=== PATIENT | male | born 1970 | race Caucasian/White ===

== ENCOUNTER → 2018-06-02 12:37 | Outpatient (CLI) | payer OTHER, MEDICAID, SELFPAY ==
[2018-06-02 13:55] LABS: Alanine Aminotransferase 33 IU/L (21-72); Albumin 4.5 g/dL (3.5-5.0); Albumin Globulin Ratio 1.3 (1.0-2.8); Alkaline Phosphatase 80 U/L (38-126); Aspartate Aminotransferase 21 IU/L (17-59); Bilirubin Total 0.5 mg/dL (0.2-1.3); Blood Urea Nitrogen 15 mg/dL (9-20); Carbon Dioxide 32 mmol/L (22-32); Chloride 96 mmol/L (98-107); Cholesterol 179 mg/dL (140-199); Estimated Glomerular Filt Rate > 60.0 mL/min (>60); Globulin 3.6 g/dL (1.7-4.1); Glucose 96 mg/dL (70-100); HDL Cholesterol 65 mg/dL (40-60); HEMOLYSIS < 15 (0-50); LDL Cholesterol Calculated 103 mg/dL (<100); Potassium 4.2 mmol/L (3.4-5.1); Sodium 142 mmol/L (137-145); Total Protein 8.1 g/dL (6.3-8.2); Triglycerides 55 mg/dL (35-150)
[2018-06-02 13:58] LABS: Hematocrit 40.3 % (41-53); Hemoglobin 13.9 g/dL (13.5-17.5); Mean Corpuscular HGB Conc 34.5 % (30-36); Mean Corpuscular Hemoglobin 31.2 PG (26-34); Mean Corpuscular Volume 90.2 fL (80-100); Platelet Count 141 X10^3/uL (150-400); Red Blood Cell Count 4.46 X10^6/uL (4.5-5.9); White Blood Cell Count 5.6 X10^3/uL (4.5-11.0)
[2018-06-02 13:59] LABS: Hemoglobin A1C% w Est Avg Glu > 14.0 % (4.0-6.0)
[2018-06-02 14:27] LABS: TSH w/ Reflex to FT4 1.96 uIU/mL (0.47-4.68)
[2018-06-02 14:58] LABS: Creatinine Urine Random 34.7 mg/dL
[2018-06-02 15:03] LABS: Microalbumi Creatinin Ratio Ur 161.3 ug/mg CR (<30); Microalbumin Urine Random 5.6 mg/dL (0-1.6)
[2018-06-02 15:18] LABS: Vitamin D 25 Hydroxy (D3) 21.3 ng/mL (30.0-100.0)
== END ==
PROVIDERS: Visit Provider Student in an Organized Health Care Education/Training Program
DX: R53.83 Other fatigue (principal); E11.9 Type 2 diabetes mellitus without complications; Z79.899 Other long term (current) drug therapy; E55.9 Vitamin D deficiency, unspecified; G62.9 Polyneuropathy, unspecified
CPT/HCPCS: 36415; 80053; 80061; 82043; 82306; 82570; 83036; 84443; 85027; 86341

== ENCOUNTER → 2019-04-15 07:57 | Outpatient (CLI) | payer OTHER, MEDICAID, SELFPAY ==
[2019-04-15 09:03] LABS: Hemoglobin 11.8 g/dL (13.5-17.5); Mean Corpuscular HGB Conc 34.7 % (30-36); Mean Corpuscular Hemoglobin 31.8 PG (26-34); Mean Corpuscular Volume 91.7 fL (80-100); Platelet Count 149 X10^3/uL (150-400); Red Blood Cell Count 3.71 X10^6/uL (4.5-5.9); Red Cell Distribution Width 13.3 % (11.6-14.8); White Blood Cell Count 6.1 X10^3/uL (4.5-11.0)
[2019-04-15 09:07] LABS: Creatinine Urine Random 27.7 mg/dL
[2019-04-15 09:12] LABS: Microalbumi Creatinin Ratio Ur 220.2 ug/mg CR (<30); Microalbumin Urine Random 6.1 mg/dL (0-1.6)
[2019-04-15 09:13] LABS: BUN Creatinine Ratio 23.3 (6-22); Blood Urea Nitrogen 14 mg/dL (9-20); Calcium 9.1 mg/dL (8.4-10.2); Carbon Dioxide 29 mmol/L (22-32); Chloride 96 mmol/L (98-107); Estimated Glomerular Filt Rate > 60.0 mL/min (>60); Glucose 475 mg/dL (70-100); HEMOLYSIS < 15 (0-50); Potassium 3.9 mmol/L (3.4-5.1); Sodium 135 mmol/L (137-145)
[2019-04-15 09:29] LABS: Creatine Kinase 99 U/L (55-170)
[2019-04-15 09:31] LABS: Hemoglobin A1C% w Est Avg Glu 13.7 % (4.0-6.0)
[2019-04-15 09:35] LABS: Vitamin D 25 Hydroxy (D3) 19.1 ng/mL (30.0-100.0)
== END ==
PROVIDERS: PCP Student in an Organized Health Care Education/Training Program; Visit Provider Student in an Organized Health Care Education/Training Program
DX: E11.21 Type 2 diabetes mellitus with diabetic nephropathy (principal); E55.9 Vitamin D deficiency, unspecified; M79.10 Myalgia, unspecified site
CPT/HCPCS: 36415; 80048; 82043; 82306; 82550; 82570; 83036; 85027

== ENCOUNTER 2019-05-18 18:39 | Emergency (ER) | payer OTHER, MEDICAID, SELFPAY ==
[2019-05-18] VITALS (9 sets, daily range): BP systolic 81–126; BP diastolic 64–95; PULSE 98–105; RESP 13–20; TEMP 36.3; O2SAT 94–100
--- NOTE | 2019-05-18 19:02 | DI.CT.S_ITS ---
PROCEDURE: CT HEAD/BRAIN WO CON INDICATIONS: syncope and near syncope TECHNIQUE: Noncontrast 4.5 mm thick angled axial sections acquired from the foramen magnum to the vertex, with coronal and sagittal reformats. For radiation dose reduction, the following was used: automated exposure control, adjustment of mA and/or kV according to patient size. COMPARISON: None. FINDINGS: Image quality: Excellent. CSF spaces: Basal cisterns are patent. No extra-axial fluid collections. Ventricles are normal in size and shape. Brain: No midline shift. No intracranial masses or hemorrhage. Johnson-white matter interface is normal. Skull and face: Calvarium and visualized facial bones are intact, without suspicious lesions. Posterior scalp swelling Sinuses: Visualized sinuses and mastoids are clear. IMPRESSION: No acute intracranial process. Posterior scalp swelling Dictated by: Sunday Clay M.D. on 05/18/2019 at 19:21 Approved by: Sunday Clay M.D. on 05/18/2019 at 19:24
--- NOTE | 2019-05-18 19:03 | DI.RAD.S_ITS ---
PROCEDURE: XR CHEST 2V INDICATIONS: syncope TECHNIQUE: 2 views of the chest were acquired. COMPARISON: None. FINDINGS: Surgical changes and devices: None. Lungs and pleura: Lungs are clear. No pleural effusions or pneumothorax. Mediastinum: Mediastinal contours are normal. Heart size is normal. Bones and chest wall: No suspicious bony abnormalities. Soft tissues appear unremarkable. IMPRESSION: No acute disease. Dictated by: Sunday Clay M.D. on 05/18/2019 at 19:49 Approved by: Sunday Clay M.D. on 05/18/2019 at 19:50
[2019-05-18 19:10] LABS: Add Manual Diff / Slide Review NO; Basophils Absolute Auto 0 /uL (0-100); Basophils Percent Auto 0.3 % (0-2); Eosinophils Absolute Auto 200 /uL (0-450); Eosinophils Percent Auto 2.3 % (2-4); Hematocrit 35.5 % (41-53); Hemoglobin 12.3 g/dL (13.5-17.5); Lymphocytes Absolute Auto 2400 /uL (1100-4500); Lymphocytes Percent Auto 35.7 % (25-40); Mean Corpuscular HGB Conc 34.7 % (30-36); Mean Corpuscular Hemoglobin 31.8 PG (26-34); Mean Corpuscular Volume 91.5 fL (80-100); Monocytes Absolute Auto 700 /uL (0-900); Monocytes Percent Auto 10.2 % (3-14); Neutrophils Absolute Auto 3400 /uL (1500-7000); Neutrophils Percent Auto 51.5 % (50-75); Platelet Count 149 X10^3/uL (150-400); Red Blood Cell Count 3.88 X10^6/uL (4.5-5.9); Red Cell Distribution Width 13.4 % (11.6-14.8); White Blood Cell Count 6.6 X10^3/uL (4.5-11.0)
[2019-05-18] MEDS: SODIUM CHLORIDE 0.9% 1,000 ML 1000 ML IV (19:11)
[2019-05-18 19:15] LABS: INR 0.9 (0.9-1.3); Prothrombin Time 10.7 SECONDS (10.1-12.7)
[2019-05-18 19:18] LABS: PTT Partial Thromboplastin Tim 30 SECONDS (26.4-36.2)
[2019-05-18 19:23] LABS: Alanine Aminotransferase 18 IU/L (21-72); Albumin 3.7 g/dL (3.5-5.0); Albumin Globulin Ratio 1.1 (1.0-2.8); Alkaline Phosphatase 80 U/L (38-126); Aspartate Aminotransferase 22 IU/L (17-59); Bilirubin Total 0.4 mg/dL (0.2-1.3); Blood Urea Nitrogen 32 mg/dL (9-20); Calcium 10.4 mg/dL (8.4-10.2); Carbon Dioxide 30 mmol/L (22-32); Chloride 99 mmol/L (98-107); Creatine Kinase 45 U/L (55-170); Estimated Glomerular Filt Rate > 60.0 mL/min (>60); Globulin 3.4 g/dL (1.7-4.1); Glucose 267 mg/dL (70-100); HEMOLYSIS < 15 (0-50); Lipase 100 U/L (23-300); Potassium 4.2 mmol/L (3.4-5.1); Sodium 136 mmol/L (137-145); Total Protein 7.1 g/dL (6.3-8.2)
[2019-05-18 19:35] LABS: Troponin I < 0.012 ng/mL (0.01-0.034)
--- NOTE | 2019-05-18 19:50 | PC.NURSE ---
c/o multiple syncopal events over past days. x 3 today. States they happen when he changes position, from sitting to standing, but has happened occasionally when walking, having been upright for a while. He denies chest pain, shortness of breath, feeling of heart racing, black or bloody stools, nausea / vomiting. He is pale, warm and dry w/ easy work of breathing. Normal Neuro status w/o focal weakness.
--- NOTE | 2019-05-18 20:12 | ED.DIZZY ---
HPI - Dizziness <Gualberto BRYNN Braxton - Last Filed: 05/18/19 23:55> General Chief Complaint: Syncope Stated Complaint: low blood pressure/faint x4 days Time Seen by Provider: 05/18/19 18:52 Source: patient and family Mode of arrival: Wheelchair Limitations: no limitations History of Present Illness HPI Narrative: This is a 49-year-old gentleman, smoker, who presents to ED with his mother with chief complain of frequent dizziness with low blood pressure and syncopal episode x3 for about a minute or less per his mother. However, this has been an ongoing problem for last 4-5 months per the patient's PMR. Patient reports dizziness with changing in positions. Patient has a history of insulin-dependent diabetes. Patient has been having low blood pressure in SBP in 80- 90's. The patient denies currently on hypertensive medication. Patient states his usual blood glucose ranged from 200-300 mg/dL and adjust his insulin dose after the [facility]SB[facility] check each AC along long acting Insulin use. Patient also states he has been having frequent loose dark stools about 6 to 8 times a day and has occasional stool incontinence and night. Patient reports he has been very well hydrating with water daily. Takes multiple doses of Pepto-Bismol to cope with this and dark stool could be from Pepto-Bismol use. Patient denies chest pain, palpitations, irregular heartbeats, breathing difficulty, abdominal pain, tarry stools or urinary symptoms, fever/chills, nausea or vomiting. Patient denies limb weakness, vision change, speech difficulty. Related Data Home Medications Medication Instructions Recorded Confirmed insulin aspart U-100 100 unit/mL 15 unit SUBCUT QAC ml 06/02/18 04/15/19 (3 mL) subcutaneous pen insulin glargine 100 unit/mL (3 50 unit SUBCUT DAILY 06/02/18 04/15/19 mL) subcutaneous pen Previous Rx's Medication Instructions Recorded aspirin 81 mg tablet,delayed 81 mg PO DAILY #90 tab 06/02/18 release blood sugar diagnostic #100 each 06/02/18 atorvastatin 40 mg tablet 40 mg PO BEDTIME #90 tab 09/17/18 gabapentin 300 mg capsule 300 mg PO TID #270 cap 09/17/18 metformin 1,000 mg tablet,extended 2,000 mg PO QPM #180 tab 09/17/18 release 24hr insulin aspart U-100 100 unit/mL See Rx Instructions SUBCUT [facility] #10 09/22/18 (3 mL) subcutaneous pen ml sertraline 50 mg tablet 50 mg PO DAILY #30 tab 04/15/19 ferrous sulfate [Feosol] 325 mg PO DAILY #30 tab 05/18/19 Allergies Allergy/AdvReac Type Severity Reaction Status Date / Time No Known Drug Allergies Allergy Verified 04/15/19 08:41 Review of Systems <BRYNN Hairston - Last Filed: 05/18/19 23:55> Review of Systems Narrative: General: Denies fever, chills, fatigue, malaise, sweats. HEENT: Denies sinus pain, ear pain, sore throat, difficulty swallowing, dizziness. Respiratory: Denies dyspnea, cough, wheezing, hemoptysis, sputum. Cardiovascular: Denies chest pain, palpitations, orthopnea, edema. Gastrointestinal: Denies nausea, vomiting, abdominal pain, diarrhea, constipation, melena. : Denies dysuria, frequency, incontinence, hematuria, urinary retention. Musculoskeletal: Denies weakness, joint pain or bony pain. Skin: Denies rash, skin lesions, or other. Neurologic: Reports near-syncope or syncopal episode with dizziness. Denies weakness, headache, numbness, change in speech, confusion, seizures, incoordination. Psychiatric: No concerning psychosocial issues. 12-point review of systems is negative except for those stated above. Patient History <BRYNN Hairston - Last Filed: 05/18/19 23:55> Social History Smoking Status: Current some day smoker Substance Use Type: does not use Exam <BRYNN Hairston - Last Filed: 05/18/19 23:55> Narrative Exam Narrative: GEN: Alert, oriented x 3, medically fragile appearing and appears to be older than stated age and in no acute distress. Head: Normal cephalic, atraumatic. No scalp or temporal tenderness, palpable mass or rash. EYES: Pupils are equal, round, and reactive to light and accommodation. Extraocular muscles are intact bilaterally. There is no subconjunctival hemorrhage, exudate and sclera non-icteric. ENT: Bilateral auditory canals and tympanic membranes clear. Hearing grossly intact. Nose without bleeding, purulent discharge or deviation. Facial sinuses nontender to palpate. Mucous membrane moist, no mucosal lesion. Throat without erythema, tonsillar hypertrophy or exudate. Uvula in midline, airway patent. Neck: Trachea in midline. No JVD, non-tender without lymphadenopathy. No masses or thyroid megaly. Supple, non-tender and no meningeal signs. CARDIAC: Normal tachycardia without murmurs, gallops, or rubs. No chest wall tenderness. No peripheral edema, cyanosis or pallor. Capillary refill is less than 2 seconds. RESPIRATORY: Lungs are clear to auscultate bilaterally. No cough, wheezes, rales, or rhonchi. No stridor, respiratory distress, increase work of breathing, or accessary muscle used. ABD: Abdomen soft, nontender and non-distended. No guarding or rebound tenderness to palpate. Bowel sounds are normal in all 4 quadrants. There is no palpable masses or organomegaly. EXT: Full painless ROM of all extremities with no loss of sensation, strength, effusion or edema. SKIN: Warm, dry, pale. No erythema, lesions or rash over visible areas. BACK: Nontender without deformity or crepitance. No flank tenderness. NEUROLOGICAL: Alert and oriented to place, time and person. Sensation and motor function intact bilaterally. No facial droops, dysphasia. PSYCHIATRIC: Good judgement and reason, without hallucinations, abnormal affect or abnormal behaviors during the examination. Initial Vital Signs Initial Vital Signs: Vital Signs Pulse Rate 105 H 05/18/19 18:50 Respiratory Rate 13 05/18/19 18:50 Blood Pressure 89/64 L 05/18/19 18:50 Pulse Oximetry 99 05/18/19 18:50 <Zeeshan Rodriguez DO - Last Filed: 05/19/19 05:03> Initial Vital Signs Initial Vital Signs: Vital Signs Pulse Rate 105 H 05/18/19 18:50 Respiratory Rate 13 05/18/19 18:50 Blood Pressure 89/64 L 05/18/19 18:50 Pulse Oximetry 99 05/18/19 18:50 Procedures <BRYNN Hairston - Last Filed: 05/18/19 23:55> Stool Hemoccult Procedural Steps Taken: stool placed in appropriate test area, developer placed on stool and control areas and controls appropriately positive and negative Hemoccult result: negative Additional Comments: The patient tolerated well, EMILY Scales stand-by assisted Scores <BRYNN Hairston Last Filed: 05/18/19 23:55> GCS [place] coma scale eye opening: Spontaneous Abida coma scale verbal response: Orientated Abida coma scale motor response: Obey commands [place] coma scale total score: 15 NIH Stroke Scale Level of Conciousness: Alert, keenly responsive Ask month/age: Answers both questions correctly. Open/close eyes, close hand: Performs both tasks correctly Best gaze horizontal: Normal Visual lau: No visual loss Facial palsy: Normal symetrical movement Left arm drift: No drift for full 10 sec Right arm drift: No drift for full 10 sec Left leg drift: No drift for full 10 sec Right leg drift: No drift for full 10 sec Limb ataxia: Absent Sensory on face/arms/legs: Normal, no sensory loss Best language: No aphasia, normal Dysarthria: Normal Extinction or inattention: No abnormality Total NIH Stroke scale score: 0 Course <BRYNN Hairston - Last Filed: 05/18/19 23:55> Orders Ordered: ED Orders 05/18/19 20:20 Urine Microscopic Stat Discontinued Medications Sodium Chloride (Normal Saline 0.9%) 1,000 mls @ 1,000 mls/hr IV BOLUS ONE Stop: 05/18/19 20:00 Last Infusion: 05/18/19 20:14 Dose: 1,000 mls/hr Documented by: Admin: 05/18/19 19:11 Dose: 1,000 mls/hr Documented by: ALEXIS Sodium Chloride (Normal Saline 0.9%) 1,000 mls @ 150 mls/hr IV CONT IVONNE Last Infusion: 05/18/19 22:05 Dose: 150 mls/hr Documented by: Admin: 05/18/19 20:30 Dose: 150 mls/hr Documented by: SHIRLEY Vital Signs Vital signs: Vital Signs - 8 hr 05/18/19 21:11 05/18/19 21:30 Pulse Rate 100 H 98 H Respiratory Rate 20 16 Blood Pressure [Left Arm] 122/71 126/77 Pulse Oximetry 94 <Zeeshan Rodriguez DO - Last Filed: 05/19/19 05:03> Orders Ordered: ED Orders 05/18/19 20:20 Urine Microscopic Stat Discontinued Medications Sodium Chloride (Normal Saline 0.9%) 1,000 mls @ 1,000 mls/hr IV BOLUS ONE Stop: 05/18/19 20:00 Last Infusion: 05/18/19 20:14 Dose: 1,000 mls/hr Documented by: Admin: 05/18/19 19:11 Dose: 1,000 mls/hr Documented by: ALEXIS Sodium Chloride (Normal Saline 0.9%) 1,000 mls @ 150 mls/hr IV CONT IVONNE Last Infusion: 05/18/19 22:05 Dose: 150 mls/hr Documented by: Admin: 05/18/19 20:30 Dose: 150 mls/hr Documented by: SHIRLEY Vital Signs Vital signs: Vital Signs - 8 hr 05/18/19 21:11 05/18/19 21:30 Pulse Rate 100 H 98 H Respiratory Rate 20 16 Blood Pressure [Left Arm] 122/71 126/77 Pulse Oximetry 94 MDM - Dizziness <BRYNN Hairston - Last Filed: 05/18/19 23:55> Differential Diagnosis Differential diagnosis: Likely orthostatic hypotension, cerebrovascular accident and other (Dehydration, GI bleed, syncopal episode) Medical Records Attestation: I reviewed the patient's medical records. Lab Data Attestation: I reviewed the patient's lab results. Result diagrams: 05/18/19 19:00 05/18/19 19:00 Labs: Lab Results 05/18/19 05/18/19 05/18/19 Range/Units 19:00 19:00 19:00 WBC 6.6 (4.5-11.0) X10^3/uL RBC 3.88 L (4.5-5.9) X10^6/uL Hgb 12.3 L (13.5-17.5) g/dL Hct 35.5 L (41-53) % MCV 91.5 (80-100) fL MCH 31.8 (26-34) PG MCHC 34.7 (30-36) % RDW 13.4 (11.6-14.8) % Plt Count 149 L (150-400) X10^3/uL Neut % (Auto) 51.5 (50-75) % Lymph % (Auto) 35.7 (25-40) % Lawrence % (Auto) 10.2 (3-14) % Eos % (Auto) 2.3 (2-4) % Baso % (Auto) 0.3 (0-2) % Neut # (Auto) 3400 (8457-8529) /uL Lymph # (Auto) 2400 (6140-6093) /uL Lawrence # (Auto) 700 (0-900) /uL Eos # (Auto) 200 (0-450) /uL Baso # (Auto) 0 (0-100) /uL PT (10.1-12.7) SECONDS INR (0.9-1.3) APTT (26.4-36.2) SECONDS Sodium 136 L (137-145) mmol/L Potassium 4.2 (3.4-5.1) mmol/L Chloride 99 (98-107) mmol/L Carbon Dioxide 30 (22-32) mmol/L BUN 32 H (9-20) mg/dL Creatinine 0.80 (0.66-1.25) mg/dL Estimated GFR > 60.0 (>60) mL/min BUN/Creatinine Ratio 40.0 H (6-22) Glucose 267 H (70-100) mg/dL Calcium 10.4 H (8.4-10.2) mg/dL Total Bilirubin 0.4 (0.2-1.3) mg/dL AST 22 (17-59) IU/L ALT 18 L (21-72) IU/L Alkaline Phosphatase 80 (38-126) U/L Total Creatine Kinase 45 L (55-170) U/L CK-MB (CK-2) TNP CK-MB (CK-2) Rel Index TNP Troponin I < 0.012 (0.01-0.034) ng/mL Total Protein 7.1 (6.3-8.2) g/dL Albumin 3.7 (3.5-5.0) g/dL Globulin 3.4 (1.7-4.1) g/dL Albumin/Globulin Ratio 1.1 (1.0-2.8) Lipase 100 (23-300) U/L Urine RBC (0-5/HPF) Urine WBC (0-5/HPF) Urine Bacteria (None) Hyaline Casts (None) Ur Culture Indicated? 05/18/19 05/18/19 Range/Units 19:00 20:20 WBC (4.5-11.0) X10^3/uL RBC (4.5-5.9) X10^6/uL Hgb (13.5-17.5) g/dL Hct (41-53) % MCV (80-100) fL MCH (26-34) PG MCHC (30-36) % RDW (11.6-14.8) % Plt Count (150-400) X10^3/uL Neut % (Auto) (50-75) % Lymph % (Auto) (25-40) % Lawrence % (Auto) (3-14) % Eos % (Auto) (2-4) % Baso % (Auto) (0-2) % Neut # (Auto) (7451-4798) /uL Lymph # (Auto) (5668-9826) /uL Lawrence # (Auto) (0-900) /uL Eos # (Auto) (0-450) /uL Baso # (Auto) (0-100) /uL PT 10.7 (10.1-12.7) SECONDS INR 0.9 (0.9-1.3) APTT 30 (26.4-36.2) SECONDS Sodium (137-145) mmol/L Potassium (3.4-5.1) mmol/L Chloride (98-107) mmol/L Carbon Dioxide (22-32) mmol/L BUN (9-20) mg/dL Creatinine (0.66-1.25) mg/dL Estimated GFR (>60) mL/min BUN/Creatinine Ratio (6-22) Glucose (70-100) mg/dL Calcium (8.4-10.2) mg/dL Total Bilirubin (0.2-1.3) mg/dL AST (17-59) IU/L ALT (21-72) IU/L Alkaline Phosphatase (38-126) U/L Total Creatine Kinase (55-170) U/L CK-MB (CK-2) CK-MB (CK-2) Rel Index Troponin I (0.01-0.034) ng/mL Total Protein (6.3-8.2) g/dL Albumin (3.5-5.0) g/dL Globulin (1.7-4.1) g/dL Albumin/Globulin Ratio (1.0-2.8) Lipase (23-300) U/L Urine RBC None seen (0-5/HPF) Urine WBC None seen (0-5/HPF) Urine Bacteria None seen (None) Hyaline Casts 0-1/lpf (None) Ur Culture Indicated? Cult not indicated Point of Care Testing Glucose POC 250 Urine Dip Bedside Urine Glucose 500 mg/dl Bedside Urine Bilirubin - Negative Bedside Urine Ketone - Negative Urine Specific [place] 1.015 Bedside Urine Occult Blood - Negative Bedside Urine pH 6.0 Bedside Urine Protein +/- 15 Bedside Urine Urobilinogen - Negative Bedside Urine Nitrite - Negative Bedside Urine Leukocytes - Negative Esterase Imaging Data Chest x-ray: Radiologist's impression: [address] [address] XRay Report Signed Patient: Thaddeus Ferris Jr LMR#: [id number] : 1970Acct:[id number] Age/Sex: 49 / MDate of Service: 05/18/19 Loc: ED Accession Number: [id number] Procedure: XR chest 2V Ordering Provider: Gualberto Braxton PROCEDURE: XR CHEST 2V INDICATIONS: syncope TECHNIQUE: 2 views of the chest were acquired. COMPARISON: None. FINDINGS: Surgical changes and devices: None. Lungs and pleura: Lungs are clear. No pleural effusions or pneumothorax. Mediastinum: Mediastinal contours are normal. Heart size is normal. Bones and chest wall: No suspicious bony abnormalities. Soft tissues appear unremarkable. IMPRESSION: No acute disease. Dictated by: Sunday Clay M.D. on 05/18/2019 at 19:49 Approved by: Sunday Clay M.D. on 05/18/2019 at 19:50 CT scan - head: Radiologist's impression: [address] [address] [address] Scan Report Signed Patient: Thaddeus Ferris Jr LMR#: [id number] : 1970Acct:[id number] Age/Sex: 49 / MDate of Service: 05/18/19 Loc: ED Accession Number: [id number] Procedure: CT head/brain wo con Ordering Provider: Gualberto Braxton PROCEDURE: CT HEAD/BRAIN WO CON INDICATIONS: syncope and near syncope TECHNIQUE: Noncontrast 4.5 mm thick angled axial sections acquired from the foramen magnum to the vertex, with coronal and sagittal reformats. For radiation dose reduction, the following was used: automated exposure control, adjustment of mA and/or kV according to patient size. COMPARISON: None. FINDINGS: Image quality: Excellent. CSF spaces: Basal cisterns are patent. No extra-axial fluid collections. Ventricles are normal in size and shape. Brain: No midline shift. No intracranial masses or hemorrhage. Johnson-white matter interface is normal. Skull and face: Calvarium and visualized facial bones are intact, without suspicious lesions. Posterior scalp swelling Sinuses: Visualized sinuses and mastoids are clear. IMPRESSION: No acute intracranial process. Posterior scalp swelling Dictated by: Sunday Clay M.D. on 05/18/2019 at 19:21 Approved by: Sunday Clay M.D. on 05/18/2019 at 19:24 ECG Data Attestation: I personally reviewed and interpreted this ECG as follows: Prior ECG tracings: not available for review Interpretation: Sinus tachycardia rate at 100. Normal Vina. No AT elevation or depression. MDM Narrative Medical decision making narrative: This is 49-year-old gentleman who accompanied his mother with dizziness and syncopal episode. Patient has a history of insulin-dependent diabetes and recently has been running low blood pressure. Patient has chronic and multiple episodes of diarrhea daily without fever or abdominal cramping. No recent antibiotic medication has been used. Patient denies constitutional symptoms. Patient came in with low blood pressure in the upper 80s in systolic BP with sinus tachycardia rate at 100-110's. Alert and oriented x3. Patient's fingerstick blood glucose was 250 mg/dL upon arrival. Patient did not have focal any neurological deficit with 0 NIH score. EKG was sinus tachycardia rate at 100. Head CT reading without acute findings. Normal chest x-ray. Mild anemia with H&H of 12.3/35.5. BUN of 32 with normal creatinine level. Fecal occult test was negative for GI bleed. Patient's blood pressure and heart rate had improved after 1250 ml of normal saline infusion and patient reports improvement. Patient has been afebrile in ED. According to mother patient usually in prolonged sitting and lying position at home without much activities. Patient advised adequate oral hydration with water and sports drink and take time before changing positions as patient was treated for as orthostatic hypotension and and dehydration for the syncopal episode. Patient was discharged to home with iron for mild anemia. Patient advised to follow up with primary care physician for further evaluation for syncopal episode such as cardiac catheterization technologist and chronic frequent diarrheas. Patient verbalized understanding and agrees with the treatment plan. Strict return precautions were discussed with the patient. Patient departing ER in stable gait with his mother. <Zeeshan Rodriguez DO - Last Filed: 05/19/19 05:03> Lab Data Labs: Lab Results 05/18/19 05/18/19 05/18/19 Range/Units 19:00 19:00 19:00 WBC 6.6 (4.5-11.0) X10^3/uL RBC 3.88 L (4.5-5.9) X10^6/uL Hgb 12.3 L (13.5-17.5) g/dL Hct 35.5 L (41-53) % MCV 91.5 (80-100) fL MCH 31.8 (26-34) PG MCHC 34.7 (30-36) % RDW 13.4 (11.6-14.8) % Plt Count 149 L (150-400) X10^3/uL Neut % (Auto) 51.5 (50-75) % Lymph % (Auto) 35.7 (25-40) % Lawrence % (Auto) 10.2 (3-14) % Eos % (Auto) 2.3 (2-4) % Baso % (Auto) 0.3 (0-2) % Neut # (Auto) 3400 (4419-1524) /uL Lymph # (Auto) 2400 (5827-5614) /uL Lawrence # (Auto) 700 (0-900) /uL Eos # (Auto) 200 (0-450) /uL Baso # (Auto) 0 (0-100) /uL PT (10.1-12.7) SECONDS INR (0.9-1.3) APTT (26.4-36.2) SECONDS Sodium 136 L (137-145) mmol/L Potassium 4.2 (3.4-5.1) mmol/L Chloride 99 (98-107) mmol/L Carbon Dioxide 30 (22-32) mmol/L BUN 32 H (9-20) mg/dL Creatinine 0.80 (0.66-1.25) mg/dL Estimated GFR > 60.0 (>60) mL/min BUN/Creatinine Ratio 40.0 H (6-22) Glucose 267 H (70-100) mg/dL Calcium 10.4 H (8.4-10.2) mg/dL Total Bilirubin 0.4 (0.2-1.3) mg/dL AST 22 (17-59) IU/L ALT 18 L (21-72) IU/L Alkaline Phosphatase 80 (38-126) U/L Total Creatine Kinase 45 L (55-170) U/L CK-MB (CK-2) TNP CK-MB (CK-2) Rel Index TNP Troponin I < 0.012 (0.01-0.034) ng/mL Total Protein 7.1 (6.3-8.2) g/dL Albumin 3.7 (3.5-5.0) g/dL Globulin 3.4 (1.7-4.1) g/dL Albumin/Globulin Ratio 1.1 (1.0-2.8) Lipase 100 (23-300) U/L Urine RBC (0-5/HPF) Urine WBC (0-5/HPF) Urine Bacteria (None) Hyaline Casts (None) Ur Culture Indicated? 05/18/19 05/18/19 Range/Units 19:00 20:20 WBC (4.5-11.0) X10^3/uL RBC (4.5-5.9) X10^6/uL Hgb (13.5-17.5) g/dL Hct (41-53) % MCV (80-100) fL MCH (26-34) PG MCHC (30-36) % RDW (11.6-14.8) % Plt Count (150-400) X10^3/uL Neut % (Auto) (50-75) % Lymph % (Auto) (25-40) % Lawrence % (Auto) (3-14) % Eos % (Auto) (2-4) % Baso % (Auto) (0-2) % Neut # (Auto) (2647-2004) /uL Lymph # (Auto) (4082-7913) /uL Lawrence # (Auto) (0-900) /uL Eos # (Auto) (0-450) /uL Baso # (Auto) (0-100) /uL PT 10.7 (10.1-12.7) SECONDS INR 0.9 (0.9-1.3) APTT 30 (26.4-36.2) SECONDS Sodium (137-145) mmol/L Potassium (3.4-5.1) mmol/L Chloride (98-107) mmol/L Carbon Dioxide (22-32) mmol/L BUN (9-20) mg/dL Creatinine (0.66-1.25) mg/dL Estimated GFR (>60) mL/min BUN/Creatinine Ratio (6-22) Glucose (70-100) mg/dL Calcium (8.4-10.2) mg/dL Total Bilirubin (0.2-1.3) mg/dL AST (17-59) IU/L ALT (21-72) IU/L Alkaline Phosphatase (38-126) U/L Total Creatine Kinase (55-170) U/L CK-MB (CK-2) CK-MB (CK-2) Rel Index Troponin I (0.01-0.034) ng/mL Total Protein (6.3-8.2) g/dL Albumin (3.5-5.0) g/dL Globulin (1.7-4.1) g/dL Albumin/Globulin Ratio (1.0-2.8) Lipase (23-300) U/L Urine RBC None seen (0-5/HPF) Urine WBC None seen (0-5/HPF) Urine Bacteria None seen (None) Hyaline Casts 0-1/lpf (None) Ur Culture Indicated? Cult not indicated Point of Care Testing Glucose POC 250 Urine Dip Bedside Urine Glucose 500 mg/dl Bedside Urine Bilirubin - Negative Bedside Urine Ketone - Negative Urine Specific [place] 1.015 Bedside Urine Occult Blood - Negative Bedside Urine pH 6.0 Bedside Urine Protein +/- 15 Bedside Urine Urobilinogen - Negative Bedside Urine Nitrite - Negative Bedside Urine Leukocytes - Negative Esterase Discharge Plan Departure Patient Disposition: Home Clinical Impression: Near syncope, Dehydration Discharge Date/Time: 05/18/19 22:05 Instructions: DI for Syncope in Adults (Fainting), DI for Dehydration -- Adult Activity Restrictions/Additional Instructions: You have been diagnosed with [syncope or near syncope and dehydration likely from frequent loose stool. Head CT and chest x-ray tests shows no acute findings in her brain and lungs. You have mild anemia and sodium level was mildly decreased with signs of dehydration per blood test. You had elevated blood sugar today as of 267. Cardiac enzymes was negative. EKG did not show signs of heart attack.]. What to do: *Take your medications as directed. Please start taking iron pill this will help with anemia. Please hydrate herself adequately with water and sports drinks which has electrolytes intermittently. Please monitor your blood pressure and blood glucose regularly and log the in a book and bring it to your doctor's appointment. If you continue to have loose stools, this may need to be evaluated and possible a referral to GI specialist. Please take time before you getting out of chair or bed. *Follow up with your primary care provider in 2-3 days, call for an appointment. Let them know you were seen in the ED and that we asked you to be seen in follow up. *Return to ED if you have any new, worsening, or concerning symptoms, such as [chest pain, breathing difficulty, unable to tolerate fluids, feel like passing out, or any acute concerns]. Prescriptions: New ferrous sulfate [Feosol] 325 mg (65 mg iron) tablet 325 mg PO DAILY Qty: 30 RF: 0 No Action insulin aspart U-100 100 unit/mL insulin pen See Rx Instructions SUBCUT QAC Qty: 10 RF: 11 atorvastatin 40 mg tablet 40 mg PO BEDTIME Qty: 90 RF: 3 gabapentin 300 mg capsule 300 mg PO TID Qty: 270 RF: 1 metformin 1,000 mg tablet extended release 24hr 2,000 mg PO QPM Qty: 180 RF: 1 sertraline 50 mg tablet 50 mg PO DAILY Qty: 30 RF: 0 aspirin 81 mg tablet,delayed release (DR/EC) 81 mg PO DAILY Qty: 90 RF: 3 insulin aspart U-100 100 unit/mL insulin pen 15 unit SUBCUT QAC RF: 0 insulin glargine [Lantus Solostar U-100 Insulin] 100 unit/mL (3 mL) insulin pen 50 unit SUBCUT DAILY RF: 0 (DME) blood sugar diagnostic [Blood Glucose Test] strip See Dose Instructions .ROUTE .MEDSUPPLY Qty: 100 RF: 2 Referrals: Rashi Andrade MD [Primary Care Provider] -
[2019-05-18] MEDS: SODIUM CHLORIDE 0.9% 1,000 ML 150 ML IV (20:30)
[2019-05-18 21:50] LABS: Bacteria Urine None Seen; RBC Urine None Seen (0-5/HPF); WBC Urine None Seen (0-5/HPF)
[2019-05-18 22:00] LABS: Culture Indicated Urine Cult Not Indicated; Hyaline Casts Urine 0-1/LPF
== END 2019-05-18 22:05 | disposition home or self-care (01) ==
PROVIDERS: Emergency Provider Nurse Practitioner Family; PCP Student in an Organized Health Care Education/Training Program
DX: R55 Syncope and collapse (principal); E86.0 Dehydration; E11.9 Type 2 diabetes mellitus without complications; Z79.4 Long term (current) use of insulin; I95.9 Hypotension, unspecified; R00.0 Tachycardia, unspecified
CPT/HCPCS: 36415; 70450; 71046; 80053; 81003; 81015; 82550; 82962; 83690; 84484; 85025; 85610; 85730; 93005; 93010; 96360; 96361; 99285

== ENCOUNTER 2019-08-09 12:43 | Emergency (ER) | payer OTHER, MEDICAID, SELFPAY ==
[2019-08-09 12:48] VITALS: BP 134/84; PULSE 109; RESP 18; TEMP 36.7; O2SAT 99; BMI 23.1
[2019-08-09 12:50] VITALS: BP 134/84; PULSE 109; RESP 25; O2SAT 100
--- NOTE | 2019-08-09 12:53 | PC.NURSE ---
bilateral lower extremity swelling. Small cut from hitting right leg on back of lower leg. Patient has had some recent medication changes to see if it helps with his swelling. Denies chest pain or SOB.
--- NOTE | 2019-08-09 12:59 | ED_ITS ---
HPI - Extremity Problem <Megan BaezaBRYNN - Last Filed: 08/09/19 19:34> General Chief complaint: Extremity Problem,Nontraumatic Stated complaint: Swollen Feet and Legs Time Seen by Provider: 08/09/19 12:58 Source: patient Mode of arrival: Ambulatory Limitations: no limitations History of Present Illness HPI Narrative: 49yo male with a history of poorly-controlled diabetes, neuropathy, and hypertension, presents to the ED for bilateral leg swelling for the past week. He states he recently started on car band the pain and gabapentin on . Initially, he called his primary care provider's office and told him about the swelling and he was told to take the to gabapentin at bedtime versus 1 pill twice a day throughout the day. Patient switched the regimen pills but this did not improve his swelling. He states it is slightly gotten worse over the past few days. He denies any other symptoms such as chest pain, shortness of breath, history of heart failure, nausea, vomiting, diarrhea, fevers, chills, or other concerns. He reports small lacerations on his skin that have been oozing. Patient did report he had an episode of low blood sugars last evening. He states previously his blood sugars usually range in the 500s but has recently been started on a new regimen of insulin and now they're usually in the 300s. Related Data Home Medications Medication Instructions Recorded Confirmed Glucometer Relion #1 ea 05/21/19 07/27/19 aspirin 81 mg tablet,delayed 81 mg PO DAILY 07/27/19 08/09/19 release Insulin aspart SSI See Rx Instructions .ROUTE .COMPLEX 07/28/19 08/09/19 albuterol sulfate 1 - 2 puff INHALATION Q4H PRN 08/09/19 08/09/19 insulin aspart U-100 [Novolog 10 unit SUBCUT AC 08/09/19 08/09/19 U-100 Insulin aspart] insulin glargine [Lantus Solostar 50 unit SUBCUT DAILY 08/09/19 08/09/19 U-100 Insulin] Previous Rx's Medication Instructions Recorded blood sugar diagnostic #100 each 06/02/18 atorvastatin 40 mg tablet 40 mg PO BEDTIME #90 tab 09/17/18 gabapentin 300 mg capsule 300 mg PO TID #270 cap 09/17/18 ferrous sulfate [Feosol] 325 mg PO DAILY #30 tab 05/18/19 PEN NEEDLES #100 each 05/21/19 carbamazepine 200 mg tablet 200 mg PO BID #60 tab 07/27/19 metformin 750 mg tablet,extended 1,500 mg PO DAILY #180 tab 07/27/19 release 24 hr GLUCOSE TEST STRIPS #100 each 07/28/19 insulin syringe-needle U-100 1 mL #300 each 08/03/19 29 gauge x 1/2 Allergies Allergy/AdvReac Type Severity Reaction Status Date / Time No Known Drug Allergies Allergy Verified 07/27/19 08:42 Review of Systems <BRYNN Winter - Last Filed: 08/09/19 19:34> Review of Systems Narrative: REVIEW OF SYSTEMS: GENERAL: Denies fever or chills. HENT: No head trauma, hearing loss or sore throat. EYES: No loss of vision, double vision, eye pain, or irritation. CARDIOVASCULAR: No chest pain or syncope. RESPIRATORY: No shortness of breath or cough. GASTROINTESTINAL: No nausea, vomiting, diarrhea, or constipation. GENITOURINARY: No flank pain or dysuria. MUSCULOSKELETAL: Complains of bilateral lower leg swelling, see HPI. INTEGUMENTARY: No rash, lesions, or pruritus. NEURO: No numbness, tingling, memory loss, or confusion. PSYCH: No behavior or mood changes. Patient History <BRYNN Winter - Last Filed: 08/09/19 19:34> Medical History Diabetic nephropathy (Chronic) Social History Smoking Status: Current some day smoker Smoking Status: Current some day smoker Substance Use Type: does not use Exam <BRYNN Winter - Last Filed: 08/09/19 19:34> Initial Vital Signs Initial Vital Signs: Vital Signs Temperature 98.0 F 08/09/19 12:48 Pulse Rate 109 H 08/09/19 12:48 Respiratory Rate 18 08/09/19 12:48 Blood Pressure 134/84 08/09/19 12:48 Pulse Oximetry 99 08/09/19 12:48 PHYSICAL EXAMINATION: GENERAL: Well groomed, alert, and cooperative. Answers questions promptly and appropriately. HENT: Normocephalic, atraumatic. Oral mucosa is pink and moist. EYES: Conjunctiva pink, sclera white, no periorbital swelling. CHEST: Normal to inspection and without deformities. CARDIOVASCULAR: S1 and S2 sounds normal. Regular rate and rhythm, no murmurs. RESPIRATORY: Normal respiratory rate, trachea midline, airway patent. No stridor, nasal flaring or accessory muscle use. Lungs are clear in all lau without wheeze, rhonchi, or crackles. GASTROINTESTINAL: Bowel sounds normoactive. Abdomen is soft and non-tender. No organomegaly. MUSCULOSKELETAL: 2+ pitting edema to feet bilaterally. Moderate anemia noted to lower legs, edema is nonpitting and lower legs. Several 0.5-1 cm lacerations noted to back of right leg and front of left leg, small amount of serosanguineous fluid discharge from lesions. No calf pain or tenderness. EXTREMITIES: Warm to touch. Pedal pulses 2+ and intact, equal bilaterally. SKIN: Warm, dry, soft, appropriate color for ethnicity. No lesions, rashes, or wounds. NEURO: Alert and Oriented X 3. Good coordination. No ataxia, or sensory deficits, or cognitive issues. PSYCH: Appropriate affect and mood. <Catia Torres DO - Last Filed: 08/10/19 19:16> Initial Vital Signs Initial Vital Signs: Vital Signs Temperature 98.0 F 08/09/19 12:48 Pulse Rate 109 H 08/09/19 12:48 Respiratory Rate 18 08/09/19 12:48 Blood Pressure 134/84 08/09/19 12:48 Pulse Oximetry 99 08/09/19 12:48 Course <BRYNN Winter - Last Filed: 08/09/19 19:34> Course Course Narrative: Patient remained hemodynamically stable that the emergency department stay. He was able to ambulate without feelings of dizziness, chest pain, shortness of breath. Orders Ordered: ED Orders 08/09/19 13:48 B Type Natriuretic Peptide Stat Complete Blood Count AUTO DIFF Stat Comprehensive Metabolic Panel Stat Troponin & CK Cardiac Panel Stat Consultations Consultation #1: Patient staffed with Dr. Torres. Vital Signs Vital signs: Vital Signs - 8 hr 08/09/19 12:48 08/09/19 12:50 08/09/19 13:30 Temperature 98.0 F Pulse Rate 109 H 109 H 111 H Respiratory Rate 18 25 H 18 Blood Pressure 134/84 Blood Pressure [Left Arm] 134/84 154/98 H Pulse Oximetry 99 100 97 08/09/19 14:40 08/09/19 15:53 Temperature Pulse Rate 110 H 106 H Respiratory Rate 19 25 H Blood Pressure Blood Pressure [Left Arm] 155/95 H 141/93 H Pulse Oximetry 97 97 <Catia Torres DO - Last Filed: 08/10/19 19:16> Orders Ordered: ED Orders 08/09/19 13:48 B Type Natriuretic Peptide Stat Complete Blood Count AUTO DIFF Stat Comprehensive Metabolic Panel Stat Troponin & CK Cardiac Panel Stat Vital Signs Vital signs: Vital Signs - 8 hr 08/09/19 12:48 08/09/19 12:50 08/09/19 13:30 Temperature 98.0 F Pulse Rate 109 H 109 H 111 H Respiratory Rate 18 25 H 18 Blood Pressure 134/84 Blood Pressure [Left Arm] 134/84 154/98 H Pulse Oximetry 99 100 97 08/09/19 14:40 08/09/19 15:53 Temperature Pulse Rate 110 H 106 H Respiratory Rate 19 25 H Blood Pressure Blood Pressure [Left Arm] 155/95 H 141/93 H Pulse Oximetry 97 97 MDM - Extremity (Nontraumatic) <BRYNN Winter - Last Filed: 08/09/19 19:34> Medical Records Attestation: I reviewed the patient's medical records. Lab Data Attestation: I reviewed the patient's lab results. Result diagrams: 08/09/19 13:48 08/09/19 13:48 Labs: Lab Results 08/09/19 08/09/19 08/09/19 Range/Units 13:48 13:48 13:48 WBC 7.0 (4.5-11.0) X10^3/uL RBC 3.04 L (4.5-5.9) X10^6/uL Hgb 9.6 L (13.5-17.5) g/dL Hct 28.1 L (41-53) % MCV 92.4 (80-100) fL MCH 31.6 (26-34) PG MCHC 34.2 (30-36) % RDW 14.6 (11.6-14.8) % Plt Count 105 L (150-400) X10^3/uL Neut % (Auto) 79.3 H (50-75) % Lymph % (Auto) 11.1 L (25-40) % [place] % (Auto) 7.7 (3-14) % Eos % (Auto) 1.0 L (2-4) % Baso % (Auto) 0.9 (0-2) % Neut # (Auto) 5500 (9531-3058) /uL Lymph # (Auto) 800 L (8353-7877) /uL [place] # (Auto) 500 (0-900) /uL Eos # (Auto) 100 (0-450) /uL Baso # (Auto) 100 (0-100) /uL Sodium 135 L (137-145) mmol/L Potassium 4.6 (3.4-5.1) mmol/L Chloride 99 (98-107) mmol/L Carbon Dioxide 28 (22-32) mmol/L BUN 26 H (9-20) mg/dL Creatinine 0.70 (0.66-1.25) mg/dL Estimated GFR > 60.0 (>60) mL/min BUN/Creatinine Ratio 37.1 H (6-22) Glucose 289 H (70-100) mg/dL Calcium 8.9 (8.4-10.2) mg/dL Total Bilirubin 0.2 (0.2-1.3) mg/dL AST 26 (17-59) IU/L ALT 25 (<50) IU/L Alkaline Phosphatase 103 (38-126) U/L Total Creatine Kinase 128 (55-170) U/L CK-MB (CK-2) 3.64 H (<2.37) ng/mL CK-MB (CK-2) Rel Index 2.8 (1.5-5.0) % Troponin I < 0.012 (0.01-0.034) ng/mL B-Natriuretic Peptide < 100 (<100) Total Protein 7.0 (6.3-8.2) g/dL Albumin 3.4 L (3.5-5.0) g/dL Globulin 3.6 (1.7-4.1) g/dL Albumin/Globulin Ratio 0.9 L (1.0-2.8) MDM Narrative Medical decision making narrative: This is a 49-year-old male with history of poorly-controlled diabetes presenting for bilateral lower leg swelling for the past week. Differential includes peripheral venous insufficiency (history of diabetes, negative BNP, lack of other symptoms) versus congestive heart failure (less likely due to negative BNP, lack of other symptoms such as shortness of breath, no history of CHF, mostly nonpitting edema in legs, normal troponin) versus medication induced edema (recently started carbon is a brain and gabapentin). Less likely DVT due to lack of calf pain and bilateral presentation of edema. Patient was encouraged to use compression stockings and or Rohan bandages, elevate feet, and follow up with his primary care provider in 1-2 weeks for further evaluations caution of medication management if needed. Patient was given ED return precautions for new or worsening symptoms. He agreed with plan of care and verbalized understanding. Patient also has increasing Anemia as indicated with decreasing hemoglobin and hematocrit, patient remains asymptomatic throughout the emergency department stay. He denies any increase in symptoms over the past few weeks. He was encouraged to follow up with his primary care provider for further testing and monitoring of his anemia. ED precautions given for new or worsening symptoms. <Catia Torres, DO - Last Filed: 08/10/19 19:16> Lab Data Labs: Lab Results 08/09/19 08/09/19 08/09/19 Range/Units 13:48 13:48 13:48 WBC 7.0 (4.5-11.0) X10^3/uL RBC 3.04 L (4.5-5.9) X10^6/uL Hgb 9.6 L (13.5-17.5) g/dL Hct 28.1 L (41-53) % MCV 92.4 (80-100) fL MCH 31.6 (26-34) PG MCHC 34.2 (30-36) % RDW 14.6 (11.6-14.8) % Plt Count 105 L (150-400) X10^3/uL Neut % (Auto) 79.3 H (50-75) % Lymph % (Auto) 11.1 L (25-40) % [place] % (Auto) 7.7 (3-14) % Eos % (Auto) 1.0 L (2-4) % Baso % (Auto) 0.9 (0-2) % Neut # (Auto) 5500 (4293-4652) /uL Lymph # (Auto) 800 L (3218-4614) /uL [place] # (Auto) 500 (0-900) /uL Eos # (Auto) 100 (0-450) /uL Baso # (Auto) 100 (0-100) /uL Sodium 135 L (137-145) mmol/L Potassium 4.6 (3.4-5.1) mmol/L Chloride 99 (98-107) mmol/L Carbon Dioxide 28 (22-32) mmol/L BUN 26 H (9-20) mg/dL Creatinine 0.70 (0.66-1.25) mg/dL Estimated GFR > 60.0 (>60) mL/min BUN/Creatinine Ratio 37.1 H (6-22) Glucose 289 H (70-100) mg/dL Calcium 8.9 (8.4-10.2) mg/dL Total Bilirubin 0.2 (0.2-1.3) mg/dL AST 26 (17-59) IU/L ALT 25 (<50) IU/L Alkaline Phosphatase 103 (38-126) U/L Total Creatine Kinase 128 (55-170) U/L CK-MB (CK-2) 3.64 H (<2.37) ng/mL CK-MB (CK-2) Rel Index 2.8 (1.5-5.0) % Troponin I < 0.012 (0.01-0.034) ng/mL B-Natriuretic Peptide < 100 (<100) Total Protein 7.0 (6.3-8.2) g/dL Albumin 3.4 L (3.5-5.0) g/dL Globulin 3.6 (1.7-4.1) g/dL Albumin/Globulin Ratio 0.9 L (1.0-2.8) Discharge Plan Departure Patient Disposition: Home Clinical Impression: Peripheral venous insufficiency Anemia Qualifiers: Anemia type: other cause Other causes of anemia: other cause, not classified Qualified Code(s): D64.89 - Other specified anemias Discharge Date/Time: 08/09/19 16:18 Instructions: Chronic Venous Insufficiency Activity Restrictions/Additional Instructions: Thank you for entrusting me with your care today. As discussed, it appears that the swelling of your legs may be due to venous insufficiency. It is possible that medication may contribute to this, I recommend following up with your primary care provider in the next few weeks for further evaluation of this. Additionally, it appears your hemoglobin and hematocrit are lower than previous tests. Please follow up with your primary care provider about this as well as you may need further testing. Return emergency department if you develop chest pain, dizziness, severe pain, uncontrollable vomiting, vision changes, or other concerns. Prescriptions: No Action (DME) insulin syringe-needle U-100 [BD Insulin Syringe] 1 mL 29 gauge x 1/2 syringe See Rx Instructions .ROUTE .MEDSUPPLY Qty: 300 RF: 3 atorvastatin 40 mg tablet 40 mg PO BEDTIME Qty: 90 RF: 3 gabapentin 300 mg capsule 300 mg PO TID Qty: 270 RF: 1 (DME) Glucometer Relion Qty: 1 RF: 0 (DME) PEN NEEDLES 32G Qty: 100 RF: 1 (DME) blood sugar diagnostic [Blood Glucose Test] strip See Dose Instructions .ROUTE .MEDSUPPLY Qty: 100 RF: 2 carbamazepine 200 mg tablet 200 mg PO BID Qty: 60 RF: 2 metformin 750 mg tablet extended release 24 hr 1,500 mg PO DAILY Qty: 180 RF: 0 aspirin 81 mg tablet,delayed release (DR/EC) 81 mg PO DAILY RF: 0 Insulin aspart SSI See Rx Instructions .ROUTE .COMPLEX RF: 0 (DME) GLUCOSE TEST STRIPS Qty: 100 RF: 5 ferrous sulfate [Feosol] 325 mg (65 mg iron) tablet 325 mg PO DAILY Qty: 30 RF: 0 Novolog U-100 Insulin aspart 100 unit/mL solution 10 unit subcut AC RF: 0 albuterol sulfate 90 mcg/actuation HFA aerosol inhaler 1 - 2 puff INHALATION Q4H PRN (Reason: Shortness Of Breath Or Wheezing) RF: 0 Lantus Solostar U-100 Insulin 100 unit/mL (3 mL) insulin pen 50 unit SUBCUT DAILY RF: 0 Referrals: Rashi Andrade MD [Primary Care Provider] -
[2019-08-09 13:30] VITALS: BP 154/98; PULSE 111; RESP 18; O2SAT 97
[2019-08-09 13:54] LABS: Add Manual Diff / Slide Review NO; Basophils Absolute Auto 100 /uL (0-100); Basophils Percent Auto 0.9 % (0-2); Eosinophils Absolute Auto 100 /uL (0-450); Hematocrit 28.1 % (41-53); Hemoglobin 9.6 g/dL (13.5-17.5); Lymphocytes Absolute Auto 800 /uL (1100-4500); Lymphocytes Percent Auto 11.1 % (25-40); Mean Corpuscular HGB Conc 34.2 % (30-36); Mean Corpuscular Hemoglobin 31.6 PG (26-34); Mean Corpuscular Volume 92.4 fL (80-100); Monocytes Absolute Auto 500 /uL (0-900); Monocytes Percent Auto 7.7 % (3-14); Neutrophils Absolute Auto 5500 /uL (1500-7000); Neutrophils Percent Auto 79.3 % (50-75); Platelet Count 105 X10^3/uL (150-400); Red Blood Cell Count 3.04 X10^6/uL (4.5-5.9); Red Cell Distribution Width 14.6 % (11.6-14.8)
[2019-08-09 14:07] LABS: Alanine Aminotransferase 25 IU/L (<50); Albumin 3.4 g/dL (3.5-5.0); Albumin Globulin Ratio 0.9 (1.0-2.8); Alkaline Phosphatase 103 U/L (38-126); Aspartate Aminotransferase 26 IU/L (17-59); BUN Creatinine Ratio 37.1 (6-22); Bilirubin Total 0.2 mg/dL (0.2-1.3); Blood Urea Nitrogen 26 mg/dL (9-20); Calcium 8.9 mg/dL (8.4-10.2); Carbon Dioxide 28 mmol/L (22-32); Chloride 99 mmol/L (98-107); Creatine Kinase 128 U/L (55-170); Estimated Glomerular Filt Rate > 60.0 mL/min (>60); Globulin 3.6 g/dL (1.7-4.1); Glucose 289 mg/dL (70-100); HEMOLYSIS < 15 (0-50); Potassium 4.6 mmol/L (3.4-5.1); Sodium 135 mmol/L (137-145)
[2019-08-09 14:19] LABS: Troponin I < 0.012 ng/mL (0.01-0.034)
[2019-08-09 14:23] LABS: CKMB % Relative Index 2.8 % (1.5-5.0); Creatine Kinase MB 3.64 ng/mL (<2.37)
[2019-08-09 14:40] VITALS: BP 155/95; PULSE 110; RESP 19; O2SAT 97
[2019-08-09 15:41] LABS: B Type Natriuretic Peptide < 100 (<100)
[2019-08-09 15:53] VITALS: BP 141/93; PULSE 106; RESP 25; O2SAT 97
== END 2019-08-09 16:18 | disposition home or self-care (01) ==
PROVIDERS: Emergency Provider Nurse Practitioner; PCP Student in an Organized Health Care Education/Training Program
DX: I87.2 Venous insufficiency (chronic) (peripheral) (principal); D64.9 Anemia, unspecified; E11.8 Type 2 diabetes mellitus with unspecified complications; Z79.4 Long term (current) use of insulin
CPT/HCPCS: 36415; 80053; 82550; 82553; 83880; 84484; 85025; 99282; 99283

== ENCOUNTER → 2019-08-11 10:52 | Outpatient (CLI) | payer OTHER, MEDICAID, SELFPAY ==
[2019-08-12 16:00] LABS: Carbamazepine Tegretol Level < 2.0 mg/L (4.0-12.0)
== END ==
PROVIDERS: PCP Student in an Organized Health Care Education/Training Program; Visit Provider Student in an Organized Health Care Education/Training Program
DX: Z79.899 Other long term (current) drug therapy (principal)
CPT/HCPCS: 36415; 80156

== ENCOUNTER → 2019-09-01 10:53 | Outpatient (CLI) | payer OTHER, MEDICAID, SELFPAY ==
[2019-09-01 11:42] LABS: Hematocrit 29.4 % (41-53); Hemoglobin 10.3 g/dL (13.5-17.5); Mean Corpuscular Hemoglobin 32.5 PG (26-34); Mean Corpuscular Volume 92.7 fL (80-100); Platelet Count 118 X10^3/uL (150-400); Red Blood Cell Count 3.17 X10^6/uL (4.5-5.9); Red Cell Distribution Width 14.4 % (11.6-14.8)
[2019-09-01 12:18] LABS: Blood Urea Nitrogen 43 mg/dL (9-20); Calcium 9.6 mg/dL (8.4-10.2); Carbon Dioxide 31 mmol/L (22-32); Chloride 97 mmol/L (98-107); Estimated Glomerular Filt Rate > 60.0 mL/min (>60); Glucose 162 mg/dL (70-100); HEMOLYSIS < 15 (0-50); Potassium 4.5 mmol/L (3.4-5.1); Sodium 138 mmol/L (137-145)
[2019-09-01 15:56] LABS: Creatinine Urine Random 156.5 mg/dL
[2019-09-01 16:16] LABS: Microalbumi Creatinin Ratio Ur 205.1 ug/mg CR (<30); Microalbumin Urine Random 32.1 mg/dL (0-1.6)
== END ==
PROVIDERS: PCP Student in an Organized Health Care Education/Training Program; Referring Provider Student in an Organized Health Care Education/Training Program; Visit Provider Student in an Organized Health Care Education/Training Program
DX: E11.21 Type 2 diabetes mellitus with diabetic nephropathy (principal); E11.59 Type 2 diabetes mellitus with other circulatory complications; I10 Essential (primary) hypertension; D64.9 Anemia, unspecified
CPT/HCPCS: 36415; 80048; 82043; 82570; 83036; 85027

== ENCOUNTER 2019-09-17 22:06 | Emergency (ER) | payer OTHER, MEDICAID, SELFPAY ==
[2019-09-17 22:13] VITALS: BP 85/54; PULSE 109; RESP 16; O2SAT 98
[2019-09-17 22:18] VITALS: BP 71/45; PULSE 109; RESP 20; TEMP 36.6; O2SAT 95
--- NOTE | 2019-09-17 22:22 | DI.RAD.S_ITS ---
PROCEDURE: XR CHEST 1V INDICATIONS: fall, right rib pain, syncope TECHNIQUE: One view of the chest was acquired. COMPARISON: [facility], CR, XR CHEST 2V, 05/18/2019, 19:00. FINDINGS: Surgical changes and devices: None. Lungs and pleura: Lungs are clear. No pleural effusions or pneumothorax. Mediastinum: Mediastinal contours appear normal. Heart size is normal. Bones and chest wall: No suspicious bony lesions. No displaced rib fracture identified. Overlying soft tissues appear unremarkable. IMPRESSION: 1. No acute cardiopulmonary disease. Dictated by: Nate Goodwin M.D. on 09/18/2019 at 6:06 Approved by: Nate Goodwin M.D. on 09/18/2019 at 6:10
--- NOTE | 2019-09-17 22:22 | DI.CT.S_ITS ---
PROCEDURE: CT HEAD/BRAIN WO CON INDICATIONS: syncope TECHNIQUE: Noncontrast 4.5 mm thick angled axial sections acquired from the foramen magnum to the vertex, with coronal and sagittal reformats. For radiation dose reduction, the following was used: automated exposure control, adjustment of mA and/or kV according to patient size. COMPARISON: [facility], CT, CT HEAD/BRAIN WO CON, 05/18/2019, 19:04. FINDINGS: Image quality: Diagnostic CSF spaces: Basal cisterns are patent. No extra-axial fluid collections. Ventricles are normal in size and shape. Brain: No intracranial hemorrhage, mass, or mass effect. Johnson-white matter interface is preserved. Skull and face: Calvarium and visualized facial bones are intact, without suspicious lesions. Sinuses: Visualized sinuses and mastoids are clear. IMPRESSION: 1. No acute intracranial abnormality. Dictated by: Nate Goodwin M.D. on 09/18/2019 at 5:50 Approved by: Nate Goodwin M.D. on 09/18/2019 at 5:53
--- NOTE | 2019-09-17 22:23 | ED.SYNCOPE ---
HPI - Syncope General Chief Complaint: Syncope Stated Complaint: FALL RIB PAIN Time Seen by Provider: 09/17/19 22:16 Source: patient and family Mode of arrival: Wheelchair Limitations: no limitations History of Present Illness HPI narrative: This is a 49-year-old male comes in with complaint of right rib pain patient states that he has syncopal episodes intermittently he had 1-2 days ago in the shower and fell on his right side and has since had rib pain on the right side. Patient denies any fevers or chills. He denies shortness of breath except for pain with deep inspiration. He states he sometimes feels nauseated but no vomiting. He denies any issues with bowel movements or urination. He states he has syncopal episodes intermittently he is following with his primary care and they are also considering seizures and he is on anti seizure medication. Patient has follow-up scheduled with Neurology. He does take an aspirin daily, cholesterol medication, anti seizure medication common iron pill and metformin daily. He denies any prior surgeries. Occasional tobacco denies any alcohol or illicit. He is accompanied by his daughter. He states he thinks he had another syncopal episode today was sitting on air mattress and fell into a laundry basket. He states today he also was diaphoretic continues to have his right-sided chest pain which has been continuous since his initial fall. Patient states his typical blood pressure is around 90. Related Data Home Medications Medication Instructions Recorded Confirmed Glucometer Relion #1 ea 05/21/19 08/13/19 aspirin 81 mg tablet,delayed 81 mg PO DAILY 07/27/19 08/13/19 release albuterol sulfate 1 - 2 puff INHALATION Q4H PRN 08/09/19 08/13/19 Insulin aspart SSI See Rx Instructions .ROUTE .COMPLEX 08/12/19 08/13/19 insulin aspart U-100 100 unit/mL 10 unit SUBCUT AC 08/12/19 08/13/19 subcutaneous solution insulin glargine 100 unit/mL (3 30 unit SUBCUT DAILY ml 08/12/19 08/13/19 mL) subcutaneous pen Previous Rx's Medication Instructions Recorded blood sugar diagnostic #100 each 06/02/18 atorvastatin 40 mg tablet 40 mg PO BEDTIME #90 tab 09/17/18 gabapentin 300 mg capsule 300 mg PO TID #270 cap 09/17/18 ferrous sulfate [Feosol] 325 mg PO DAILY #30 tab 05/18/19 PEN NEEDLES #100 each 05/21/19 metformin 750 mg tablet,extended 1,500 mg PO DAILY #180 tab 07/27/19 release 24 hr insulin syringe-needle U-100 1 mL #300 each 08/03/19 29 gauge x 1/2 GLUCOSE TEST STRIPS #100 each 08/13/19 carbamazepine 400 mg 400 mg PO BID #60 tab 08/13/19 tablet,extended release,12 hr Allergies Allergy/AdvReac Type Severity Reaction Status Date / Time No Known Drug Allergies Allergy Verified 08/13/19 13:13 Review of Systems Review of Systems ROS Unobtainable: All systems reviewed & are unremarkable except as noted in HPI and below Patient History Medical History Diabetic nephropathy (Chronic) Social History Smoking Status: Current some day smoker Smoking Status: Current some day smoker Substance Use Type: does not use Exam Narrative Exam Narrative: GEN: well nourished, well appearing male, alert and oriented x 3, patient appears to be in mild distress. Skin is mildly pale. HEENT: Atraumatic, pupils are equal round reactive to light, extraocular movements are intact, nares are clear, TMs are clear with no fluid, there is no conjunctival pallor. Throat is clear without any exudates, erythema, tonsillar enlargement or uvular deviation HEART: Regular rate and rhythm without murmur, clicks, rubs. No carotid bruits, pulses are equal in upper and lower extremities LUNGS:Lungs clear to auscultation, no wheezes, rales, crackles, chest moves symmetrically, no subcutaneous emphysema or crepitus, no tachypnea or accessory muscle use ABD:bowel sounds normal, soft, non-tender, no guarding, rebound, rigidity, no masses noted, no hepatosplenomegaly :No CVA tenderness BACK: No cervical, thoracic or lumbar vertebral point tenderness. Patient has normal range of motion. Patient's gait is not tested. Rectal exam is deferred. Muscle strength is 5/5 in lower extremities, DTRs are 2/4 and lower extremities. Dorsalis pedis and tibialis pulses are 2+ and lower extremities. Sensation is intact in the lower extremities. MSCL: Non-tender, no muscle atrophy, muscles strength 5/5 upper and lower extremities, full range of motion, normal gait NEURO:CN 2-12 intact, sensation normal. SKIN: No rash, erythema or ecchymosis. Initial Vital Signs Initial Vital Signs: Vital Signs Pulse Rate 109 H 09/17/19 22:13 Respiratory Rate 16 09/17/19 22:13 Blood Pressure 85/54 L 09/17/19 22:13 Pulse Oximetry 98 09/17/19 22:13 Course Orders Ordered: ED Orders 09/17/19 22:20 Complete Blood Count AUTO DIFF Stat Comprehensive Metabolic Panel Stat Ethanol (ETOH) Stat NT-proBNP (BNP-Adult 18+) Stat Prothrombin Time INR Stat Troponin & CK Cardiac Panel Stat 09/17/19 22:22 CT head/brain wo con Stat XR chest 1V Stat EKG-12 Lead Stat 09/17/19 22:23 Urinalysis and Microscopic Stat Urine Drug Screen, Rapid Stat 09/17/19 23:20 CT angio chest PE protocol Stat Discontinued Medications Sodium Chloride (Normal Saline 0.9%) 1,000 mls @ 1,000 mls/hr IV BOLUS ONE Stop: 09/17/19 23:21 Last Infusion: 09/18/19 00:01 Dose: 0 mls/hr Documented by: Admin: 09/17/19 22:29 Dose: 1,000 mls/hr Documented by: RODOLFO Sodium Chloride (Normal Saline 0.9%) 1,000 mls @ 1,000 mls/hr IV BOLUS ONE Stop: 09/18/19 00:25 Last Infusion: 09/18/19 00:41 Dose: 0 mls/hr Documented by: Admin: 09/18/19 00:21 Dose: 1,000 mls/hr Documented by: RODOLFO Vital Signs Vital signs: Vital Signs - 8 hr 09/17/19 22:13 09/17/19 22:18 09/17/19 22:38 Temperature 97.9 F Pulse Rate 109 H 109 H 103 H Respiratory Rate 16 20 16 Blood Pressure 71/45 L Blood Pressure [Right Arm] 85/54 L 109/73 Pulse Oximetry 98 95 97 09/17/19 23:00 09/17/19 23:30 09/18/19 00:52 Temperature Pulse Rate 101 H 103 H 100 H Respiratory Rate 19 14 18 Blood Pressure 144/78 H Blood Pressure [Right Arm] 117/75 116/74 Pulse Oximetry 97 97 99 MDM - Syncope Lab Data Attestation: I reviewed the patient's lab results. Result diagrams: 09/17/19 22:20 09/17/19 22:20 Labs: Lab Results 09/17/19 09/17/19 09/17/19 Range/Units 22:20 22:20 22:20 WBC 7.7 (4.5-11.0) X10^3/uL RBC 3.66 L (4.5-5.9) X10^6/uL Hgb 11.7 L (13.5-17.5) g/dL Hct 33.7 L (41-53) % MCV 92.2 (80-100) fL MCH 32.1 (26-34) PG MCHC 34.8 (30-36) % RDW 14.5 (11.6-14.8) % Plt Count 129 L (150-400) X10^3/uL Neut % (Auto) 58.2 (50-75) % Lymph % (Auto) 28.3 (25-40) % [place] % (Auto) 10.6 (3-14) % Eos % (Auto) 2.1 (2-4) % Baso % (Auto) 0.8 (0-2) % Neut # (Auto) 4500 (4859-7276) /uL Lymph # (Auto) 2200 (4863-3602) /uL [place] # (Auto) 800 (0-900) /uL Eos # (Auto) 200 (0-450) /uL Baso # (Auto) 100 (0-100) /uL PT 11.0 (10.1-12.7) SECONDS INR 1.0 (0.9-1.3) Sodium 139 (137-145) mmol/L Potassium 4.3 (3.4-5.1) mmol/L Chloride 101 (98-107) mmol/L Carbon Dioxide 26 (22-32) mmol/L BUN 30 H (9-20) mg/dL Creatinine 1.30 H (0.66-1.25) mg/dL Estimated GFR 59.2 L (>60) mL/min BUN/Creatinine Ratio 23.1 H (6-22) Glucose 241 H (70-100) mg/dL Calcium 9.3 (8.4-10.2) mg/dL Total Bilirubin 0.2 (0.2-1.3) mg/dL AST 23 (17-59) IU/L ALT 25 (<50) IU/L Alkaline Phosphatase 104 (38-126) U/L Total Creatine Kinase 94 (55-170) U/L CK-MB (CK-2) TNP CK-MB (CK-2) Rel Index TNP Troponin I < 0.012 (0.01-0.034) ng/mL NT-Pro-B Natriuret Pep 102 (<125) pg/mL Total Protein 7.7 (6.3-8.2) g/dL Albumin 3.9 (3.5-5.0) g/dL Globulin 3.8 (1.7-4.1) g/dL Albumin/Globulin Ratio 1.0 (1.0-2.8) Urine Color Urine Appearance Urine pH (4.5-8.0) Ur Specific [place] (1.000-1.035) Urine Protein (Negative) Urine Glucose (UA) (Negative) g/dL Urine Ketones (NEGATIVE) Urine Occult Blood (Negative) Urine Nitrate (Negative) Urine Bilirubin (NEGATIVE) Urine Urobilinogen (0.2) E.U./dL Ur Leukocyte Esterase (NEGATIVE) Urine RBC (0-5/HPF) Urine WBC (0-5/HPF) Urine Bacteria (None) Hyaline Casts (None) Urine Mucus (Negative) Ur Culture Indicated? U Opiates 300ng/mL cut (Negative) Ur Oxycodone Screen (Negative) Urine Methadone Screen (Negative) Ur Barbiturates Screen (Negative) U Tricyclic Antidepress (Negative) Ur Phencyclidine Scrn (Negative) Ur Amphetamines Screen (Negative) U Methamphetamines Scrn (Negative) Ur MDMA Scrn (Ecstasy) (Negative) U Benzodiazepines Scrn (Negative) Urine Cocaine Screen (Negative) U Marijuana (THC) Screen (Negative) Ethyl Alcohol ( - 10) mg/dL 09/17/19 09/18/19 09/18/19 Range/Units 22:20 00:15 00:15 WBC (4.5-11.0) X10^3/uL RBC (4.5-5.9) X10^6/uL Hgb (13.5-17.5) g/dL Hct (41-53) % MCV (80-100) fL MCH (26-34) PG MCHC (30-36) % RDW (11.6-14.8) % Plt Count (150-400) X10^3/uL Neut % (Auto) (50-75) % Lymph % (Auto) (25-40) % [place] % (Auto) (3-14) % Eos % (Auto) (2-4) % Baso % (Auto) (0-2) % Neut # (Auto) (2361-9880) /uL Lymph # (Auto) (7976-6717) /uL [place] # (Auto) (0-900) /uL Eos # (Auto) (0-450) /uL Baso # (Auto) (0-100) /uL PT (10.1-12.7) SECONDS INR (0.9-1.3) Sodium (137-145) mmol/L Potassium (3.4-5.1) mmol/L Chloride (98-107) mmol/L Carbon Dioxide (22-32) mmol/L BUN (9-20) mg/dL Creatinine (0.66-1.25) mg/dL Estimated GFR (>60) mL/min BUN/Creatinine Ratio (6-22) Glucose (70-100) mg/dL Calcium (8.4-10.2) mg/dL Total Bilirubin (0.2-1.3) mg/dL AST (17-59) IU/L ALT (<50) IU/L Alkaline Phosphatase (38-126) U/L Total Creatine Kinase (55-170) U/L CK-MB (CK-2) CK-MB (CK-2) Rel Index Troponin I (0.01-0.034) ng/mL NT-Pro-B Natriuret Pep (<125) pg/mL Total Protein (6.3-8.2) g/dL Albumin (3.5-5.0) g/dL Globulin (1.7-4.1) g/dL Albumin/Globulin Ratio (1.0-2.8) Urine Color Yellow Urine Appearance Clear Urine pH 5.0 (4.5-8.0) Ur Specific [place] 1.025 (1.000-1.035) Urine Protein 1+ H (Negative) Urine Glucose (UA) Trace H (Negative) g/dL Urine Ketones Negative (NEGATIVE) Urine Occult Blood Trace-lysed (Negative) Urine Nitrate Negative (Negative) Urine Bilirubin Negative (NEGATIVE) Urine Urobilinogen 0.2 (0.2) E.U./dL Ur Leukocyte Esterase Negative (NEGATIVE) Urine RBC 1-5/hpf (0-5/HPF) Urine WBC 0-1/hpf (0-5/HPF) Urine Bacteria None seen (None) Hyaline Casts 0-1/lpf (None) Urine Mucus 1+ H (Negative) Ur Culture Indicated? Cult not indicated U Opiates 300ng/mL cut Negative (Negative) Ur Oxycodone Screen Negative (Negative) Urine Methadone Screen Negative (Negative) Ur Barbiturates Screen Negative (Negative) U Tricyclic Antidepress Negative (Negative) Ur Phencyclidine Scrn Negative (Negative) Ur Amphetamines Screen Negative (Negative) U Methamphetamines Scrn Positive H (Negative) Ur MDMA Scrn (Ecstasy) Negative (Negative) U Benzodiazepines Scrn Negative (Negative) Urine Cocaine Screen Negative (Negative) U Marijuana (THC) Screen Negative (Negative) Ethyl Alcohol < 10 ( - 10) mg/dL Point of Care Testing Glucose POC 236 Imaging Data Chest x-ray: My Impression: Chest x-ray normal mediastinum, no free air, no pneumothorax noted but possible air in the soft tissue although not adjacent to the ribs. CT scan - head: Radiologist's Impression: Prelim read is no acute intracranial abnormality. Age-appropriate exam. angio pe: Radiologist's Impression: neagtive for PE. Thoracic aorta normal caliber without dissection. Patchy groundglass and reticulonodular infiltrates right upper lobe reflect atypical pneumonitis or bronchiolitis. Diffusely dilated esophagus may be secondary to reflex or distal obstructive lesion. ECG Data Attestation: I personally reviewed and interpreted this ECG as follows: Prior ECG tracings: available for review Interpretation: Sinus tachycardia rate of 101 FL 172 QRS of 90 and QTC of [address] elevation depression. EKG appears similar to 05/18/2019. [facility] Narrative Medical decision making narrative: Patient comes in for syncopal episode, head CT and chest x-ray showed no acute changes, patient has chronic anemia which has now worsened with low platelets which also have no worsened. No leukocytosis or or leukopenia. Coags are normal with normal electrolytes renal function creatinine is 1.3 with a BUN of 30 looks like his baseline is closer to 1.7, glucose is 241, troponin is negative with otherwise normal labs and patient has EKG that shows sinus tachycardia what appears similar to priors. With multiple syncopal episodes there was concern for possible PE and CT was negative there was some patchy ground-glass infiltrates it could be an pneumonitis or bronchiolitis although patient has not had any coughing or breathing symptoms and a dilated esophagus. Urinalysis did not show any infection but toxicology shows positive methamphetamines patient is not taking any medications that should cause him to be positive. He denies any ingestions. Patient had 2 L of fluid he is feeling much better his tachycardia to return home. He has follow-up already scheduled for these episodes. Discharge Plan Departure Patient Disposition: Home Clinical Impression: Syncope Qualifiers: Encounter type: initial encounter Discharge Date/Time: 09/18/19 00:53 Instructions: DI for Syncope in Adults (Fainting) Activity Restrictions/Additional Instructions: Follow-up with primary care in the next week for recheck. Call Friday for an appointment. You do need to have your renal function rechecked is it is slightly elevated today in comparison to your priors. Make sure you are drinking plenty of fluids. Continue home medications as prescribed. Return to the ER for new or recurrent symptoms, severe headaches, new neck pain, new chest pain or shortness of breath, persistent vomiting, swelling in her extremities or other new or concerning symptoms. Prescriptions: No Action (DME) insulin syringe-needle U-100 [BD Insulin Syringe] 1 mL 29 gauge x 1/2 syringe See Rx Instructions .ROUTE .MEDSUPPLY Qty: 300 RF: 3 Novolog U-100 Insulin aspart 100 unit/mL solution 10 unit subcut AC RF: 0 Insulin aspart SSI See Rx Instructions .ROUTE .COMPLEX RF: 0 Lantus Solostar U-100 Insulin 100 unit/mL (3 mL) insulin pen 30 unit SUBCUT DAILY RF: 0 atorvastatin 40 mg tablet 40 mg PO BEDTIME Qty: 90 RF: 3 gabapentin 300 mg capsule 300 mg PO TID Qty: 270 RF: 1 (DME) Glucometer Relion Qty: 1 RF: 0 (DME) PEN NEEDLES 32G Qty: 100 RF: 1 carbamazepine [Tegretol XR] 400 mg tablet extended release 12 hr 400 mg PO BID Qty: 60 RF: 1 (DME) GLUCOSE TEST STRIPS Qty: 100 RF: 5 (DME) blood sugar diagnostic [Blood Glucose Test] strip See Dose Instructions .ROUTE .MEDSUPPLY Qty: 100 RF: 2 metformin 750 mg tablet extended release 24 hr 1,500 mg PO DAILY Qty: 180 RF: 0 aspirin 81 mg tablet,delayed release (DR/EC) 81 mg PO DAILY RF: 0 ferrous sulfate [Feosol] 325 mg (65 mg iron) tablet 325 mg PO DAILY Qty: 30 RF: 0 albuterol sulfate 90 mcg/actuation HFA aerosol inhaler 1 - 2 puff INHALATION Q4H PRN (Reason: Shortness Of Breath Or Wheezing) RF: 0 Referrals: Rashi Andrade MD [Primary Care Provider] -
--- NOTE | 2019-09-17 22:26 | PC.NURSE ---
Patient arrives to department diaphoretic and low BP. Patient alert and oriented. Upright in wheelchair. Denies black or bloody stools. Normal urine output. Patient scheduled to have neurology consult for seizure disorder.
[2019-09-17] MEDS: SODIUM CHLORIDE 0.9% 1,000 ML 1000 ML IV (22:29)
[2019-09-17 22:38] VITALS: BP 109/73; PULSE 103; RESP 16; O2SAT 97
[2019-09-17 22:41] LABS: Ethanol (ETOH) < 10 mg/dL
[2019-09-17 22:42] LABS: Add Manual Diff / Slide Review NO; Alanine Aminotransferase 25 IU/L (<50); Albumin 3.9 g/dL (3.5-5.0); Alkaline Phosphatase 104 U/L (38-126); Aspartate Aminotransferase 23 IU/L (17-59); BUN Creatinine Ratio 23.1 (6-22); Basophils Absolute Auto 100 /uL (0-100); Basophils Percent Auto 0.8 % (0-2); Bilirubin Total 0.2 mg/dL (0.2-1.3); Blood Urea Nitrogen 30 mg/dL (9-20); Calcium 9.3 mg/dL (8.4-10.2); Carbon Dioxide 26 mmol/L (22-32); Chloride 101 mmol/L (98-107); Creatine Kinase 94 U/L (55-170); Eosinophils Absolute Auto 200 /uL (0-450); Eosinophils Percent Auto 2.1 % (2-4); Estimated Glomerular Filt Rate 59.2 mL/min (>60); Globulin 3.8 g/dL (1.7-4.1); Glucose 241 mg/dL (70-100); HEMOLYSIS < 15 (0-50); Hematocrit 33.7 % (41-53); Hemoglobin 11.7 g/dL (13.5-17.5); Lymphocytes Absolute Auto 2200 /uL (1100-4500); Lymphocytes Percent Auto 28.3 % (25-40); Mean Corpuscular HGB Conc 34.8 % (30-36); Mean Corpuscular Hemoglobin 32.1 PG (26-34); Mean Corpuscular Volume 92.2 fL (80-100); Monocytes Absolute Auto 800 /uL (0-900); Monocytes Percent Auto 10.6 % (3-14); Neutrophils Absolute Auto 4500 /uL (1500-7000); Neutrophils Percent Auto 58.2 % (50-75); Platelet Count 129 X10^3/uL (150-400); Potassium 4.3 mmol/L (3.4-5.1); Red Blood Cell Count 3.66 X10^6/uL (4.5-5.9); Red Cell Distribution Width 14.5 % (11.6-14.8); Sodium 139 mmol/L (137-145); Total Protein 7.7 g/dL (6.3-8.2); White Blood Cell Count 7.7 X10^3/uL (4.5-11.0)
[2019-09-17 22:54] LABS: NT-proBNP (BNP-Adult 18+) 102 pg/mL (<125); Troponin I < 0.012 ng/mL (0.01-0.034)
[2019-09-17 23:00] VITALS: BP 117/75; PULSE 101; RESP 19; O2SAT 97
--- NOTE | 2019-09-17 23:20 | DI.CT.S_ITS ---
PROCEDURE: CT ANGIO CHEST PE PROTOCOL INDICATIONS: recurrent syncope, rib pain TECHNIQUE: After the administration of intravenous contrast, 2 mm thick sections acquired from the pulmonary apices to the posterior costophrenic angles. 3-dimensional maximum intensity projection (MIP) coronal and sagittal reformats were then acquired through the thorax. For radiation dose reduction, the following was used: automated exposure control, adjustment of mA and/or kV according to patient size. COMPARISON: [facility], CR, XR CHEST 1V, 09/17/2019, 22:17. FINDINGS: Image quality: Excellent. Pulmonary arteries: Pulmonary arteries are normal in size, and demonstrate no intraluminal filling defects to suggest central pulmonary embolism. Lungs and pleura: There are patchy areas of small clustered nodules with areas of confluent groundglass opacity predominantly within the right upper lobe. Findings are compatible with a nonspecific infectious or inflammatory process with an endobronchial distribution. Within the right lower lobe, there is a small region of mucous plugging. Mild bronchial wall thickening is also demonstrated with a right-sided predominance and most prominent along the bronchus intermedius. There are dependent filling defects within the trachea and right mainstem bronchus compatible with mucus. The findings are suggestive of aspiration. No pleural effusions or pneumothorax. Mediastinum: Heart size is normal, without pericardial effusion. No mediastinal or hilar adenopathy. Thoracic aorta is normal in caliber and enhancement. The visualized aorta demonstrates no intimal flaps to suggest dissection. There is mild diffuse distention of the esophagus with intraluminal fluid debris levels. Mild concentric wall thickening is demonstrated in the distal esophagus. Bones and chest wall: No suspicious bony lesions. Ribs and thoracic spine appear intact throughout. Thyroid gland demonstrates no discrete nodules. No axillary or supraclavicular adenopathy. Abdomen: Visualized upper abdominal solid organs appear normal in the early arterial phase of enhancement. IMPRESSION: 1. No evidence of pulmonary embolism. 2. No evidence of aortic dissection in the thoracic aorta. 3. Patchy areas of clustered small nodules and groundglass opacities in the right upper lobe consistent with an infectious or inflammatory process with an endobronchial distribution. This includes possible sequelae of aspiration. 4. Dependent mucus within the trachea and right mainstem bronchus, mucus plugging in the right lower lobe bronchus, and bronchial wall thickening with a right-sided predominance are suggestive of aspiration. 5. Mild esophageal distention with mild wall thickening distally. The findings may reflect sequelae of gastroesophageal reflux or sequelae of a stricture, likely inflammatory and stricture but a malignant stricture cannot be fully excluded. Consider correlation with endoscopy. Dictated by: Nate Goodwin M.D. on 09/18/2019 at 5:53 Approved by: Nate Goodwin M.D. on 09/18/2019 at 6:05
[2019-09-17 23:30] VITALS: BP 116/74; PULSE 103; RESP 14; O2SAT 97
[2019-09-18] MEDS: SODIUM CHLORIDE 0.9% 1,000 ML 1000 ML IV (00:21)
[2019-09-18 00:23] LABS: Bacteria Urine None Seen
[2019-09-18 00:28] LABS: Appearance Urine UA CLEAR; Bilirubin Urine UA NEGATIVE (NEGATIVE); Color Urine UA YELLOW; Glucose Urine UA TRACE g/dL (Negative); Ketones Urine UA NEGATIVE (NEGATIVE); Leukocyte Esterase Urine UA NEGATIVE (NEGATIVE); Nitrite Urine UA NEGATIVE (Negative); Occult Blood Urine UA TRACE-LYSED (Negative); Protein Urine UA 1+ (Negative); Specific Gravity Urine UA 1.025 (1.000-1.035); Urobilinogen Urine UA 0.2 E.U./dL (0.2)
[2019-09-18 00:35] LABS: Ur Creatinine 50 (Normal); Ur Specific Gravity 1.025 (Normal)
[2019-09-18 00:36] LABS: UR Morphine/Opiate cutoff 300 Negative (Negative); Urine Amphetamines Negative (Negative); Urine Barbiturates Negative (Negative); Urine Benzodiazepines Negative (Negative); Urine Cocaine Negative (Negative); Urine MDMA Negative (Negative); Urine Methadone Negative (Negative); Urine Methamphetamines Positive (Negative); Urine Oxycodone Negative (Negative); Urine Phencyclidine Negative (Negative); Urine Tetrahydrocannabinol Negative (Negative); Urine Tricyclic Antidepressant Negative (Negative); Urine pH 5 (Normal)
[2019-09-18 00:52] VITALS: BP 144/78; PULSE 100; RESP 18; O2SAT 99
[2019-09-18 00:56] LABS: RBC Urine 1-5/HPF (0-5/HPF); WBC Urine 0-1/HPF (0-5/HPF)
[2019-09-18 00:57] LABS: Hyaline Casts Urine 0-1/LPF; Mucus Urine 1+ (Negative)
[2019-09-18 00:58] LABS: Culture Indicated Urine Cult Not Indicated
== END 2019-09-18 00:53 | disposition home or self-care (01) ==
PROVIDERS: Emergency Provider Emergency Medicine; PCP Student in an Organized Health Care Education/Training Program
DX: R55 Syncope and collapse (principal); R07.81 Pleurodynia; R00.0 Tachycardia, unspecified; D64.9 Anemia, unspecified; R07.9 Chest pain, unspecified; W19.XXXA Unspecified fall, initial encounter; E11.21 Type 2 diabetes mellitus with diabetic nephropathy
CPT/HCPCS: 36415; 70450; 71045; 71275; 80053; 80305; 80320; 81001; 82550; 82962; 83880; 84484; 85025; 85610; 93005; 96360; 96361; 99284; Q9967

== ENCOUNTER → 2019-09-29 08:31 | Outpatient (CLI) | payer OTHER, MEDICAID, SELFPAY ==
[2019-09-29 09:48] LABS: Hemoglobin A1C% w Est Avg Glu 8.7 % (4.0-6.0)
[2019-09-29 10:03] LABS: BUN Creatinine Ratio 35.2 (6-22); Blood Urea Nitrogen 38 mg/dL (9-20); Calcium 9.3 mg/dL (8.4-10.2); Carbon Dioxide 30 mmol/L (22-32); Chloride 98 mmol/L (98-107); Estimated Glomerular Filt Rate > 60.0 mL/min (>60); Glucose 274 mg/dL (70-100); HEMOLYSIS < 15 (0-50); Potassium 4.4 mmol/L (3.4-5.1); Sodium 136 mmol/L (137-145)
[2019-09-29 10:29] LABS: Cortisol AM (Before 10AM) 12.1 ug/dL (4.46-22.7)
[2019-10-06 09:00] LABS: Aldosterone/Renin Activity Rat 3.4 (0.0-30.0); Plama Renin, LC/MS/MS 0.466 ng/mL/hr (0.167-5.380)
== END ==
PROVIDERS: PCP Student in an Organized Health Care Education/Training Program; Referring Provider Student in an Organized Health Care Education/Training Program; Visit Provider Student in an Organized Health Care Education/Training Program
DX: G62.9 Polyneuropathy, unspecified (principal); R55 Syncope and collapse; E11.9 Type 2 diabetes mellitus without complications
CPT/HCPCS: 36415; 80048; 82088; 82533; 83036; 84244

== ENCOUNTER → 2019-09-30 07:20 | Outpatient (CLI) | payer OTHER, MEDICAID, SELFPAY ==
--- NOTE | 2019-09-30 | DI.MRI.S_ITS ---
PROCEDURE: MR HEAD/BRAIN WO/W CON INDICATIONS: Unspecified convulsions TECHNIQUE: Noncontrast axial T1 spin echo, axial T2 fast spin echo, sagittal and axial FLAIR, axial gradient echo, axial diffusion and ADC, coronal thin-slice T2 FSE through the brain. Optional contrast, followed by axial and coronal 3D VIBE or T1 spin echo with fat saturation sequences through the brain. COMPARISON: [facility], CT, CT HEAD/BRAIN WO CON, 09/17/2019, 22:24. FINDINGS: Image quality: Excellent. CSF spaces: Ventricles are normal in size and shape. Basal cisterns are patent. No extra-axial fluid collections. Brain: No intracranial bleeds or mass effects. No abnormal intracranial enhancement. Johnson-white matter interface appears intact. Diffusion weighted images demonstrate no acute ischemic insults. Brainstem appear normal. Normal intravascular flow voids are present. The hippocampal regions appear normal and symmetric in morphology. Skull and face: Calvarial marrow signal is normal. Orbits appear normal. Sinuses: Sinuses and mastoids are clear. IMPRESSION: Normal for age, source of reported seizure activity is not seen. Dictated by: Parth Ortiz M.D. on 09/30/2019 at 8:46 Approved by: Parth Ortiz M.D. on 09/30/2019 at 8:47
== END ==
PROVIDERS: PCP Student in an Organized Health Care Education/Training Program; Referring Provider Specialist; Visit Provider Specialist
DX: R56.9 Unspecified convulsions (principal)
CPT/HCPCS: 70553

== ENCOUNTER → 2019-11-02 10:14 | Outpatient (CLI) | payer OTHER, MEDICAID, SELFPAY ==
[2019-11-02 11:12] LABS: Erythrocyte Sedimentation Rate 64 MM/HR (0-15)
[2019-11-02 11:36] LABS: Free T4, Direct Thyroxine 0.87 ng/dL (0.78-2.19)
[2019-11-02 11:50] LABS: Thyroid Stimulating Hormone 5.01 uIU/mL (0.47-4.68)
[2019-11-03 16:36] LABS: Anti Thyroglobulin Antibody <1.0 IU/mL (0.0-0.9); Thyroid Peroxidase Antibodies <9 IU/mL (0-34)
== END ==
PROVIDERS: PCP Student in an Organized Health Care Education/Training Program; Referring Provider Student in an Organized Health Care Education/Training Program; Visit Provider Student in an Organized Health Care Education/Training Program
DX: E03.9 Hypothyroidism, unspecified (principal); G62.9 Polyneuropathy, unspecified
CPT/HCPCS: 36415; 84439; 84443; 84481; 85651; 86140; 86376; 86800

== ENCOUNTER → 2019-12-27 13:50 | Outpatient (CLI) | payer OTHER, MEDICAID, SELFPAY ==
[2019-12-27 15:33] LABS: Add Manual Diff / Slide Review NO; Basophils Absolute Auto 100 /uL (0-100); Eosinophils Absolute Auto 100 /uL (0-450); Eosinophils Percent Auto 2.5 % (2-4); Hematocrit 29.2 % (41-53); Hemoglobin 10.2 g/dL (13.5-17.5); Lymphocytes Absolute Auto 1400 /uL (1100-4500); Lymphocytes Percent Auto 24.6 % (25-40); Mean Corpuscular HGB Conc 34.8 % (30-36); Mean Corpuscular Hemoglobin 32.5 PG (26-34); Mean Corpuscular Volume 93.5 fL (80-100); Monocytes Absolute Auto 400 /uL (0-900); Monocytes Percent Auto 7.3 % (3-14); Neutrophils Absolute Auto 3600 /uL (1500-7000); Neutrophils Percent Auto 64.6 % (50-75); Platelet Count 147 X10^3/uL (150-400); Red Blood Cell Count 3.12 X10^6/uL (4.5-5.9); Red Cell Distribution Width 14.2 % (11.6-14.8); White Blood Cell Count 5.6 X10^3/uL (4.5-11.0)
[2019-12-27 15:33] LABS: BUN Creatinine Ratio 26.7 (6-22); Blood Urea Nitrogen 23 mg/dL (9-20); Estimated Glomerular Filt Rate > 60.0 mL/min (>60)
[2019-12-27 15:35] LABS: Alanine Aminotransferase 33 IU/L (<50); Albumin 4.1 g/dL (3.5-5.0); Alkaline Phosphatase 131 U/L (38-126); Aspartate Aminotransferase 35 IU/L (17-59); Bilirubin Total 0.3 mg/dL (0.2-1.3); Bilirubin Unconjugated 0.3 mg/dL (0.0-1.1); HEMOLYSIS < 15 (0-50); Sodium 137 mmol/L (137-145); Total Protein 8.1 g/dL (6.3-8.2)
[2019-12-28 01:38] LABS: Carbamazepine Tegretol Level 7.7 ug/mL (4.0-12.0)
== END ==
PROVIDERS: PCP Student in an Organized Health Care Education/Training Program; Referring Provider Specialist; Visit Provider Specialist
DX: R56.9 Unspecified convulsions (principal); E11.21 Type 2 diabetes mellitus with diabetic nephropathy
CPT/HCPCS: 36415; 80076; 80156; 82565; 83036; 84295; 84520; 85025

== ENCOUNTER → 2020-01-19 13:41 | Outpatient (CLI) | payer OTHER, MEDICAID, SELFPAY ==
[2020-01-19 14:16] LABS: Add Manual Diff / Slide Review NO; Basophils Absolute Auto 100 /uL (0-100); Basophils Percent Auto 1.5 % (0-2); Eosinophils Absolute Auto 200 /uL (0-450); Hematocrit 31.9 % (41-53); Lymphocytes Absolute Auto 1400 /uL (1100-4500); Mean Corpuscular HGB Conc 34.4 % (30-36); Mean Corpuscular Hemoglobin 32.6 PG (26-34); Mean Corpuscular Volume 94.6 fL (80-100); Monocytes Absolute Auto 600 /uL (0-900); Neutrophils Absolute Auto 1500 /uL (1500-7000); Neutrophils Percent Auto 38.5 % (50-75); Platelet Count 95 X10^3/uL (150-400); Red Blood Cell Count 3.37 X10^6/uL (4.5-5.9); Red Cell Distribution Width 13.8 % (11.6-14.8); White Blood Cell Count 3.8 X10^3/uL (4.5-11.0)
[2020-01-19 14:47] LABS: Alanine Aminotransferase 35 IU/L (<50); Albumin 3.9 g/dL (3.5-5.0); Albumin Globulin Ratio 1.2 (1.0-2.8); Alkaline Phosphatase 112 U/L (38-126); Aspartate Aminotransferase 32 IU/L (17-59); Bilirubin Total 0.3 mg/dL (0.2-1.3); Bilirubin Unconjugated 0.2 mg/dL (0.0-1.1); Globulin 3.2 g/dL (1.7-4.1); HEMOLYSIS < 15 (0-50); Sodium 135 mmol/L (137-145); Total Protein 7.1 g/dL (6.3-8.2)
[2020-01-20 05:12] LABS: Carbamazepine Tegretol Level 9.3 ug/mL (4.0-12.0)
== END ==
PROVIDERS: PCP Student in an Organized Health Care Education/Training Program; Referring Provider Specialist; Visit Provider Specialist
DX: R56.9 Unspecified convulsions (principal)
CPT/HCPCS: 36415; 80076; 80156; 84295; 85025

== ENCOUNTER → 2020-03-06 12:34 | Outpatient (CLI) | payer OTHER, MEDICAID, SELFPAY ==
[2020-03-06 13:42] LABS: BUN Creatinine Ratio 33.3 (6-22); Blood Urea Nitrogen 33 mg/dL (9-20); Cholesterol 176 mg/dL (140-199); Estimated Glomerular Filt Rate > 60.0 mL/min (>60); HDL Cholesterol 58 mg/dL (40-60); Hemoglobin A1C% w Est Avg Glu 6.9 % (4.0-6.0); LDL Cholesterol Calculated 93 mg/dL (<100); Triglycerides 124 mg/dL (35-150)
[2020-03-06 13:45] LABS: C-Reactive Protein Quant < 0.5 mg/dL (<1.0)
[2020-03-06 13:54] LABS: Erythrocyte Sedimentation Rate 36 MM/HR (0-15)
[2020-03-06 14:32] LABS: TSH w/ Reflex to FT4 3.67 uIU/mL (0.47-4.68)
== END ==
PROVIDERS: PCP Student in an Organized Health Care Education/Training Program; Referring Provider Student in an Organized Health Care Education/Training Program; Visit Provider Student in an Organized Health Care Education/Training Program
DX: E11.21 Type 2 diabetes mellitus with diabetic nephropathy (principal); E11.59 Type 2 diabetes mellitus with other circulatory complications; E11.69 Type 2 diabetes mellitus with other specified complication; E78.5 Hyperlipidemia, unspecified; I10 Essential (primary) hypertension; G62.9 Polyneuropathy, unspecified
CPT/HCPCS: 36415; 80061; 82565; 83036; 84443; 84520; 85651; 86140

== ENCOUNTER → 2020-06-29 12:10 | Outpatient (CLI) | payer OTHER, MEDICAID, SELFPAY ==
[2020-06-29 13:12] LABS: BUN Creatinine Ratio 23.4 (6-22); Blood Urea Nitrogen 26 mg/dL (9-20); Estimated Glomerular Filt Rate > 60.0 mL/min (>60)
[2020-06-29 13:41] LABS: Hemoglobin A1C% w Est Avg Glu 6.2 % (4.0-6.0)
== END ==
PROVIDERS: PCP Student in an Organized Health Care Education/Training Program; Referring Provider Student in an Organized Health Care Education/Training Program; Visit Provider Student in an Organized Health Care Education/Training Program
DX: E11.21 Type 2 diabetes mellitus with diabetic nephropathy (principal)
CPT/HCPCS: 36415; 82565; 83036; 84520

== ENCOUNTER → 2020-09-07 16:01 | Outpatient (CLI) | payer OTHER, MEDICAID, SELFPAY ==
[2020-09-07 17:07] LABS: Add Manual Diff / Slide Review NO; Basophils Absolute Auto 100 /uL (0-100); Basophils Percent Auto 1.3 % (0-2); Eosinophils Absolute Auto 300 /uL (0-450); Eosinophils Percent Auto 5.1 % (2-4); Hematocrit 30.9 % (41-53); Hemoglobin 10.9 g/dL (13.5-17.5); Lymphocytes Absolute Auto 1900 /uL (1100-4500); Lymphocytes Percent Auto 31.9 % (25-40); Mean Corpuscular HGB Conc 35.2 % (30-36); Mean Corpuscular Hemoglobin 32.4 PG (26-34); Mean Corpuscular Volume 91.9 fL (80-100); Monocytes Absolute Auto 500 /uL (0-900); Monocytes Percent Auto 7.7 % (3-14); Neutrophils Absolute Auto 3200 /uL (1500-7000); Platelet Count 96 X10^3/uL (150-400); Red Blood Cell Count 3.36 X10^6/uL (4.5-5.9); Red Cell Distribution Width 12.4 % (11.6-14.8); White Blood Cell Count 5.9 X10^3/uL (4.5-11.0)
[2020-09-07 17:33] LABS: Sodium 137 mmol/L (137-145)
[2020-09-08 07:36] LABS: Carbamazepine Tegretol Level 5.8 ug/mL (4.0-12.0)
== END ==
PROVIDERS: PCP Student in an Organized Health Care Education/Training Program; Referring Provider Specialist; Visit Provider Specialist
DX: G40.109 Localization-related (focal) (partial) symptomatic epilepsy and epileptic syndromes with simple partial seizures, not intractable, without status epilepticus (principal)
CPT/HCPCS: 36415; 80156; 84295; 85025

== ENCOUNTER → 2020-10-23 10:59 | Outpatient (CLI) | payer OTHER, MEDICAID, SELFPAY ==
[2020-10-25 14:12] LABS: Lamotrigine Lamictal <1.0 ug/mL (2.0-20.0)
== END ==
PROVIDERS: PCP Student in an Organized Health Care Education/Training Program; Referring Provider Specialist; Visit Provider Specialist
DX: G40.109 Localization-related (focal) (partial) symptomatic epilepsy and epileptic syndromes with simple partial seizures, not intractable, without status epilepticus (principal)
CPT/HCPCS: 36415; 80175

== ENCOUNTER → 2021-07-26 09:26 | Outpatient (CLI) | payer OTHER, MEDICAID, SELFPAY ==
[2021-07-26 10:44] LABS: BUN Creatinine Ratio 28.5 (6-22); Blood Urea Nitrogen 43 mg/dL (9-20); Calcium 9.5 mg/dL (8.4-10.2); Carbon Dioxide 29 mmol/L (22-32); Chloride 98 mmol/L (98-107); Estimated Glomerular Filt Rate 49.4 mL/min (>60); Glucose 234 mg/dL (70-100); HEMOLYSIS < 15 (0-50); Potassium 4.2 mmol/L (3.4-5.1); Sodium 131 mmol/L (137-145)
[2021-07-26 13:16] LABS: Creatinine Urine Random 91.2 mg/dL
[2021-07-26 13:56] LABS: Microalbumi Creatinin Ratio Ur 1922.1 ug/mg CR (<30); Microalbumin Urine Random 175.3 mg/dL (0-1.6)
[2021-07-27 07:38] LABS: Fructosamine 328 umol/L (0-285)
== END ==
PROVIDERS: PCP Student in an Organized Health Care Education/Training Program; Referring Provider Student in an Organized Health Care Education/Training Program; Visit Provider Student in an Organized Health Care Education/Training Program
DX: E11.59 Type 2 diabetes mellitus with other circulatory complications (principal); I10 Essential (primary) hypertension
CPT/HCPCS: 36415; 80048; 82043; 82570; 82985

== ENCOUNTER → 2022-01-29 15:35 | Outpatient (CLI) | payer OTHER, MEDICAID, SELFPAY ==
[2022-01-29 15:57] LABS: Add Manual Diff / Slide Review NO; Basophils Absolute Auto 100 /uL (0-100); Basophils Percent Auto 1.9 % (0-2); Eosinophils Absolute Auto 100 /uL (0-450); Eosinophils Percent Auto 2.1 % (2-4); Hematocrit 25.8 % (41-53); Hemoglobin 9.1 g/dL (13.5-17.5); Lymphocytes Absolute Auto 1200 /uL (1100-4500); Lymphocytes Percent Auto 22.8 % (25-40); Mean Corpuscular HGB Conc 35.1 % (30-36); Mean Corpuscular Hemoglobin 30.3 PG (26-34); Mean Corpuscular Volume 86.3 fL (80-100); Monocytes Absolute Auto 500 /uL (0-900); Monocytes Percent Auto 10.6 % (3-14); Neutrophils Absolute Auto 3200 /uL (1500-7000); Neutrophils Percent Auto 62.6 % (50-75); Platelet Count 141 X10^3/uL (150-400); Red Blood Cell Count 2.99 X10^6/uL (4.5-5.9); Red Cell Distribution Width 13.2 % (11.6-14.8); White Blood Cell Count 5.2 X10^3/uL (4.5-11.0)
[2022-01-29 16:11] LABS: Hemoglobin A1C% w Est Avg Glu > 14.0 % (4.0-6.0)
[2022-01-29 16:19] LABS: Alanine Aminotransferase 15 IU/L (<50); Albumin 2.6 g/dL (3.5-5.0); Albumin Globulin Ratio 0.8 (1.0-2.8); Alkaline Phosphatase 113 U/L (38-126); Aspartate Aminotransferase 24 IU/L (17-59); BUN Creatinine Ratio 26.7 (6-22); Bilirubin Total 0.4 mg/dL (0.2-1.3); Blood Urea Nitrogen 24 mg/dL (9-20); Calcium 7.8 mg/dL (8.4-10.2); Carbon Dioxide 30 mmol/L (22-32); Chloride 91 mmol/L (98-107); Cholesterol 248 mg/dL (140-199); Estimated Glomerular Filt Rate > 60 mL/min (>60); Globulin 3.2 g/dL (1.7-4.1); HDL Cholesterol 48 mg/dL (40-60); HEMOLYSIS < 15 (0-50); LDL Cholesterol Calculated 159 mg/dL (<100); Potassium 3.4 mmol/L (3.4-5.1); Sodium 125 mmol/L (137-145); Total Protein 5.8 g/dL (6.3-8.2); Triglycerides 204 mg/dL (35-150)
[2022-01-29 16:36] LABS: Glucose 669 mg/dL (70-100)
[2022-01-29 17:11] LABS: Iron 65 ug/dL (49-181)
[2022-01-29 17:12] LABS: Creatinine Urine Random 16.1 mg/dL
[2022-01-29 17:22] LABS: Percent Iron Saturation 28 % (20-50); Total Iron Binding Capacity 236 ug/dL (261-462); Transferrin 192 mg/dL (206-381)
[2022-01-29 17:28] LABS: Vitamin D 25 Hydroxy (D3) < 12.8 ng/mL (30.0-100.0)
[2022-01-29 17:54] LABS: Microalbumi Creatinin Ratio Ur 25838.5 ug/mg CR (<30)
[2022-01-29 19:38] LABS: HEMOLYSIS < 15 (0-50); TSH w/ Reflex to FT4 3.55 uIU/mL (0.47-4.68)
[2022-01-31 04:56] LABS: Vitamin B12 863 pg/mL (239-931)
== END ==
PROVIDERS: PCP Student in an Organized Health Care Education/Training Program; Referring Provider Student in an Organized Health Care Education/Training Program; Visit Provider Student in an Organized Health Care Education/Training Program
DX: E11.21 Type 2 diabetes mellitus with diabetic nephropathy (principal); F32.9 Major depressive disorder, single episode, unspecified; I10 Essential (primary) hypertension; E11.69 Type 2 diabetes mellitus with other specified complication; E55.9 Vitamin D deficiency, unspecified; E78.5 Hyperlipidemia, unspecified
CPT/HCPCS: 36415; 80053; 80061; 82043; 82306; 82570; 82607; 83036; 83540; 83550; 84443; 85025

== ENCOUNTER 2022-02-02 01:52 | Emergency (ER) | payer OTHER, MEDICAID, SELFPAY ==
[2022-02-02 02:00] VITALS: BP 177/95; PULSE 116; RESP 18; TEMP 36.6; O2SAT 97; BMI 23.1
--- NOTE | 2022-02-02 02:14 | ED_ITS ---
HPI - General Adult General Chief complaint: Weakness Stated complaint: whole body swollen Time Seen by Provider: 02/02/22 02:06 Source: patient Mode of arrival: Ambulatory Limitations: no limitations History of Present Illness HPI narrative: Patient is a 51-year-old male who is here for evaluation of swelling to his lower extremities and swelling to his abdomen and upper extremities. It has been going on for the past couple days and worsening for the past couple days. He is not having any chest pain. No fevers. No urinary symptoms. No change in bowel habits. 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 He is recently seen by his primary doctor. He does have insulin-dependent diabetes. He is not been compliant with any of his medications for some time now. He stated that he is ready to start back on his medicines and he has had discussions with the primary doctor with this. He has all the medications that he needs at home although he has not started them yet. He stated that he was going to start them on Friday because he states that it is easier for him to keep track of what he is taking when he starts things the beginning of the week. Related Data Home Medications Medication Instructions Recorded Confirmed Glucometer Relion #1 ea 05/21/19 05/31/21 aspirin 81 mg tablet,delayed 81 mg PO DAILY 07/27/19 05/31/21 release Insulin aspart SSI See Rx Instructions .Route .COMPLEX 08/12/19 05/31/21 Previous Rx's Medication Instructions Recorded blood sugar diagnostic (Blood #100 ea 06/02/18 Glucose Test strips) ferrous sulfate 325 mg (65 mg 325 mg PO DAILY anemia #30 tabs 05/18/19 iron) tablet (Feosol) PEN NEEDLES #100 ea 05/21/19 insulin syr/ndl U100 half damien 0.5 #300 ea 09/29/19 mL 31 gauge x 12/03 GLUCOSE TEST STRIPS #100 ea 03/21/20 albuterol sulfate 90 mcg/actuation 1 - 2 puff inhalation Q4H PRN 05/31/21 aerosol inhaler Shortness Of Breath Or Wheezing #8.5 grams atorvastatin 40 mg tablet 40 mg PO BEDTIME #90 tabs 05/31/21 insulin aspart U-100 100 unit/mL 10 unit (0.1 mL) SUBCUT AC #10 mL 05/31/21 subcutaneous solution (Novolog U-100 Insulin aspart) metformin 750 mg tablet,extended 1,500 mg PO DAILY #180 tabs 05/31/21 release 24 hr escitalopram oxalate 20 mg tablet 20 mg PO DAILY #90 tabs 07/27/21 bupropion HCl 150 mg 24 hr tablet, 150 mg PO QAM #30 tabs 01/31/22 extended release cholecalciferol (vitamin D3) 1,250 1,250 mcg PO QWEEK 3 months #12 01/31/22 mcg (50,000 unit) capsule caps Allergies Allergy/AdvReac Type Severity Reaction Status Date / Time No Known Drug Allergies Allergy Verified 05/31/21 16:07 Review of Systems Review of Systems ROS Unobtainable: All systems reviewed & are unremarkable except as noted in HPI and below Patient History Medical History Diabetic cataract of right eye Fracture of clavicle, left, closed Social History Smoking Status: Current some day smoker Smoking Status: Current some day smoker Substance Use Type: does not use Exam Initial Vital Signs Initial Vital Signs: Vital Signs Temperature 97.8 F 02/02/22 02:00 Pulse Rate 116 H 02/02/22 02:00 Respiratory Rate 18 02/02/22 02:00 Blood Pressure 177/95 H 02/02/22 02:00 Pulse Oximetry 97 02/02/22 02:00 Oxygen Delivery Method 02/02/22 02:00 HENWA Head: normal to inspection and normocephalic Resp Effort & Inspection: normal respiratory effort Auscultation: clear to auscultation bilaterally Cardio Rate: tachycardic Rhythm: regular rhythm GI Inspection: normal to inspection Palpation: soft Skin General: no rashes or lesions noted Neuro General: patient alert, patient awake and moves all extremities Extrem General: edema (Bilateral lower extremities and forearms of upper extremities) Psych Appearance: grossly normal and well kempt Course Orders Ordered: ED Orders 02/02/22 02:10 BNP [NT-proBNP (BNP-Adult 18+)] Stat Complete Blood Count AUTO DIFF Stat Comprehensive Metabolic Panel Stat Lipase Stat Magnesium Stat Phosphorous Stat Thyroid Stimulating Hormone Stat 07/16/22 03:21 Urine Microscopic Stat Discontinued Medications Sodium Chloride (Normal Saline 0.9%) 1,000 mls @ 1,000 mls/hr IV BOLUS ONE Stop: 02/02/22 03:47 Last Admin: 02/02/22 03:25 Dose: 1,000 mls/hr Documented By: MAREK Vital Signs Vital signs: Vital Signs - 8 hr 02/02/22 02:00 Temperature 97.8 F Pulse Rate 116 H Respiratory Rate 18 Blood Pressure 177/95 H Pulse Oximetry 97 Oxygen Delivery Method Room Air Medical Decision Making Lab Data Lab results reviewed: Yes I reviewed the patient's lab results. Result diagrams: 02/02/22 02:10 02/02/22 02:10 Labs: Lab Results 02/02/22 02/02/22 02/02/22 Range/Units 02:10 02:10 02:10 WBC 5.0 (4.5-11.0) X10^3/uL RBC 3.33 L (4.5-5.9) X10^6/uL Hgb 10.0 L (13.5-17.5) g/dL Hct 29.5 L (41-53) % MCV 88.5 (80-100) fL MCH 30.0 (26-34) PG MCHC 33.9 (30-36) % RDW 13.4 (11.6-14.8) % Plt Count 143 L (150-400) X10^3/uL Neut % (Auto) 61.3 (50-75) % Lymph % (Auto) 26.1 (25-40) % [place] % (Auto) 9.2 (3-14) % Eos % (Auto) 2.2 (2-4) % Baso % (Auto) 1.2 (0-2) % Neut # (Auto) 3100 (9377-3193) /uL Lymph # (Auto) 1300 (1085-6931) /uL [place] # (Auto) 500 (0-900) /uL Eos # (Auto) 100 (0-450) /uL Baso # (Auto) 100 (0-100) /uL Sodium 126 L (137-145) mmol/L Potassium 3.3 L (3.4-5.1) mmol/L Chloride 88 L (98-107) mmol/L Carbon Dioxide 32 (22-32) mmol/L BUN 20 (9-20) mg/dL Creatinine 1.22 (0.66-1.25) mg/dL Estimated GFR > 60 (>60) mL/min BUN/Creatinine Ratio 16.4 (6-22) Glucose 719 H* (70-100) mg/dL Calcium 8.6 (8.4-10.2) mg/dL Phosphorus 4.8 H (2.5-4.5) mg/dL Magnesium 1.8 (1.6-2.3) mg/dL Total Bilirubin 0.6 (0.2-1.3) mg/dL AST 32 (17-59) IU/L ALT 23 (<50) IU/L Alkaline Phosphatase 128 H (38-126) U/L NT-Pro-B Natriuret Pep (<125) pg/mL Total Protein 6.4 (6.3-8.2) g/dL Albumin 3.0 L (3.5-5.0) g/dL Globulin 3.4 (1.7-4.1) g/dL Albumin/Globulin Ratio 0.9 L (1.0-2.8) Lipase 111 (23-300) U/L TSH 4.25 (0.47-4.68) uIU/mL Urine RBC (0-5/HPF) Urine WBC (0-5/HPF) Urine Bacteria (None) Ur Culture Indicated? 02/02/22 02/02/22 Range/Units 02:10 03:21 WBC (4.5-11.0) X10^3/uL RBC (4.5-5.9) X10^6/uL Hgb (13.5-17.5) g/dL Hct (41-53) % MCV (80-100) fL MCH (26-34) PG MCHC (30-36) % RDW (11.6-14.8) % Plt Count (150-400) X10^3/uL Neut % (Auto) (50-75) % Lymph % (Auto) (25-40) % [place] % (Auto) (3-14) % Eos % (Auto) (2-4) % Baso % (Auto) (0-2) % Neut # (Auto) (1209-3107) /uL Lymph # (Auto) (9813-3628) /uL [place]enson # (Auto) (0-900) /uL Eos # (Auto) (0-450) /uL Baso # (Auto) (0-100) /uL Sodium (137-145) mmol/L Potassium (3.4-5.1) mmol/L Chloride (98-107) mmol/L Carbon Dioxide (22-32) mmol/L BUN (9-20) mg/dL Creatinine (0.66-1.25) mg/dL Estimated GFR (>60) mL/min BUN/Creatinine Ratio (6-22) Glucose (70-100) mg/dL Calcium (8.4-10.2) mg/dL Phosphorus (2.5-4.5) mg/dL Magnesium (1.6-2.3) mg/dL Total Bilirubin (0.2-1.3) mg/dL AST (17-59) IU/L ALT (<50) IU/L Alkaline Phosphatase (38-126) U/L NT-Pro-B Natriuret Pep 637 H (<125) pg/mL Total Protein (6.3-8.2) g/dL Albumin (3.5-5.0) g/dL Globulin (1.7-4.1) g/dL Albumin/Globulin Ratio (1.0-2.8) Lipase (23-300) U/L TSH (0.47-4.68) uIU/mL Urine RBC 1-5/hpf (0-5/HPF) Urine WBC 0-1/hpf (0-5/HPF) Urine Bacteria None seen (None) Ur Culture Indicated? Cult not indicated Urine Dip Bedside Urine Glucose 1000 mg/dl Bedside Urine Bilirubin - Negative Bedside Urine Ketone - Negative Urine Specific [place] 1.015 Bedside Urine Occult Blood ++ Bedside Urine pH 6 Bedside Urine Protein ++ 100 Bedside Urine Urobilinogen - Negative Bedside Urine Nitrite - Negative Bedside Urine Leukocytes - Negative Esterase Point of care testing: Urine Dip Bedside Urine Glucose 1000 mg/dl Bedside Urine Bilirubin - Negative Bedside Urine Ketone - Negative Urine Specific [place] 1.015 Bedside Urine Occult Blood ++ Bedside Urine pH 6 Bedside Urine Protein ++ 100 Bedside Urine Urobilinogen - Negative Bedside Urine Nitrite - Negative Bedside Urine Leukocytes - Negative Esterase [facility] Narrative Medical decision making narrative: Patient does have swelling of his extremities that has been progressively worsening over the past couple days. The right lower extremity is worse than the left but this is not unusual for him. He is not having chest pain. No shortness of breath. Is hyperglycemic but is not in DKA given his CO2 of 32. Kidney functions unremarkable. Corrected sodium of 136 given his hyperglycemia. Urinalysis shows no signs of infection. Very high suspicion that the edema is related to his underlying blood sugar issues. I discussed with him the importance of starting the insulin and not waiting until Friday. He expressed understanding of this and stated that he would start the medication today. Patient not in heart failure. Hold on further workup today. Considered re- evaluating for DVT given his history however I feel that is less likely based on his presentation. He states that his right lower extremity normally swells and would be unlikely that he had a DVT in all 4 extremities causing the swelling today. Will discharge home with follow-up with his primary provider. He was given return precautions. He expressed understanding and agreement. Discharge Plan Departure Patient Disposition: Home Clinical Impression: Hyperglycemia, Diabetes, Edema, peripheral Instructions: Edema (Alternative Therapy), Edema Activity Restrictions/Additional Instructions: It is important that you start taking the insulin as prescribed you by your primary doctor today. I suspect that the swelling that you are having is related to this. Continue all of your other medications as directed. Contact your primary doctor for a follow-up. Return to the emergency department for any new or worsening symptoms. Prescriptions: No Action Insulin aspart SSI See Rx Instructions .ROUTE .COMPLEX Rx Instructions: Sliding scale 2 units per 50 glucose >100 SUBCUT QAC; Max dose 20 units per day. (DME) insulin syr/ndl U100 half damien 0.5 mL 31 gauge x 5/16 syringe See Rx Instructions .ROUTE .MEDSUPPLY Qty: 300 3RF Rx Instructions: sliding scale 3 times a day before meals (DME) GLUCOSE TEST STRIPS Qty: 100 5RF Rx Instructions: CHECK BLOOD SUGARS THREE TIMES DAILY escitalopram oxalate 20 mg tablet 20 mg PO DAILY Qty: 90 3RF cholecalciferol (vitamin D3) 1,250 mcg (50,000 unit) capsule 1,250 mcg PO QWEEK 90 Days Qty: 12 0RF bupropion HCl 150 mg tablet extended release 24 hr 150 mg PO QAM Qty: 30 0RF (DME) Glucometer Relion Qty: 1 Rx Instructions: As directed (DME) PEN NEEDLES 32G Qty: 100 1RF Rx Instructions: USE TO CHECK BLOOD SUGARS THREE TIMES A DAY OR DIRECTED albuterol sulfate 90 mcg/actuation HFA aerosol inhaler 1 - 2 puff INHALATION Q4H PRN (Reason: Shortness Of Breath Or Wheezing) Qty: 8.5 11RF atorvastatin 40 mg tablet 40 mg PO BEDTIME Qty: 90 3RF Novolog U-100 Insulin aspart 100 unit/mL solution 10 unit subcut AC MDD 50 units Qty: 10 5RF Rx Instructions: For high carb meals, inject 10 units. For low carb meals, inject 5 units. metformin 750 mg tablet extended release 24 hr 1,500 mg PO DAILY Qty: 180 1RF (DME) blood sugar diagnostic [Blood Glucose Test] strip See Dose Instructions .ROUTE .MEDSUPPLY Qty: 100 2RF Dose Instruction: As directed Rx Instructions: TEST BLOOD SUGAR 3 TIMES A DAY aspirin 81 mg tablet,delayed release (DR/EC) 81 mg PO DAILY ferrous sulfate [Feosol] 325 mg (65 mg iron) tablet 325 mg PO DAILY Qty: 30 0RF Referrals: Rashi Andrade MD [Primary Care Provider] -
[2022-02-02 02:18] VITALS: PULSE 106; O2SAT 97
[2022-02-02 02:25] LABS: Add Manual Diff / Slide Review NO; Basophils Absolute Auto 100 /uL (0-100); Basophils Percent Auto 1.2 % (0-2); Eosinophils Absolute Auto 100 /uL (0-450); Eosinophils Percent Auto 2.2 % (2-4); Hematocrit 29.5 % (41-53); Lymphocytes Absolute Auto 1300 /uL (1100-4500); Lymphocytes Percent Auto 26.1 % (25-40); Mean Corpuscular HGB Conc 33.9 % (30-36); Mean Corpuscular Volume 88.5 fL (80-100); Monocytes Absolute Auto 500 /uL (0-900); Monocytes Percent Auto 9.2 % (3-14); Neutrophils Absolute Auto 3100 /uL (1500-7000); Neutrophils Percent Auto 61.3 % (50-75); Platelet Count 143 X10^3/uL (150-400); Red Blood Cell Count 3.33 X10^6/uL (4.5-5.9); Red Cell Distribution Width 13.4 % (11.6-14.8)
[2022-02-02 02:30] VITALS: PULSE 105; O2SAT 98
[2022-02-02 02:37] LABS: Alanine Aminotransferase 23 IU/L (<50); Albumin Globulin Ratio 0.9 (1.0-2.8); Alkaline Phosphatase 128 U/L (38-126); Aspartate Aminotransferase 32 IU/L (17-59); BUN Creatinine Ratio 16.4 (6-22); Bilirubin Total 0.6 mg/dL (0.2-1.3); Blood Urea Nitrogen 20 mg/dL (9-20); Calcium 8.6 mg/dL (8.4-10.2); Carbon Dioxide 32 mmol/L (22-32); Chloride 88 mmol/L (98-107); Estimated Glomerular Filt Rate > 60 mL/min (>60); Globulin 3.4 g/dL (1.7-4.1); HEMOLYSIS < 15 (0-50); Lipase 111 U/L (23-300); Magnesium 1.8 mg/dL (1.6-2.3); Phosphorous 4.8 mg/dL (2.5-4.5); Potassium 3.3 mmol/L (3.4-5.1); Sodium 126 mmol/L (137-145); Total Protein 6.4 g/dL (6.3-8.2)
[2022-02-02 02:45] LABS: Glucose 719 mg/dL (70-100); NT-proBNP (BNP-Adult 18+) 637 pg/mL (<125)
[2022-02-02 03:00] VITALS: PULSE 105; O2SAT 99
[2022-02-02 03:13] LABS: Thyroid Stimulating Hormone 4.25 uIU/mL (0.47-4.68)
[2022-02-02] MEDS: SODIUM CHLORIDE 0.9% 1,000 ML 1000 ML IV (03:25)
[2022-02-02 03:30] VITALS: PULSE 108; O2SAT 99
[2022-02-02 03:37] LABS: RBC Urine 1-5/HPF (0-5/HPF)
[2022-02-02 03:38] LABS: Bacteria Urine None Seen; Culture Indicated Urine Cult Not Indicated; WBC Urine 0-1/HPF (0-5/HPF)
[2022-02-02 04:27] VITALS: BP 176/102; PULSE 704; RESP 17; O2SAT 96
== END 2022-02-02 04:28 | disposition home or self-care (01) ==
PROVIDERS: Emergency Provider Emergency Medicine; PCP Student in an Organized Health Care Education/Training Program
DX: R60.9 Edema, unspecified (principal); E11.65 Type 2 diabetes mellitus with hyperglycemia; Z79.4 Long term (current) use of insulin
CPT/HCPCS: 36415; 80053; 81003; 81015; 83690; 83735; 83880; 84100; 84443; 85025; 96360; 99284

== ENCOUNTER → 2022-04-10 14:24 | Outpatient (CLI) | payer OTHER, MEDICAID, SELFPAY ==
[2022-04-10 15:20] LABS: Hematocrit 22.9 % (41-53)
[2022-04-10 15:22] LABS: Prothrombin Time 10.9 SECONDS (10.1-12.7)
[2022-04-10 15:25] LABS: PTT Partial Thromboplastin Tim 30 SECONDS (26-36)
[2022-04-10 15:38] LABS: BUN Creatinine Ratio 29.9 (6-22); Blood Urea Nitrogen 32 mg/dL (9-20); Calcium 8.6 mg/dL (8.4-10.2); Carbon Dioxide 25 mmol/L (22-32); Chloride 99 mmol/L (98-107); Estimated Glomerular Filt Rate > 60 mL/min (>60); Glucose 397 mg/dL (70-100); HEMOLYSIS < 15 (0-50); Potassium 4.6 mmol/L (3.4-5.1); Sodium 129 mmol/L (137-145)
[2022-04-10 17:55] LABS: Creatinine Urine Random 42.7 mg/dL
[2022-04-10 18:13] LABS: Protein (Total) Urine Random 1161 mg/dL (0-12); Protein Creatinine Ratio Urine 27.18 GRAM/24H
== END ==
PROVIDERS: PCP Student in an Organized Health Care Education/Training Program; Referring Provider Internal Medicine Nephrology; Visit Provider Internal Medicine Nephrology
DX: I10 Essential (primary) hypertension (principal); N06.9 Isolated proteinuria with unspecified morphologic lesion; E11.22 Type 2 diabetes mellitus with diabetic chronic kidney disease; N18.2 Chronic kidney disease, stage 2 (mild); Z79.4 Long term (current) use of insulin; Z51.81 Encounter for therapeutic drug level monitoring; Z79.01 Long term (current) use of anticoagulants
CPT/HCPCS: 36415; 80048; 82570; 84156; 85014; 85018; 85610; 85730

== ENCOUNTER → 2022-05-06 08:29 | Outpatient (CLI) | payer OTHER, MEDICAID, SELFPAY ==
[2022-05-06 09:28] LABS: Hematocrit 24.1 % (41-53); Mean Corpuscular HGB Conc 33.1 % (30-36); Mean Corpuscular Volume 87.7 fL (80-100); Platelet Count 249 X10^3/uL (150-400); Red Blood Cell Count 2.75 X10^6/uL (4.5-5.9); Red Cell Distribution Width 15.5 % (11.6-14.8); White Blood Cell Count 6.7 X10^3/uL (4.5-11.0)
[2022-05-06 09:39] LABS: Hemoglobin A1C% w Est Avg Glu 11.7 % (4.0-6.0)
[2022-05-06 09:56] LABS: Alanine Aminotransferase 23 IU/L (<50); Albumin 2.7 g/dL (3.5-5.0); Albumin Globulin Ratio 0.6 (1.0-2.8); Alkaline Phosphatase 284 U/L (38-126); Aspartate Aminotransferase 21 IU/L (17-59); BUN Creatinine Ratio 47.8 (6-22); Bilirubin Total 0.2 mg/dL (0.2-1.3); Blood Urea Nitrogen 65 mg/dL (9-20); Carbon Dioxide 22 mmol/L (22-32); Chloride 99 mmol/L (98-107); Cholesterol 166 mg/dL (140-199); Estimated Glomerular Filt Rate > 60 mL/min (>60); Globulin 4.2 g/dL (1.7-4.1); Glucose 484 mg/dL (70-100); HDL Cholesterol 56 mg/dL (40-60); HEMOLYSIS < 15 (0-50); LDL Cholesterol Calculated 89 mg/dL (<100); Potassium 5.3 mmol/L (3.4-5.1); Sodium 130 mmol/L (137-145); Total Protein 6.9 g/dL (6.3-8.2); Triglycerides 103 mg/dL (35-150)
[2022-05-06 11:18] LABS: Vitamin D 25 Hydroxy (D3) < 12.8 ng/mL (30.0-100.0)
[2022-05-06 16:00] LABS: NT-proBNP (BNP-Adult 18+) 18000 pg/mL (<125)
[2022-05-07 09:48] LABS: Tacrolimus 3.1 ng/mL (2.0-20.0)
== END ==
PROVIDERS: Family Medicine; PCP Student in an Organized Health Care Education/Training Program; Referring Provider Internal Medicine Nephrology; Visit Provider Internal Medicine Nephrology
DX: N05.0 Unspecified nephritic syndrome with minor glomerular abnormality (principal); E11.21 Type 2 diabetes mellitus with diabetic nephropathy; E11.59 Type 2 diabetes mellitus with other circulatory complications; E11.69 Type 2 diabetes mellitus with other specified complication; E55.9 Vitamin D deficiency, unspecified; E78.5 Hyperlipidemia, unspecified; I10 Essential (primary) hypertension; Z79.4 Long term (current) use of insulin; R60.0 Localized edema
CPT/HCPCS: 36415; 80053; 80061; 80197; 82306; 83036; 83880; 85027

== ENCOUNTER → 2022-05-06 15:02 | Outpatient (CLI) | payer OTHER, MEDICAID, SELFPAY ==
--- NOTE | 2022-05-06 15:04 | DI.RAD.S_ITS ---
PROCEDURE: XR CHEST 2V INDICATIONS: shortness of breath TECHNIQUE: 2 views of the chest were acquired. COMPARISON: [facility], [place], XR CHEST 1V, 09/17/2019, 22:17. FINDINGS: Surgical changes and devices: None. Lungs and pleura: Lower lung volumes. Bibasilar alveolar opacities and moderate size bilateral pleural effusions. Diffuse interstitial thickening. Patchy rounded parenchymal opacity in the left mid lung. No pneumothorax. Mediastinum: The heart is obscured. Central vasculature is diffusely prominent. Mediastinal contour is normal. Bones and chest wall: No suspicious bony abnormalities. Soft tissues appear unremarkable. IMPRESSION: 1. Interstitial thickening, bibasilar opacities, and bilateral pleural effusions. This is most suggestive of CHF although multifocal pneumonia can have this appearance. Correlate clinically. Dictated by: Brooke Taylor M.D. on 05/06/2022 at 16:12 Approved by: Brooke Taylor M.D. on 05/06/2022 at 16:14
== END ==
PROVIDERS: PCP Student in an Organized Health Care Education/Training Program; Referring Provider Student in an Organized Health Care Education/Training Program; Visit Provider Student in an Organized Health Care Education/Training Program
DX: J90 Pleural effusion, not elsewhere classified (principal); E11.21 Type 2 diabetes mellitus with diabetic nephropathy; E11.59 Type 2 diabetes mellitus with other circulatory complications; E11.69 Type 2 diabetes mellitus with other specified complication; E55.9 Vitamin D deficiency, unspecified; E78.5 Hyperlipidemia, unspecified; I10 Essential (primary) hypertension; R06.02 Shortness of breath; R60.0 Localized edema
CPT/HCPCS: 71046

== ENCOUNTER 2022-05-06 16:06 | Inpatient (IN) | payer OTHER, MEDICAID, SELFPAY ==
[2022-05-06] VITALS (12 sets, daily range): BP systolic 143–164; BP diastolic 91–103; PULSE 94–101; RESP 17–22; TEMP 36–36.4; O2SAT 89–96; BMI 25.0
[2022-05-06 17:55] LABS: COVID19 -Nasal RAPID Negative (Negative)
--- NOTE | 2022-05-06 18:16 | ED_ITS ---
HPI - Recheck/Abnormal Lab/Rx General Chief Complaint: Recheck/Abnormal Lab/Rx Stated Complaint: Sent from [facility] Time Seen by Provider: 05/06/22 17:21 Source: patient and family Mode of arrival: Wheelchair History of Present Illness HPI narrative: 52M smoker with history of hypertension, diabetes, hyperlipidemia presents at the request of his primary care provider for evaluation of shortness of breath increasing over the past 2 weeks or so. He states he is gained significant weight, has noted swelling in his abdomen and lower extremities. He becomes short of breath when he lays flat as well as with minimal exertion. He now become so fatigued that he is using a wheelchair. He was evaluated earlier today and had chest x-ray suggestive of pulmonary edema with bilateral pleural effusions and significantly elevated BNP. He was sent here for further evaluation. He denies any change in medications or diet. He is had no chest pain, fever or chills. He is had some dry and hacking cough but denies any sputum production. He denies dizziness or lightheadedness but is profoundly weak. He denies runny nose, sore throat. Related Data Home Medications Medication Instructions Recorded Confirmed Glucometer Relion #1 ea 05/21/19 05/06/22 aspirin 81 mg tablet,delayed 81 mg PO DAILY 07/27/19 05/06/22 release Insulin aspart SSI See Rx Instructions .Route .COMPLEX 08/12/19 05/06/22 Previous Rx's Medication Instructions Recorded blood sugar diagnostic (Blood #100 ea 06/02/18 Glucose Test strips) PEN NEEDLES #100 ea 05/21/19 insulin syr/ndl U100 half damien 0.5 #300 ea 09/29/19 mL 31 gauge x 5/16 GLUCOSE TEST STRIPS #100 ea 03/21/20 albuterol sulfate 90 mcg/actuation 1 - 2 puff inhalation Q4H PRN 05/31/21 aerosol inhaler Shortness Of Breath Or Wheezing #8.5 grams atorvastatin 40 mg tablet 40 mg PO BEDTIME #90 tabs 05/31/21 insulin aspart U-100 100 unit/mL 10 unit (0.1 mL) SUBCUT AC #10 mL 05/31/21 subcutaneous solution (Novolog U-100 Insulin aspart) metformin 750 mg tablet,extended 1,500 mg PO DAILY #180 tabs 05/31/21 release 24 hr escitalopram oxalate 20 mg tablet 20 mg PO DAILY #90 tabs 07/27/21 bupropion HCl 150 mg 24 hr tablet, 150 mg PO QAM #30 tabs 01/31/22 extended release Allergies Allergy/AdvReac Type Severity Reaction Status Date / Time No Known Drug Allergies Allergy Verified 04/10/22 13:42 Review of Systems Review of Systems Narrative: GENERAL: See HPI HEENT: Denies sinus pain, ear pain, sore throat, difficulty swallowing, dizziness. RESPIRATORY: See HPI CARDIOVASCULAR: See HPI GASTROINTESTINAL: Denies nausea, vomiting, abdominal pain, diarrhea, constipation, melena. : Denies dysuria, frequency, incontinence, hematuria, urinary retention. MUSCULOSKELETAL: denies weakness, joint pain, or bony pain SKIN: Denies rash, skin lesions, or other NEUROLOGIC: Denies weakness, headache, numbness, change in speech, confusion, seizures, incoordination. PSYCHIATRIC: No concerning psychosocial issues. 12 point review of systems is negative except for those stated above Patient History Medical History Diabetic cataract of right eye Fracture of clavicle, left, closed Social History Smoking Status: Current some day smoker Smoking Status: Current some day smoker Substance Use Type: does not use Exam Narrative Exam Narrative: GENERAL: [52] year old patient appears stated age. Well-developed patient, in mild distress. Short of breath. Resting SpO2 88-89% HEAD: Atraumatic. Normocephalic. EYES: Pupils equal round and reactive. Extraocular motions intact. No scleral icterus. No injection or drainage. ENT: Nose without bleeding, purulent drainage. Throat without erythema, tonsillar hypertrophy or exudate. Airway patent. NECK: Trachea midline. Non tender CARDIOVASCULAR: Regular rate and rhythm without murmurs, gallops, or rubs. RESPIRATORY: increased work of breathing, decreased breath sounds throughout, prolonged expiratory phase and faint crackles in bilateral bases GASTROINTESTINAL: Abdomen soft, non-tender, edematous EXTREMITIES: Significant bilateral lower extremity edema, tense BACK: Nontender without deformity or crepitance. No flank tenderness. NEURO: AOx3. SKIN: No rash or erythema of visible areas Initial Vital Signs Initial Vital Signs: Vital Signs Temperature 97.5 F L 05/06/22 16:12 Pulse Rate 95 H 05/06/22 16:12 Respiratory Rate 22 05/06/22 16:12 Blood Pressure 148/93 H 05/06/22 16:12 Pulse Oximetry 95 05/06/22 16:12 Oxygen Delivery Method 05/06/22 16:12 Course Orders Ordered: ED Orders 05/06/22 17:11 COVID19 -Nasal RAPID/Pre-Proc Stat Complete Blood Count AUTO DIFF Stat Comprehensive Metabolic Panel Stat D Dimer Stat Magnesium Stat NT-proBNP (BNP-Adult 18+) Stat Procalcitonin Stat Prothrombin Time INR Stat Troponin & CK Cardiac Panel Stat 05/06/22 17:19 EKG-12 Lead Stat 05/06/22 17:45 Urine Microscopic Stat 05/06/22 19:03 CT angio chest PE protocol Stat 05/06/22 19:41 ABG [Arterial Blood Gas] Stat Discontinued Medications Furosemide (Furosemide 40 Mg/4 Ml Vial) 40 mg IV NOW ONE Stop: 05/06/22 18:22 Last Admin: 05/06/22 19:24 Dose: 40 mg Documented By: Vital Signs Vital signs: Vital Signs - 8 hr 05/06/22 16:12 05/06/22 17:06 05/06/22 17:06 Temperature 97.5 F L Pulse Rate 95 H 99 H Respiratory Rate 22 Blood Pressure 148/93 H 158/95 H Pulse Oximetry 95 96 Oxygen Delivery Method Room Air Room Air 05/06/22 17:30 05/06/22 17:34 05/06/22 18:00 Temperature Pulse Rate 101 H Respiratory Rate Blood Pressure 150/93 H 156/94 H Pulse Oximetry 90 L Oxygen Delivery Method 05/06/22 18:00 05/06/22 18:30 05/06/22 18:30 Temperature Pulse Rate 95 H 94 H Respiratory Rate Blood Pressure 160/97 H Pulse Oximetry 91 93 Oxygen Delivery Method 05/06/22 19:00 05/06/22 19:00 05/06/22 19:30 Temperature Pulse Rate 94 H 95 H Respiratory Rate Blood Pressure 152/103 H Pulse Oximetry 91 Oxygen Delivery Method 05/06/22 19:31 05/06/22 19:31 05/06/22 20:00 Temperature Pulse Rate 96 H Respiratory Rate Blood Pressure 164/92 H 157/97 H Pulse Oximetry 92 Oxygen Delivery Method 05/06/22 20:00 Temperature Pulse Rate 97 H Respiratory Rate Blood Pressure Pulse Oximetry 89 L Oxygen Delivery Method MDM - Recheck/Abnormal Lab/Rx Lab Data Result diagrams: 05/06/22 17:11 05/06/22 17:11 Labs: Lab Results 05/06/22 05/06/22 05/06/22 Range/Units 17:11 17:11 17:11 WBC (4.5-11.0) X10^3/uL RBC (4.5-5.9) X10^6/uL Hgb (13.5-17.5) g/dL Hct (41-53) % MCV (80-100) fL MCH (26-34) PG MCHC (30-36) % RDW (11.6-14.8) % Plt Count (150-400) X10^3/uL Neut % (Auto) (50-75) % Lymph % (Auto) (25-40) % [place] % (Auto) (3-14) % Eos % (Auto) (2-4) % Baso % (Auto) (0-2) % Neut # (Auto) (7694-2717) /uL Lymph # (Auto) (3223-5809) /uL [place] # (Auto) (0-900) /uL Eos # (Auto) (0-450) /uL Baso # (Auto) (0-100) /uL PT (10.1-12.7) SECONDS INR (0.9-1.3) D-Dimer 1338 H (<500) ng/ml ABG pH (7.35-7.45) ABG pCO2 (35-45) mmHg ABG pO2 (80-100) mmHg ABG HCO3 (22-26) mmol/L ABG Total CO2 (21-31) mmol/L ABG O2 Saturation (95-100) % ABG Base Excess (-2-2) mmol/L Sodium (137-145) mmol/L Potassium (3.4-5.1) mmol/L Chloride (98-107) mmol/L Carbon Dioxide (22-32) mmol/L BUN (9-20) mg/dL Creatinine (0.66-1.25) mg/dL Estimated GFR (>60) mL/min BUN/Creatinine Ratio (6-22) Glucose (70-100) mg/dL Calcium (8.4-10.2) mg/dL Magnesium (1.6-2.3) mg/dL Total Bilirubin (0.2-1.3) mg/dL AST (17-59) IU/L ALT (<50) IU/L Alkaline Phosphatase (38-126) U/L Total Creatine Kinase (55-170) U/L CK-MB (CK-2) (<2.37) ng/mL CK-MB (CK-2) Rel Index (1.5-5.0) % Troponin I (0.01-0.034) ng/mL NT-Pro-B Natriuret Pep (<125) pg/mL Total Protein (6.3-8.2) g/dL Albumin (3.5-5.0) g/dL Globulin (1.7-4.1) g/dL Albumin/Globulin Ratio (1.0-2.8) Procalcitonin 0.15 (<0.5) ng/mL Urine RBC (0-5/HPF) Urine WBC (0-5/HPF) Ur Squamous Epith Cells (0-5/HPF) Ur Renal Epithelial Cell (0-1/HPF) Amorphous Sediment Urine Bacteria (None) Granular Casts (None) Ur Culture Indicated? SARS-CoV-2 (PCR) Negative (Negative) 05/06/22 05/06/22 05/06/22 Range/Units 17:11 17:11 17:11 WBC 6.9 (4.5-11.0) X10^3/uL RBC 2.98 L (4.5-5.9) X10^6/uL Hgb 8.4 L (13.5-17.5) g/dL Hct 26.1 L (41-53) % MCV 87.7 (80-100) fL MCH 28.3 (26-34) PG MCHC 32.3 (30-36) % RDW 15.5 H (11.6-14.8) % Plt Count 268 (150-400) X10^3/uL Neut % (Auto) 75.0 (50-75) % Lymph % (Auto) 14.8 L (25-40) % [place] % (Auto) 7.1 (3-14) % Eos % (Auto) 2.2 (2-4) % Baso % (Auto) 0.9 (0-2) % Neut # (Auto) 5200 (1800-3295) /uL Lymph # (Auto) 1000 L (1934-7109) /uL [place] # (Auto) 500 (0-900) /uL Eos # (Auto) 200 (0-450) /uL Baso # (Auto) 100 (0-100) /uL PT 11.6 (10.1-12.7) SECONDS INR 1.0 (0.9-1.3) D-Dimer (<500) ng/ml ABG pH (7.35-7.45) ABG pCO2 (35-45) mmHg ABG pO2 (80-100) mmHg ABG HCO3 (22-26) mmol/L ABG Total CO2 (21-31) mmol/L ABG O2 Saturation (95-100) % ABG Base Excess (-2-2) mmol/L Sodium 131 L (137-145) mmol/L Potassium 5.2 H (3.4-5.1) mmol/L Chloride 97 L (98-107) mmol/L Carbon Dioxide 24 (22-32) mmol/L BUN 61 H (9-20) mg/dL Creatinine 1.39 H (0.66-1.25) mg/dL Estimated GFR > 60 (>60) mL/min BUN/Creatinine Ratio 43.9 H (6-22) Glucose 456 H (70-100) mg/dL Calcium 8.2 L (8.4-10.2) mg/dL Magnesium 1.6 (1.6-2.3) mg/dL Total Bilirubin 0.2 (0.2-1.3) mg/dL AST 27 (17-59) IU/L ALT 27 (<50) IU/L Alkaline Phosphatase 331 H (38-126) U/L Total Creatine Kinase 339 H (55-170) U/L CK-MB (CK-2) 8.75 H (<2.37) ng/mL CK-MB (CK-2) Rel Index 2.6 (1.5-5.0) % Troponin I 0.021 (0.01-0.034) ng/mL NT-Pro-B Natriuret Pep 09761 H (<125) pg/mL Total Protein 7.1 (6.3-8.2) g/dL Albumin 2.8 L (3.5-5.0) g/dL Globulin 4.3 H (1.7-4.1) g/dL Albumin/Globulin Ratio 0.7 L (1.0-2.8) Procalcitonin (<0.5) ng/mL Urine RBC (0-5/HPF) Urine WBC (0-5/HPF) Ur Squamous Epith Cells (0-5/HPF) Ur Renal Epithelial Cell (0-1/HPF) Amorphous Sediment Urine Bacteria (None) Granular Casts (None) Ur Culture Indicated? SARS-CoV-2 (PCR) (Negative) 05/06/22 05/06/22 Range/Units 17:45 19:41 WBC (4.5-11.0) X10^3/uL RBC (4.5-5.9) X10^6/uL Hgb (13.5-17.5) g/dL Hct (41-53) % MCV (80-100) fL MCH (26-34) PG MCHC (30-36) % RDW (11.6-14.8) % Plt Count (150-400) X10^3/uL Neut % (Auto) (50-75) % Lymph % (Auto) (25-40) % [place] % (Auto) (3-14) % Eos % (Auto) (2-4) % Baso % (Auto) (0-2) % Neut # (Auto) (5786-2092) /uL Lymph # (Auto) (9080-9823) /uL [place] # (Auto) (0-900) /uL Eos # (Auto) (0-450) /uL Baso # (Auto) (0-100) /uL PT (10.1-12.7) SECONDS INR (0.9-1.3) D-Dimer (<500) ng/ml ABG pH 7.28 L* (7.35-7.45) ABG pCO2 50.8 H (35-45) mmHg ABG pO2 31 L* (80-100) mmHg ABG HCO3 24 (22-26) mmol/L ABG Total CO2 25 (21-31) mmol/L ABG O2 Saturation 51 L* (95-100) % ABG Base Excess -3.0 L (-2-2) mmol/L Sodium (137-145) mmol/L Potassium (3.4-5.1) mmol/L Chloride (98-107) mmol/L Carbon Dioxide (22-32) mmol/L BUN (9-20) mg/dL Creatinine (0.66-1.25) mg/dL Estimated GFR (>60) mL/min BUN/Creatinine Ratio (6-22) Glucose (70-100) mg/dL Calcium (8.4-10.2) mg/dL Magnesium (1.6-2.3) mg/dL Total Bilirubin (0.2-1.3) mg/dL AST (17-59) IU/L ALT (<50) IU/L Alkaline Phosphatase (38-126) U/L Total Creatine Kinase (55-170) U/L CK-MB (CK-2) (<2.37) ng/mL CK-MB (CK-2) Rel Index (1.5-5.0) % Troponin I (0.01-0.034) ng/mL NT-Pro-B Natriuret Pep (<125) pg/mL Total Protein (6.3-8.2) g/dL Albumin (3.5-5.0) g/dL Globulin (1.7-4.1) g/dL Albumin/Globulin Ratio (1.0-2.8) Procalcitonin (<0.5) ng/mL Urine RBC 5-10/hpf H (0-5/HPF) Urine WBC None seen (0-5/HPF) Ur Squamous Epith Cells 1-5 /hpf (0-5/HPF) Ur Renal Epithelial Cell 1-5/hpf H (0-1/HPF) Amorphous Sediment 2+ Urine Bacteria None seen (None) Granular Casts 1-5/lpf (None) Ur Culture Indicated? Cult not indicated SARS-CoV-2 (PCR) (Negative) Urine Dip Bedside Urine Glucose 1000 mg/dl Bedside Urine Bilirubin - Negative Bedside Urine Ketone - Negative Urine Specific [place] 1.030 Bedside Urine Occult Blood +/- Bedside Urine pH 6.0 Bedside Urine Protein + 30 Bedside Urine Urobilinogen - Negative Bedside Urine Nitrite - Negative Bedside Urine Leukocytes - Negative Esterase Imaging Data CT scan - chest: Radiologist's Impression: Close Chest CTA (Signed) Mykel Cortés - 05/06/22 Chest X-Ray (Signed) Brooke Taylor - 05/06/22 DI Result CC 12/16/19 Outside EKG 10/01/19 Brain MRI (Signed) AngelParth - 09/30/19 Chest CTA (Addendum) Nate Goodwin - 09/17/[address] (Signed) Nate Goodwin - 09/17/19 Chest X-Ray (Signed) Nate Goodwin - 09/17/19 DI Result CC 07/16/19 Chest X-Ray (Signed) Sunday Clay - 05/18/[address] (Signed) ObedSunday - 05/18/19 DI Result CC 03/13/19 Launch?[place] [address] CT Scan Report Signed Patient: Thaddeus Ferris Jr MR#: [id number] : 1970 Acct:[id number] Age/Sex: 52 / M Date of Service: 05/06/22 Loc: ED Accession Number: [id number] ?? Procedure: CT angio chest PE protocol Ordering Provider: Zeeshan Rodriguez D.O. PROCEDURE:? CT ANGIO CHEST PE PROTOCOL ? INDICATIONS:? new onset CHF, critical Dimer ? TECHNIQUE:? After the administration of intravenous contrast, 2 mm thick sections acquired from the pulmonary apices to the posterior costophrenic angles.? 3-dimensional maximum intensity projection (MIP) coronal and sagittal reformats were then acquired through the thorax.? For radiation dose reduction, the following was used:? automated exposure control, adjustment of mA and/or kV according to patient size.? ? COMPARISON:? None. ? FINDINGS:? Image quality:? Excellent.? ? Pulmonary arteries:? Pulmonary arteries are normal in size, and demonstrate no intraluminal filling defects to suggest central pulmonary embolism.? ? Lungs and pleura:? Moderate to large bilateral pleural effusions with overlying atelectasis.? Diffuse interlobular septal thickening with bilateral upper and lower lobe areas ground-glass opacity (crazy paving), indicative of severe pulmonary edema. ? Mediastinum:? Heart size is normal, without pericardial effusion.? No mediastinal or hilar adenopathy.? Thoracic aorta is normal in caliber and enhancement.? Esophagus is normal in caliber, without hiatal hernia.? ? Bones and chest wall:? No suspicious bony lesions.? Ribs and thoracic spine appear intact throughout.? No axillary or supraclavicular adenopathy.? Diffuse anasarca. ? Abdomen:? Visualized upper abdominal solid organs appear normal in the early arterial phase of enhancement.? ? IMPRESSION:? ? Cardiomegaly with severe pulmonary edema along with related moderate to severe pleural effusions and diffuse anasarca.? Findings are all presumably related to cardiac dysfunction, although there could be an additional contributory cause for fluid third-spacing.? ? No pulmonary embolism identified. ? Dictated by: Mykel Cortés M.D. on 05/06/2022 at 19:36 ? ? Approved by: Mykel Cortés M.D. on 05/06/2022 at 19:38 ? MDM Narrative Medical decision making narrative: Patient requires hospitalization for further characterization and stabilization of his newly discovered CHF. He required supplemental oxygen, diuresis and echocardiogram. Discharge Plan Departure Patient Disposition: Admitted As Inpatient Clinical Impression: Acute CHF, Anasarca, Insulin dependent diabetes mellitus Admit Date/Time: 05/06/22 20:20 Admit Provider: Nini West
[2022-05-06 18:31] LABS: Amorphous Sediment Urine 2+; Bacteria Urine None Seen; Culture Indicated Urine Cult Not Indicated; Granular Casts Urine 1-5/LPF; RBC Urine 5-10/HPF (0-5/HPF); Renal Epithelial Cells Urine 1-5/HPF (0-1/HPF); Squamous Epithelial Cell Urine 1-5 /HPF (0-5/HPF); WBC Urine None Seen (0-5/HPF)
[2022-05-06 18:38] LABS: Add Manual Diff / Slide Review NO; Basophils Absolute Auto 100 /uL (0-100); Basophils Percent Auto 0.9 % (0-2); Eosinophils Absolute Auto 200 /uL (0-450); Eosinophils Percent Auto 2.2 % (2-4); Hematocrit 26.1 % (41-53); Hemoglobin 8.4 g/dL (13.5-17.5); Lymphocytes Absolute Auto 1000 /uL (1100-4500); Lymphocytes Percent Auto 14.8 % (25-40); Mean Corpuscular HGB Conc 32.3 % (30-36); Mean Corpuscular Hemoglobin 28.3 PG (26-34); Mean Corpuscular Volume 87.7 fL (80-100); Monocytes Absolute Auto 500 /uL (0-900); Monocytes Percent Auto 7.1 % (3-14); Neutrophils Absolute Auto 5200 /uL (1500-7000); Platelet Count 268 X10^3/uL (150-400); Red Blood Cell Count 2.98 X10^6/uL (4.5-5.9); Red Cell Distribution Width 15.5 % (11.6-14.8); White Blood Cell Count 6.9 X10^3/uL (4.5-11.0)
[2022-05-06 18:41] LABS: D Dimer 1338 ng/ml (<500)
[2022-05-06 18:47] LABS: Prothrombin Time 11.6 SECONDS (10.1-12.7)
[2022-05-06 18:48] LABS: Alanine Aminotransferase 27 IU/L (<50); Albumin 2.8 g/dL (3.5-5.0); Albumin Globulin Ratio 0.7 (1.0-2.8); Alkaline Phosphatase 331 U/L (38-126); Aspartate Aminotransferase 27 IU/L (17-59); BUN Creatinine Ratio 43.9 (6-22); Bilirubin Total 0.2 mg/dL (0.2-1.3); Blood Urea Nitrogen 61 mg/dL (9-20); Calcium 8.2 mg/dL (8.4-10.2); Carbon Dioxide 24 mmol/L (22-32); Chloride 97 mmol/L (98-107); Creatine Kinase 339 U/L (55-170); Estimated Glomerular Filt Rate > 60 mL/min (>60); Globulin 4.3 g/dL (1.7-4.1); Glucose 456 mg/dL (70-100); HEMOLYSIS < 15 (0-50); Magnesium 1.6 mg/dL (1.6-2.3); Potassium 5.2 mmol/L (3.4-5.1); Sodium 131 mmol/L (137-145); Total Protein 7.1 g/dL (6.3-8.2)
[2022-05-06 18:59] LABS: NT-proBNP (BNP-Adult 18+) 17400 pg/mL (<125); Troponin I 0.021 ng/mL (0.01-0.034)
[2022-05-06 19:03] LABS: CKMB % Relative Index 2.6 % (1.5-5.0); Creatine Kinase MB 8.75 ng/mL (<2.37)
--- NOTE | 2022-05-06 19:03 | DI.CT.S_ITS ---
PROCEDURE: CT ANGIO CHEST PE PROTOCOL INDICATIONS: new onset CHF, critical Dimer TECHNIQUE: After the administration of intravenous contrast, 2 mm thick sections acquired from the pulmonary apices to the posterior costophrenic angles. 3-dimensional maximum intensity projection (MIP) coronal and sagittal reformats were then acquired through the thorax. For radiation dose reduction, the following was used: automated exposure control, adjustment of mA and/or kV according to patient size. COMPARISON: None. FINDINGS: Image quality: Excellent. Pulmonary arteries: Pulmonary arteries are normal in size, and demonstrate no intraluminal filling defects to suggest central pulmonary embolism. Lungs and pleura: Moderate to large bilateral pleural effusions with overlying atelectasis. Diffuse interlobular septal thickening with bilateral upper and lower lobe areas ground-glass opacity (crazy paving), indicative of severe pulmonary edema. Mediastinum: Heart size is normal, without pericardial effusion. No mediastinal or hilar adenopathy. Thoracic aorta is normal in caliber and enhancement. Esophagus is normal in caliber, without hiatal hernia. Bones and chest wall: No suspicious bony lesions. Ribs and thoracic spine appear intact throughout. No axillary or supraclavicular adenopathy. Diffuse anasarca. Abdomen: Visualized upper abdominal solid organs appear normal in the early arterial phase of enhancement. IMPRESSION: Cardiomegaly with severe pulmonary edema along with related moderate to severe pleural effusions and diffuse anasarca. Findings are all presumably related to cardiac dysfunction, although there could be an additional contributory cause for fluid third-spacing. No pulmonary embolism identified. Dictated by: Mykel Cortés M.D. on 05/06/2022 at 19:36 Approved by: Mykel Cortés M.D. on 05/06/2022 at 19:38
[2022-05-06 19:06] LABS: Procalcitonin 0.15 ng/mL (<0.5)
[2022-05-06] MEDS: FUROSEMIDE 40 MG/4 ML VIAL IV (19:24)
[2022-05-06 19:55] LABS: HCO3 ABG 24 mmol/L (22-26); Oxygen Saturation ABG 51 % (95-100); PCO2 ABG 50.8 mmHg (35-45); PO2 ABG 31 mmHg (80-100); TCO2 ABG 25 mmol/L (21-31)
[2022-05-06 19:56] LABS: pH ABG 7.28 (7.35-7.45)
--- NOTE | 2022-05-06 20:14 | PC.NURSE ---
Patient 02 saturation 86% on room air. Placed on 2L by NC and O2 saturation slowly increases to 93%. Patient denies any pain or discomfort at this point in time. Family at the bedside
--- NOTE | 2022-05-06 21:25 | DI.ECHO.S_ITS ---
[place] +---------+ [facility] +---------+ : : [address] : : : : [id number] : : : : Phone: [phone] Echocardiogram Report + + :Name: CUCO CHAU JR Study Date: 05/07/2022 Height: 73 in : :[facility] ReadingLocation: Weight: 190 lb : : Gender: Male BSA: 2.1 m2 : :: 1970 Age: 52 yrs BP: 143/91 mmHg: :Reason For Study: CONGESTIVE HEART FAILURE : :Ordering Physician: YANCI, : :JESSICA Performed By: Luiza Perez : :Referring: JESSICA PETE : + + Interpretation Summary Borderline concentric left ventricular hypertrophy with ejection fraction 25- 30%. There is moderate to severe global hypokinesis of the left ventricle. Mildly dilated right ventricle with normal right ventricular systolic function. Severely dilated left atrium. Mild to moderate mitral annular calcification. Moderate mitral regurgitation. Mild tricuspid regurgitation. Large Pleural effusion noted. Procedure: A two-dimensional transthoracic echocardiogram with color flow and Doppler was performed. The study quality was technically good. There is no prior echocardiogram noted for this patient. The patient was in sinus rhythm with heart rates between 95-98 bpm during the exam. Left Ventricle: The left ventricle is normal in size. There is borderline concentric left ventricular hypertrophy. The ejection fraction is estimated to be 25-30%. There is moderate to severe global hypokinesis of the left ventricle. Diastolic function could not be accurately assessed due to confounding valvular disease. Right Ventricle: The right ventricle is mildly dilated. The right ventricular systolic function is normal. Atria: The left atrium is severely dilated. Right atrial size is normal. There is no Doppler evidence for an interatrial shunt. Mitral Valve: There is mild to moderate mitral annular calcification. The mitral valve leaflets appear mildly thickened, but open well. There is moderate mitral regurgitation. Aortic Valve: The aortic valve is trileaflet. The aortic valve opens well. There is no aortic valve stenosis. No aortic regurgitation is present. Tricuspid Valve: The tricuspid valve is normal in structure and function. There is mild tricuspid regurgitation. Pulmonic Valve: The pulmonic valve is not well visualized. There is no pulmonic valvular regurgitation. Great Vessels: The aortic root is borderline dilated. The ascending aorta could not be visualized. The IVC is dilated (diameter is greater than 2.1 cm) and it collapses less than 50% with a sniff. This suggests a high right atrial pressure of 15 mm Hg. Pericardium/ Pleura There is no pericardial effusion. Large Pleural effusion noted. MMode/2D Measurements & Calculations LVIDd: 4.8 cm LVOT diam: 2.4 cm LVIDs: 4.2 cm Ao root diam: 4.0 cm FS: 11.4 % EPSS: 2.0 cm IVSd: 1.2 cm LVPWd: 0.99 cm LV ray. diameter/BSA (cm/m^2): 2.3 LV sys. diameter/BSA (cm/m^2): 2.0 LA A2 area: 32.7 cm2 RA long axis: 4.8 cm LA A4 area: 25.3 cm2 RA area: 19.0 cm2 LA length (vol): 5.6 cm RA vol: 64.2 ml LA vol: 124.7 ml RA : 30.5 ml/m2 LA vol index: 59.2 ml/m2 IVC diam: 2.9 cm RVD1 (basal): 4.3 cm RVD2 (mid): 3.0 cm TAPSE: 1.9 cm Doppler Measurements & Calculations Ao V2 max: 88.0 cm/sec LVOT Max [place]: 61.9 cm/sec Ao V2 mean: 65.0 cm/sec LV V1 max P.5 mmHg Ao max P.1 mmHg LV V1 VTI: 12.5 cm Ao mean P.8 mmHg ELISSA(I,D): 3.4 cm2 Ao V2 VTI: 16.8 cm ELISSA(V,D): 3.2 cm2 sev ratio: 0.74 ELISSA indexed to BSA (cm^2/m^2): 1.6 MV E max jaycob: 93.5 cm/sec PA V2 max: 58.9 cm/sec MV A max jaycob: 2.4 cm/sec PA V2 mean: 41.4 cm/sec MV E/A: 39.0 PA mean P.76 mmHg Med Peak E' Jaycob: 6.2 cm/sec E/E' med: 15.0 Lat Peak E' Jaycob: 10.0 cm/sec E/E' lat: 9.4 E/e' average: 12.2 MV dec time: 0.19 sec MR ERO: 0.22 cm2 MR PISA: 3.2 cm2 SV(LVOT): 57.1 ml MR flow rate: 118.9 cm3/sec MR PISA radius: 0.72 cm Electronically signed by: David Jones on Reading Physician:05/07/2022 06:00 PM
[2022-05-06 21:53] LABS: Lactate (Lactic Acid) 0.6 mmol/L (0.7-2.1)
[2022-05-06 21:54] LABS: Alanine Aminotransferase 27 IU/L (<50); Albumin 2.8 g/dL (3.5-5.0); Albumin Globulin Ratio 0.7 (1.0-2.8); Alkaline Phosphatase 328 U/L (38-126); Aspartate Aminotransferase 31 IU/L (17-59); Bilirubin Total 0.2 mg/dL (0.2-1.3); Bilirubin Unconjugated 0.1 mg/dL (0.0-1.1); Cholesterol 188 mg/dL (140-199); Globulin 4.3 g/dL (1.7-4.1); HDL Cholesterol 60 mg/dL (40-60); HEMOLYSIS < 15 (0-50); LDL Cholesterol Calculated 109 mg/dL (<100); Total Protein 7.1 g/dL (6.3-8.2); Triglycerides 97 mg/dL (35-150)
[2022-05-06 21:55] LABS: Amylase 36 U/L (30-110); Gamma Glutamyl Transpeptidase 100 U/L (15-73); Lipase 69 U/L (23-300)
[2022-05-06 22:25] LABS: Thyroid Stimulating Hormone 6.76 uIU/mL (0.47-4.68)
[2022-05-06] MEDS: ATORVASTATIN 20 MG TABLET 40 MG PO (22:42)
[2022-05-06] MEDS: predniSONE 20 MG TABLET 40 MG PO (22:42)
[2022-05-06] MEDS: LOSARTAN 25 MG TABLET 12.5 MG PO (22:43)
[2022-05-06] MEDS: PANTOPRAZOLE 40 MG VIAL IV (22:50)
[2022-05-06] MEDS: INSULIN LISPRO 100 UNIT/ML 3ML VIAL SUBCUT (23:21)
[2022-05-06] MEDS: SODIUM CHLORIDE 0.9% FLUSH 10 ML IV (23:22)
[2022-05-06] MEDS: buPROPion XL 150 MG TAB PO (23:22)
[2022-05-06 23:39] LABS: Troponin I 0.021 ng/mL (0.01-0.034)
[2022-05-07] VITALS (11 sets, daily range): BP systolic 129–153; BP diastolic 89–106; PULSE 91–102; RESP 16–21; TEMP 36–36.6; O2SAT 91–97
--- NOTE | 2022-05-07 | DI.MRI.S_ITS ---
PROCEDURE: MR FOOT RT WO/W CON INDICATIONS: WOUND TECHNIQUE: Noncontrast sagittal T1 spin echo and T2 fast spin echo with fat saturation, long-axis T1 spin echo and T2 fast spin echo with fat saturation; short-axis T1 spin echo, proton density fast spin echo, and T2 fast spin echo with fat saturation through the forefoot. Post-contrast short axis, long axis, and sagittal T1 spin echo with fat saturation through the forefoot. COMPARISON: None. FINDINGS: Image quality: Diagnostic. Patient refused to complete postcontrast sagittal sequence. Bones and joints: No abnormal osseous edema or enhancement. No focal cortical destruction is seen. Mild degenerative changes at the 1st metatarsophalangeal joint and in the interphalangeal joints of the toes. The sesamoid bones are normally aligned. Soft tissues: Mild skin irregularity is seen at the lateral aspect of the midfoot, which could represent a small ulcer. No adjacent fluid collection or significant focal edema is seen. There is nonspecific subcutaneous edema surrounding the foot that is most prominent at the dorsum of the forefoot. No solid enhancing mass. There is diffuse severe fatty infiltration of the intrinsic foot musculature, consistent with chronic denervation changes. Visualized flexor and extensor tendons appear intact, without tenosynovitis. The principal Lisfranc ligament appears intact. No soft tissue ganglion cysts or bursal fluid collections. Sagittal images demonstrate no evidence for plantar plate tears. IMPRESSION: 1. Suspected small soft tissue ulcer at the lateral aspect of the midfoot. No soft tissue ulcer. No MR evidence of osteomyelitis. 2. Diffuse fatty infiltration of the intrinsic foot musculature is consistent with chronic denervation changes. Dictated by: Cristofer Curtis M.D. on 05/07/2022 at 10:52 Approved by: Cristofer Curtis M.D. on 05/07/2022 at 10:57
--- NOTE | 2022-05-07 00:23 | PM.HP.1 ---
History of Present Illness History of Present Illness Date Patient Seen: 05/06/22 Time Patient Seen: 21:33 Chief complaint: Sent from [facility] Narrative: Thaddeus Ferris is 52 yr old male smoker with history of hypertension, diabetes with neuropathy, proteinuria with CKD stage 2, renal biopsy/angiogram 04/11, iron-deficiency anemia, hyperlipidemia, depression presented at the request of his primary care provider for evaluation of shortness of breath increasing over the past 2 weeks or so.? He states he is gained significant weight, has noted swelling in his abdomen and lower extremities.? He becomes short of breath when he lays flat as well as with minimal exertion.? He now become so fatigued that he is using a wheelchair.? He was evaluated earlier today and had chest x-ray suggestive of pulmonary edema with bilateral pleural effusions and significantly elevated BNP.? He was sent here for further evaluation.? The patient was unable to complete ambulation trial in ED, and was satting in the low 80s on room air and would decompensate with any movement. Presented to the ED blood pressure 148/93, HR 95, R 22, O2 saturation 88% on room air. He denies any change in medications or diet.? He is had no chest pain, abd pain, nausea, vomiting, diarrhea, urinary symptoms, changes in bowel, hematemesis, melena, hematuria, fever, body aches, chills, endorses a dry, non productive, hacking cough and congestion. Denies dizziness, lightheadedness but is profoundly weak.? He denies runny nose, sore throat, notes a wound to the right foot lateral that has been there for approximately 1 month. Patient denies any recent illness injury or trauma. Patient received 40 mg of IV Lasix in ED. Upon admit to the floor patient's shortness of breath and tachypnea has resolved. Initial admit vitals temp 97.5?, BP 157/97, HR 97, RR 22, 89% O2 saturation on room air. Currently patient's BP 143/92, HR 95, R 17, O2 saturation 93% on 2 L nasal cannula. In interviewing the patient and chart review Dr. Rocha, Dr. Saunders, and Hospital admission [facility] 03/27/2022. It appears the patient is frequently noncompliant in taking his medications. When asked I received deferring answers as to compliance. ABGs pH 7.28, pCO2 50.8, PO2 31, base excess -3. Hemoglobin 8.4, hematocrit 26.1, these are lower than the patient's baseline in chart, sodium 130, potassium 5.3, BUN 65, creatinine 1.36, glucose 484, GFR WNL, albumin 2.7, calcium 8.0, corrected calcium score 9.36, patient does not have a gap, no DKA. urine was positive for blood no culture pending, TCK 339, CK-to 8.75, initial troponin 0.021 BNP 18,000, D-dimer 1338 patient's chest CTA was negative for PE, but noted cardiomegaly with severe pulmonary edema along with related moderate to severe pleural effusions and diffuse anasarca. EKG normal sinus rhythm rate 94, with nonspecific T-wave abnormalities prolonged QT 372. Patient admitted for acute respiratory failure secondary to acute onset congestive heart failure exacerbation, with hyperkalemia, hyponatremia. Patient History Medical History (Updated 05/07/22 @ 01:01 by PAZ Espitia) CKD stage 3 due to type 2 diabetes mellitus Diabetic cataract of right eye Fracture of clavicle, left, closed History of bleeding following renal biopsy Iron deficiency anemia Surgical History (Updated 05/07/22 @ 01:01 by PAZ Espitia) History of renal angiogram Family & Social History Family History Father Diabetes mellitus Mother Diabetes mellitus Social History: household members family Prior Living Arrangements House Safety & Behavioral: Feels Safe in Current Yes Environment Been Physically Hurt or No Threatened By a Person Tobacco & Substance use: Smoking Status Current some day smoker alcohol intake never Substance Use Type does not use Meds Home Medications and Allergies Home Medications Medication Instructions Recorded Confirmed Type blood sugar diagnostic (Blood #100 ea 06/02/18 05/06/22 Rx Glucose Test strips) Glucometer Relion #1 ea 05/21/19 05/06/22 History PEN NEEDLES #100 ea 05/21/19 05/06/22 Rx aspirin 81 mg tablet,delayed 81 mg PO DAILY 07/27/19 05/06/22 History release insulin syr/ndl U100 half damien 0.5 #300 ea 09/29/19 05/06/22 Rx mL 31 gauge x 12/03 GLUCOSE TEST STRIPS #100 ea 03/21/20 05/06/22 Rx albuterol sulfate 90 mcg/actuation 1 - 2 puff inhalation Q4H PRN 05/31/21 05/06/22 Rx aerosol inhaler Shortness Of Breath Or Wheezing #8.5 grams atorvastatin 40 mg tablet 40 mg PO BEDTIME #90 tabs 05/31/21 05/06/22 Rx insulin aspart U-100 100 unit/mL 10 unit (0.1 mL) SUBCUT AC #10 mL 05/31/21 05/06/22 Rx subcutaneous solution (Novolog U-100 Insulin aspart) metformin 750 mg tablet,extended 1,500 mg PO DAILY #180 tabs 05/31/21 05/06/22 Rx release 24 hr escitalopram oxalate 20 mg tablet 20 mg PO DAILY #90 tabs 07/27/21 05/06/22 Rx bupropion HCl 150 mg 24 hr tablet, 150 mg PO QAM #30 tabs 01/31/22 05/06/22 Rx extended release cholecalciferol (vitamin D3) 1,250 1,250 mcg PO WEEKLY 05/06/22 05/06/22 History mcg (50,000 unit) capsule ferrous sulfate 325 mg (65 mg 325 mg PO DAILY 05/06/22 05/06/22 History iron) tablet (FeroSul) losartan 25 mg tablet 12.5 mg PO BID 05/06/22 05/06/22 History metolazone 2.5 mg tablet 5 mg PO DAILY 05/06/22 05/06/22 History spironolactone 25 mg tablet 25 mg PO DAILY 05/06/22 05/06/22 History tacrolimus 5 mg capsule, 5 mg PO BID 05/06/22 05/06/22 History immediate-release torsemide 100 mg tablet 100 mg PO BID 05/06/22 05/06/22 History Allergies Allergy/AdvReac Type Severity Reaction Status Date / Time No Known Drug Allergies Allergy Verified 04/10/22 13:42 Review of Systems Review of Systems Narrative: All 12 point systems reviewed with the patient and are negative except otherwise documented. Exam Vital Signs (past 8 hours): - 05/06/22 17:06 05/06/22 17:06 05/06/22 17:30 Temperature Pulse Rate 99 H Respiratory Rate Blood Pressure 158/95 H 150/93 H Pulse Oximetry 96 Oxygen Delivery Method Room Air Oxygen Flow Rate 05/06/22 17:34 05/06/22 18:00 05/06/22 18:00 Temperature Pulse Rate 101 H 95 H Respiratory Rate Blood Pressure 156/94 H Pulse Oximetry 90 L 91 Oxygen Delivery Method Oxygen Flow Rate 05/06/22 18:30 05/06/22 18:30 05/06/22 19:00 Temperature Pulse Rate 94 H Respiratory Rate Blood Pressure 160/97 H 152/103 H Pulse Oximetry 93 Oxygen Delivery Method Oxygen Flow Rate 05/06/22 19:00 05/06/22 19:30 05/06/22 19:31 Temperature Pulse Rate 94 H 95 H 96 H Respiratory Rate Blood Pressure Pulse Oximetry 91 92 Oxygen Delivery Method Oxygen Flow Rate 05/06/22 19:31 05/06/22 20:00 05/06/22 20:00 Temperature Pulse Rate 97 H Respiratory Rate Blood Pressure 164/92 H 157/97 H Pulse Oximetry 89 L Oxygen Delivery Method Oxygen Flow Rate 05/06/22 20:50 05/06/22 22:43 05/06/22 20:43 Temperature 96.8 F L Pulse Rate 95 H 95 H Respiratory Rate 17 Blood Pressure 143/91 H 143/92 H Pulse Oximetry 93 Oxygen Delivery Method Nasal Cannula Oxygen Flow Rate 2 Oxygen Delivery Method Nasal Cannula Oxygen Flow Rate 2 Narrative Exam Narrative: General: Patient is a thin, chronically-ill appearing male, who appears older than stated age, in no distress at this time. HEENT: Normocephalic, atraumatic, extraocular muscles intact, oral pharynx is clear and mucous membranes are dry. Neck is supple and symmetric, trachea is midline, no adenopathy, no thyroid enlargement, nontender, no masses palpated. very mild left JVD Chest: Breathing with no nasal flaring, retractions, tachypneic or labored. Lungs: Auscultation of all lung lau are decreased in bases, long expiratory phase, shallow breathing, diffuse crackles in bases. Cardio: regular rate and rhythm without murmur, rubs, or gallops, no carotid bruit, no cardiac pulsations present. Abdomen: Soft nontender, negative for organomegaly, or masses, edema Bowel sounds are present in all 4 quadrants hypoactive without guarding or rebound, no CVA tenderness. Musculoskeletal: Muscle tone is equal, noting diffuse wasting inappropriate for age, no deformity, crepitus, effusions, cyanosis, clubbing present. Patient has equal bilateral lower extremity tense nonpitting edema that extends from the abdomen down to the feet. Full range of motion intact radial and pedal pulses are normal. Skin: Patient has wound to the lateral side of the right foot approximately the size of a quarter, no surrounding erythema or drainage concerned there might be ulceration beneath the scab covering. Neuro: Patient is extremely sleepy during admit intake and doses off frequently during questioning though he is Alert and orientated x3, sensation to touch intact, no gross deficits noted of cranial nerves. Psych: Patient has a chronically-ill appearance, based on interview appears he is chronically noncompliant with his medications and does not verbalized concern regarding his state of health this time. mental status is normal, attitude thought context and judgment are inappropriate for situation. Objective Labs Result Diagrams: 05/06/22 17:11 05/06/22 17:11 Labs: Laboratory Results - last 24 hr 05/06/22 05/06/22 05/06/22 17:11 17:11 17:11 WBC RBC Hgb Hct MCV MCH MCHC RDW Plt Count Neut % (Auto) Lymph % (Auto) [place] % (Auto) Eos % (Auto) Baso % (Auto) Neut # (Auto) Lymph # (Auto) [place] # (Auto) Eos # (Auto) Baso # (Auto) PT INR D-Dimer 1338 H ABG pH ABG pCO2 ABG pO2 ABG HCO3 ABG Total CO2 ABG O2 Saturation ABG Base Excess Sodium Potassium Chloride Carbon Dioxide BUN Creatinine Estimated GFR BUN/Creatinine Ratio Glucose Hemoglobin A1c Lactate Calcium Magnesium Total Bilirubin Conjugated Bilirubin Unconjugated Bilirubin GGT AST ALT Alkaline Phosphatase Total Creatine Kinase CK-MB (CK-2) CK-MB (CK-2) Rel Index Troponin I NT-Pro-B Natriuret Pep Total Protein Albumin Globulin Albumin/Globulin Ratio Triglycerides Cholesterol LDL Cholesterol, Calc HDL Cholesterol Amylase Lipase Procalcitonin 0.15 TSH Urine RBC Urine WBC Ur Squamous Epith Cells Ur Renal Epithelial Cell Amorphous Sediment Urine Bacteria Granular Casts Ur Culture Indicated? SARS-CoV-2 (PCR) Negative 05/06/22 05/06/22 05/06/22 17:11 17:11 17:11 WBC 6.9 RBC 2.98 L Hgb 8.4 L Hct 26.1 L MCV 87.7 MCH 28.3 MCHC 32.3 RDW 15.5 H Plt Count 268 Neut % (Auto) 75.0 Lymph % (Auto) 14.8 L [place] % (Auto) 7.1 Eos % (Auto) 2.2 Baso % (Auto) 0.9 Neut # (Auto) 5200 Lymph # (Auto) 1000 L [place] # (Auto) 500 Eos # (Auto) 200 Baso # (Auto) 100 PT 11.6 INR 1.0 D-Dimer ABG pH ABG pCO2 ABG pO2 ABG HCO3 ABG Total CO2 ABG O2 Saturation ABG Base Excess Sodium 131 L Potassium 5.2 H Chloride 97 L Carbon Dioxide 24 BUN 61 H Creatinine 1.39 H Estimated GFR > 60 BUN/Creatinine Ratio 43.9 H Glucose 456 H Hemoglobin A1c Lactate Calcium 8.2 L Magnesium 1.6 Total Bilirubin 0.2 Conjugated Bilirubin Unconjugated Bilirubin GGT AST 27 ALT 27 Alkaline Phosphatase 331 H Total Creatine Kinase 339 H CK-MB (CK-2) 8.75 H CK-MB (CK-2) Rel Index 2.6 Troponin I 0.021 NT-Pro-B Natriuret Pep 33848 H Total Protein 7.1 Albumin 2.8 L Globulin 4.3 H Albumin/Globulin Ratio 0.7 L Triglycerides Cholesterol LDL Cholesterol, Calc HDL Cholesterol Amylase Lipase Procalcitonin TSH Urine RBC Urine WBC Ur Squamous Epith Cells Ur Renal Epithelial Cell Amorphous Sediment Urine Bacteria Granular Casts Ur Culture Indicated? SARS-CoV-2 (PCR) 05/06/22 05/06/22 05/06/22 17:11 17:11 17:11 WBC RBC Hgb Hct MCV MCH MCHC RDW Plt Count Neut % (Auto) Lymph % (Auto) [place] % (Auto) Eos % (Auto) Baso % (Auto) Neut # (Auto) Lymph # (Auto) [place] # (Auto) Eos # (Auto) Baso # (Auto) PT INR D-Dimer ABG pH ABG pCO2 ABG pO2 ABG HCO3 ABG Total CO2 ABG O2 Saturation ABG Base Excess Sodium Potassium Chloride Carbon Dioxide BUN Creatinine Estimated GFR BUN/Creatinine Ratio Glucose Hemoglobin A1c 12.0 H Lactate Calcium Magnesium Total Bilirubin 0.2 Conjugated Bilirubin 0.0 Unconjugated Bilirubin 0.1 GGT AST 31 ALT 27 Alkaline Phosphatase 328 H Total Creatine Kinase CK-MB (CK-2) CK-MB (CK-2) Rel Index Troponin I NT-Pro-B Natriuret Pep Total Protein 7.1 Albumin 2.8 L Globulin 4.3 H Albumin/Globulin Ratio 0.7 L Triglycerides 97 Cholesterol 188 LDL Cholesterol, Calc 109 H HDL Cholesterol 60 Amylase Lipase Procalcitonin TSH 6.76 H Urine RBC Urine WBC Ur Squamous Epith Cells Ur Renal Epithelial Cell Amorphous Sediment Urine Bacteria Granular Casts Ur Culture Indicated? SARS-CoV-2 (PCR) 05/06/22 05/06/22 05/06/22 17:11 17:11 17:45 WBC RBC Hgb Hct MCV MCH MCHC RDW Plt Count Neut % (Auto) Lymph % (Auto) [place] % (Auto) Eos % (Auto) Baso % (Auto) Neut # (Auto) Lymph # (Auto) [place] # (Auto) Eos # (Auto) Baso # (Auto) PT INR D-Dimer ABG pH ABG pCO2 ABG pO2 ABG HCO3 ABG Total CO2 ABG O2 Saturation ABG Base Excess Sodium Potassium Chloride Carbon Dioxide BUN Creatinine Estimated GFR BUN/Creatinine Ratio Glucose Hemoglobin A1c Lactate 0.6 L Calcium Magnesium Total Bilirubin Conjugated Bilirubin Unconjugated Bilirubin GGT 100 H AST ALT Alkaline Phosphatase Total Creatine Kinase CK-MB (CK-2) CK-MB (CK-2) Rel Index Troponin I NT-Pro-B Natriuret Pep Total Protein Albumin Globulin Albumin/Globulin Ratio Triglycerides Cholesterol LDL Cholesterol, Calc HDL Cholesterol Amylase 36 Lipase 69 Procalcitonin TSH Urine RBC 5-10/hpf H Urine WBC None seen Ur Squamous Epith Cells 1-5 /hpf Ur Renal Epithelial Cell 1-5/hpf H Amorphous Sediment 2+ Urine Bacteria None seen Granular Casts 1-5/lpf Ur Culture Indicated? Cult not indicated SARS-CoV-2 (PCR) 05/06/22 05/06/22 19:41 23:06 WBC RBC Hgb Hct MCV MCH MCHC RDW Plt Count Neut % (Auto) Lymph % (Auto) [place] % (Auto) Eos % (Auto) Baso % (Auto) Neut # (Auto) Lymph # (Auto) [place] # (Auto) Eos # (Auto) Baso # (Auto) PT INR D-Dimer ABG pH 7.28 L* ABG pCO2 50.8 H ABG pO2 31 L* ABG HCO3 24 ABG Total CO2 25 ABG O2 Saturation 51 L* ABG Base Excess -3.0 L Sodium Potassium Chloride Carbon Dioxide BUN Creatinine Estimated GFR BUN/Creatinine Ratio Glucose Hemoglobin A1c Lactate Calcium Magnesium Total Bilirubin Conjugated Bilirubin Unconjugated Bilirubin GGT AST ALT Alkaline Phosphatase Total Creatine Kinase CK-MB (CK-2) CK-MB (CK-2) Rel Index Troponin I 0.021 NT-Pro-B Natriuret Pep Total Protein Albumin Globulin Albumin/Globulin Ratio Triglycerides Cholesterol LDL Cholesterol, Calc HDL Cholesterol Amylase Lipase Procalcitonin TSH Urine RBC Urine WBC Ur Squamous Epith Cells Ur Renal Epithelial Cell Amorphous Sediment Urine Bacteria Granular Casts Ur Culture Indicated? SARS-CoV-2 (PCR) Assessment & Plan Assessment & Plan narrative: Thaddeus Ferris is 52 yr old male smoker with history of hypertension, diabetes with neuropathy, proteinuria with CKD stage 2, renal biopsy/angiogram 04/11, iron-deficiency anemia, hyperlipidemia, depression presented for worsening shortness of breath increasing over the past 2 weeks, when evaluation by his PCP found he had gained significant weight, increased edema to his abdomen and lower extremities. He had become so fatigued that he is using a wheelchair.? The patients chest x-ray suggestive of pulmonary edema with bilateral pleural effusions and significantly elevated BNP.? Patient admitted for acute respiratory failure secondary to acute onset congestive heart failure exacerbation, with hyperkalemia, hyponatremia after failing outpatient management. 1. Acute respiratory failure with hypercapnic/hypoxic (acidotic), due to congestive heart failure, acute, new onset, with pulmonary edema, acute, contributing factor patient's medication noncompliance, present on admission -Initial admit vitals temp 97.5?, BP 157/97, HR 97, RR 22, 88- 89% O2 saturation on room air. Patient is sleeping resting comfortably in bed in no acute distress, stable. - BP 143/92, HR 95, R 17, O2 saturation 93% on 2 L nasal cannula. -chart review Dr. Rocha, Dr. Saunders, and Hospital admission [facility] 03/27/2022. -ABGs pH 7.28, pCO2 50.8, PO2 31, base excess -3. - CK-to 8.75, initial troponin 0.021 BNP 18,000, D-dimer 1338 -Chest CTA was negative for PE, but noted cardiomegaly with severe pulmonary edema along with related moderate to severe pleural effusions and diffuse anasarca. -EKG normal sinus rhythm rate 94, with nonspecific T-wave abnormalities prolonged QT 372. -fluid restriction 2000 cc, low-sodium diet -ordered Mag, procalcitonin, lactate, TSH, lipid panel repeat ABGs & BNP tomorrow -sodium 130, potassium 5.3 - Monitor electrolytes -respiratory consult, DuoNebs q.4 hours, incentive spirometry -Lasix 20 mg b.i.d., prednisone 40 mg p.o. q.day -ordered stress test and echocardiogram -continue albuterol inhaler 2. Hyperglycemia, in the setting of insulin-dependent type 2 diabetes, with diabetic nephropathy with proteinuria, acute, present on admission-uncontrolled -initial glucose 484 -patient admitted under diabetic protocol, glucose checks a.c. HS -A1c ordered -patient placed on high dose sliding scale -will initiate Lantus 20 units b.i.d. -hold metformin -No gap, no DKA. -monitor for developing DKA 3. Elevated alkaline phosphate, acute, present on admission -suspect hepatobiliary, will also rule out hypertriglyceridemia- Noted abd edema -alk-phos 284 -ordered hepatic panel, amylase, lipase, GGT, Lipids -If GGT elevated will order Abd U/S 4. Diabetic foot wound, right, acute, present on admission -concerned that there may be ulceration down to the bone in the lateral right foot wound beneath the scar tissue. -wound care consult placed 5. Iron deficiency anemia, acute on chronic, present on admission -on admit hemoglobin 8.4, hematocrit 26.1, this is decreased from baseline as documented in the chart last H&H 02/02/2022 hemoglobin 10 hematocrit 29.5 -monitor patient for bleeding, U/A positive for blood -Hemoccult as needed -monitor hematology -continue ferrous sulfate -patient did have a renal biopsy and renal angiogram-on 03/28/2022 at [facility]-in which they kept him overnight due to the concern of bleeding. -due to risk of bleed holding VTE medication and ASA 6. Chronic kidney disease stage III, acute on chronic, present on admission -BUN 65, creatinine 1.36, glucose 484, GFR WNL, albumin 2.7, calcium 8.0, corrected calcium score 9.36 - in our records document a normal creatinine and GFR. -[facility] creatinine 1.6 03/27/2022 -holding spironolactone and torsemide, 7. Hyperlipidemia secondary to type 2 diabetes, chronic, present on admission -lipid panel ordered -continue Lipitor 8. Essential hypertension, acute on chronic, present on admission -initial admit BP 157/97 -continue losartan 9. Depression, chronic, present on admission -continue Lexapro and Wellbutrin Code status:Full Surrogate decision maker:Minda Ferris Mother COVCEE PCR:Negative DVT/VTE prophylaxis:Medication held due to anemia/r/o bleed- SCD's only Disposition: Patient admitted to acute care for diuresis, risk stratification, stress test and echocardiogram, evaluation of diabetic foot wound, worsening anemia rule out bleed, correction of hyperkalemia, hyponatremia, evaluation of elevated alkaline phosphate, diabetes control. I have utilized all available immediate resources to obtain, update, or review the patient's current medications. I confirmed that the patient's advanced care plan is present, Code status is documented and/or surrogate decision maker is listed in the patient's medical record. Time Spent With Patient Critical Care time: I spent a total of [] minutes of critical care time on this patient's care today; this time is exclusive of procedural time. Quality VTE Deep Vein Thrombosis/Pulmonary Embolism Present on Admission: No
--- NOTE | 2022-05-07 01:34 | DI.US.S_ITS ---
PROCEDURE: US ABDOMEN LIMITED INDICATIONS: Hepatobiliary evaluation, abdominal edema TECHNIQUE: Real-time scanning was performed of the right upper quadrant, with image documentation. COMPARISON: [facility], CT, CT ANGIO CHEST PE PROTOCOL, 05/06/2022, 19:17. [facility], CT, CT ABDOMEN PELVIS WITH CONTRAST, 03/27/2022, 17:23. FINDINGS: Liver: Upper limits of normal in size. Echogenicity is within normal limits. Gallbladder: Absent. Biliary ducts: Intrahepatic bile ducts are non-dilated. Extrahepatic bile duct caliber measures 6 mm. Normal is 6-7 mm or less in diameter, or 10 mm or less post-cholecystectomy. Pancreas: Not well seen. No ascites seen. IMPRESSION: No ascites seen. Post cholecystectomy. Dictated by: Cristhian Gonzalez M.D. on 05/07/2022 at 8:51 Approved by: Cristhian Gonzalez M.D. on 05/07/2022 at 8:54
--- NOTE | 2022-05-07 01:38 | PC.NURSE ---
Addendum entered by Jean Rooney R.N. 05/07/22 01:41: R lateral side of foot. Black and dried unstageable pressure sore. Pt states its from hitting it on something. Original Note: 3+ pitting edema RLE, 2+ pitting edema LLE. scabs and wounds throughout BLE.
--- NOTE | 2022-05-07 02:52 | PC.NURSE ---
Addendum entered by Jean Rooney R.N. 05/07/22 06:34: Pt had not urinated since ED, bladder scanner showed 950 ml. Pt stated ill go in 10 minutes. Rn educated pt that he needs to urinate or a dewey will need to be placed, pt urinated 800ml. Further education was done advising pt to urinate when needing to, as he has lots of fluid in his body that needs to come out. Pt also states that he wears briefs at home as he uncontrolled bowel movements because he takes amodium everyday. Pt denied urinary retention at home. Original Note: Pt A/Ox4, stating SOB, unable to lie down flat. RN asked what made pt come to hospital after having these sx for 2 weeks, pt stated my mom. Blood sugar was 417, Pt states that is normal for me, 10 units of humalog given. RLE +3 pitting edema, LLE +2 pitting edema along w/ pressure ulcer to lateral side of R foot. Pictures taken in previous note. Wound nurse consult ordered.
[2022-05-07 05:52] LABS: Add Manual Diff / Slide Review NO; Basophils Absolute Auto 0 /uL (0-100); Basophils Percent Auto 0.8 % (0-2); Eosinophils Absolute Auto 0 /uL (0-450); Eosinophils Percent Auto 0.3 % (2-4); Hematocrit 23.8 % (41-53); Hemoglobin 7.9 g/dL (13.5-17.5); Lymphocytes Absolute Auto 400 /uL (1100-4500); Lymphocytes Percent Auto 6.5 % (25-40); Mean Corpuscular HGB Conc 33.1 % (30-36); Mean Corpuscular Hemoglobin 28.8 PG (26-34); Mean Corpuscular Volume 86.9 fL (80-100); Monocytes Absolute Auto 100 /uL (0-900); Monocytes Percent Auto 1.8 % (3-14); Neutrophils Absolute Auto 5000 /uL (1500-7000); Neutrophils Percent Auto 90.6 % (50-75); Platelet Count 233 X10^3/uL (150-400); Red Blood Cell Count 2.74 X10^6/uL (4.5-5.9); Red Cell Distribution Width 15.4 % (11.6-14.8); White Blood Cell Count 5.6 X10^3/uL (4.5-11.0)
[2022-05-07 06:01] LABS: Adenovirus Detected (Not Detect); B. parapertussis Not Detected (Not Detecte); Bordetella pertussis Not Detected (Not Detecte); Chlamydophila pneumoniae Not Detected (Not Detect); Coronavirus 229E Not Detected (Not Detect); Coronavirus HKU1 Not Detected (Not Detect); Coronavirus NL 63 Not Detected (Not Detect); Coronavirus OC43 Not Detected (Not Detect); Human Metapneumovirus Not Detected (Not Detect); Human Rhinovirus/Enterovirus Not Detected (Not Detect); Influenza A Not Detected (Not Detect); Influenza B Not Detected (Not Detect); Mycoplasma pneumoniae Not Detected (Not Detect); Parainfluenza Virus 1 Not Detected (Not Detect); Parainfluenza Virus 2 Not Detected (Not Detect); Parainfluenza Virus 3 Not Detected (Not Detect); Parainfluenza Virus 4 Not Detected (Not Detect); Respiratory Syncytial Virus Not Detected (Not Detect); SARS- CoV-2 Not Detected (Not Detecte)
[2022-05-07 06:02] LABS: Alanine Aminotransferase 24 IU/L (<50); Albumin 2.7 g/dL (3.5-5.0); Albumin Globulin Ratio 0.7 (1.0-2.8); Alkaline Phosphatase 259 U/L (38-126); Aspartate Aminotransferase 21 IU/L (17-59); BUN Creatinine Ratio 45.3 (6-22); Bilirubin Total 0.2 mg/dL (0.2-1.3); Blood Urea Nitrogen 63 mg/dL (9-20); Calcium 8.3 mg/dL (8.4-10.2); Carbon Dioxide 23 mmol/L (22-32); Chloride 101 mmol/L (98-107); Estimated Glomerular Filt Rate > 60 mL/min (>60); Globulin 4.1 g/dL (1.7-4.1); Glucose 244 mg/dL (70-100); HEMOLYSIS < 15 (0-50); Magnesium 1.6 mg/dL (1.6-2.3); Sodium 131 mmol/L (137-145); Total Protein 6.8 g/dL (6.3-8.2)
[2022-05-07 06:09] LABS: Potassium 5.9 mmol/L (3.4-5.1)
[2022-05-07 06:12] LABS: NT-proBNP (BNP-Adult 18+) 16700 pg/mL (<125)
[2022-05-07 06:14] LABS: Troponin I 0.024 ng/mL (0.01-0.034)
[2022-05-07] MEDS: buPROPion XL 150 MG TAB PO (07:51)
[2022-05-07] MEDS: LEVOTHYROXINE 25 MCG TABLET 12.5 MCG PO (07:51)
[2022-05-07] MEDS: predniSONE 20 MG TABLET 40 MG PO (07:52)
[2022-05-07] MEDS: FUROSEMIDE 100 MG in SODIUM CHLORIDE 0.9% 50 ML IV (07:52)
[2022-05-07] MEDS: INSULIN LISPRO 100 UNIT/ML 3ML VIAL SUBCUT ×4 (07:54→20:39)
[2022-05-07] MEDS: FERROUS SULFATE 325 MG TABLET PO (08:42)
[2022-05-07] MEDS: SODIUM CHLORIDE 0.9% FLUSH 10 ML IV ×2 (08:42→20:42)
[2022-05-07] MEDS: ESCITALOPRAM 10 MG TABLET 20 MG PO (08:42)
[2022-05-07] MEDS: LOSARTAN 25 MG TABLET 12.5 MG PO ×2 (08:43→20:40)
[2022-05-07] MEDS: INSULIN GLARGINE 100 UNIT/ML 3ML PEN 20 UNIT SUBCUT ×2 (09:48→20:40)
[2022-05-07] MEDS: TAMSULOSIN 0.4 MG CAPSULE PO ×2 (10:11→11:01)
--- NOTE | 2022-05-07 11:44 | CM.DPNOTE ---
Addendum entered by Leanne Rivas R.N. 05/07/22 13:48: DCP attempted to contact pt for the third time by phone. Pt did not answer. DCP cannot enter room due to droplet precautions. RN has put phone next to pt. Will attempt at a later time. Leanne Rivas RN/CARMENCITA Original Note: DCP Note: Attempted to meet with pt via phone but pt was on the way to stress test. DCP to try again later this afternoon. Leanne Rivas RN/CORONAP
--- NOTE | 2022-05-07 11:45 | PM.PN.1 ---
Subjective Subjective Interval history: Thaddeus Ferris is 52 yr old male smoker with history of hypertension, diabetes with neuropathy, proteinuria with CKD stage 2, renal biopsy/angiogram 04/11, iron-deficiency anemia,? hyperlipidemia, depression presented at the request of his primary care provider for evaluation of shortness of breath increasing over the past 2 weeks or so.? He states he is gained significant weight, has noted swelling in his abdomen and lower extremities. Receives tacrolimus medication to help with prevention of nephrotic syndrome episodes, this is prescribed by his territory representative. Patient feeling better but still some shortness of breath requiring O2 supplementation. Legs are generally weak when trying to mobilize. Exam Vital Signs (past 8 hours): - 05/07/22 04:00 05/07/22 08:00 05/07/22 08:43 Temperature 97.8 F 97.5 F L Pulse Rate 91 H 93 H 93 H Respiratory Rate 18 20 Blood Pressure 138/95 H 134/89 134/89 Pulse Oximetry 97 95 Oxygen Flow Rate 2 2 Oxygen Delivery Method Nasal Cannula Oxygen Flow Rate 2 Narrative Exam Narrative: General:? Pale and thin in no acute medical distress. HEENT:? Normocephalic, atraumatic, extraocular muscles intact. Neck is supple and symmetric, trachea is midline, no adenopathy, no thyroid enlargement, nontender, no masses palpated.? very mild left JVD Chest: Breathing with no nasal flaring, retractions, tachypneic or labored. Lungs:? Auscultation of all lung lau are decreased in bases. Some crackles at the bases. Cardio:? regular rate and rhythm without murmur, rubs, or gallops, no carotid bruit, no cardiac pulsations present. Abdomen:? Soft nontender, negative for organomegaly, or masses, edema Bowel sounds are present in all 4 quadrants hypoactive without guarding or rebound, no CVA tenderness. Musculoskeletal:? Muscle tone is? equal, diffuse wasting present.? Patient has equal bilateral lower extremity tense nonpitting edema that extends from the abdomen down to the feet which has decreased from admission. Full range of motion intact radial and pedal pulses are normal. Skin:? Patient has wound to the lateral side of the right foot approximately the size of a quarter, scab covering. Neuro:? Alert and orientated x3, sensation to touch intact, no gross deficits noted of cranial nerves. Psych:? Patient has a chronically-ill appearance. Has a very flat affect. Objective Labs Result Diagrams: 05/07/22 05:42 05/07/22 05:42 Labs: Laboratory Results - last 24 hr 05/06/22 05/06/22 05/06/22 17:11 17:11 17:11 WBC RBC Hgb Hct MCV MCH MCHC RDW Plt Count Neut % (Auto) Lymph % (Auto) [place] % (Auto) Eos % (Auto) Baso % (Auto) Neut # (Auto) Lymph # (Auto) [place] # (Auto) Eos # (Auto) Baso # (Auto) PT INR D-Dimer 1338 H ABG pH ABG pCO2 ABG pO2 ABG HCO3 ABG Total CO2 ABG O2 Saturation ABG Base Excess Sodium Potassium Chloride Carbon Dioxide BUN Creatinine Estimated GFR BUN/Creatinine Ratio Glucose Hemoglobin A1c Lactate Calcium Magnesium Total Bilirubin Conjugated Bilirubin Unconjugated Bilirubin GGT AST ALT Alkaline Phosphatase Total Creatine Kinase CK-MB (CK-2) CK-MB (CK-2) Rel Index Troponin I NT-Pro-B Natriuret Pep Total Protein Albumin Globulin Albumin/Globulin Ratio Triglycerides Cholesterol LDL Cholesterol, Calc HDL Cholesterol Amylase Lipase Procalcitonin 0.15 TSH Free T4 Urine RBC Urine WBC Ur Squamous Epith Cells Ur Renal Epithelial Cell Amorphous Sediment Urine Bacteria Granular Casts Ur Culture Indicated? Chlamy pneumoniae PCR Adenovirus (PCR) B. pertussis DNA (PCR) B.parapertussis DNA PCR Coronavirus OC43 (PCR) Coronavirus HKU1 (PCR) Coronavirus 229E (PCR) SARS-CoV-2 (PCR) Negative Coronavirus NL63 (PCR) Human Metapneumovir PCR Influenza Type A (PCR) Influenza Type B (PCR) M. pneumoniae (PCR) Parainfluenza 1 (PCR) Parainfluenza 2 (PCR) Parainfluenza 3 (PCR) Parainfluenza 4 (PCR) RSV (PCR) Entero/Rhino (PCR) 05/06/22 05/06/22 05/06/22 17:11 17:11 17:11 WBC 6.9 RBC 2.98 L Hgb 8.4 L Hct 26.1 L MCV 87.7 MCH 28.3 MCHC 32.3 RDW 15.5 H Plt Count 268 Neut % (Auto) 75.0 Lymph % (Auto) 14.8 L [place] % (Auto) 7.1 Eos % (Auto) 2.2 Baso % (Auto) 0.9 Neut # (Auto) 5200 Lymph # (Auto) 1000 L [place] # (Auto) 500 Eos # (Auto) 200 Baso # (Auto) 100 PT 11.6 INR 1.0 D-Dimer ABG pH ABG pCO2 ABG pO2 ABG HCO3 ABG Total CO2 ABG O2 Saturation ABG Base Excess Sodium 131 L Potassium 5.2 H Chloride 97 L Carbon Dioxide 24 BUN 61 H Creatinine 1.39 H Estimated GFR > 60 BUN/Creatinine Ratio 43.9 H Glucose 456 H Hemoglobin A1c Lactate Calcium 8.2 L Magnesium 1.6 Total Bilirubin 0.2 Conjugated Bilirubin Unconjugated Bilirubin GGT AST 27 ALT 27 Alkaline Phosphatase 331 H Total Creatine Kinase 339 H CK-MB (CK-2) 8.75 H CK-MB (CK-2) Rel Index 2.6 Troponin I 0.021 NT-Pro-B Natriuret Pep 65686 H Total Protein 7.1 Albumin 2.8 L Globulin 4.3 H Albumin/Globulin Ratio 0.7 L Triglycerides Cholesterol LDL Cholesterol, Calc HDL Cholesterol Amylase Lipase Procalcitonin TSH Free T4 Urine RBC Urine WBC Ur Squamous Epith Cells Ur Renal Epithelial Cell Amorphous Sediment Urine Bacteria Granular Casts Ur Culture Indicated? Chlamy pneumoniae PCR Adenovirus (PCR) B. pertussis DNA (PCR) B.parapertussis DNA PCR Coronavirus OC43 (PCR) Coronavirus HKU1 (PCR) Coronavirus 229E (PCR) SARS-CoV-2 (PCR) Coronavirus NL63 (PCR) Human Metapneumovir PCR Influenza Type A (PCR) Influenza Type B (PCR) M. pneumoniae (PCR) Parainfluenza 1 (PCR) Parainfluenza 2 (PCR) Parainfluenza 3 (PCR) Parainfluenza 4 (PCR) RSV (PCR) Entero/Rhino (PCR) 05/06/22 05/06/22 05/06/22 17:11 17:11 17:11 WBC RBC Hgb Hct MCV MCH MCHC RDW Plt Count Neut % (Auto) Lymph % (Auto) [place] % (Auto) Eos % (Auto) Baso % (Auto) Neut # (Auto) Lymph # (Auto) [place] # (Auto) Eos # (Auto) Baso # (Auto) PT INR D-Dimer ABG pH ABG pCO2 ABG pO2 ABG HCO3 ABG Total CO2 ABG O2 Saturation ABG Base Excess Sodium Potassium Chloride Carbon Dioxide BUN Creatinine Estimated GFR BUN/Creatinine Ratio Glucose Hemoglobin A1c 12.0 H Lactate Calcium Magnesium Total Bilirubin 0.2 Conjugated Bilirubin 0.0 Unconjugated Bilirubin 0.1 GGT AST 31 ALT 27 Alkaline Phosphatase 328 H Total Creatine Kinase CK-MB (CK-2) CK-MB (CK-2) Rel Index Troponin I NT-Pro-B Natriuret Pep Total Protein 7.1 Albumin 2.8 L Globulin 4.3 H Albumin/Globulin Ratio 0.7 L Triglycerides 97 Cholesterol 188 LDL Cholesterol, Calc 109 H HDL Cholesterol 60 Amylase Lipase Procalcitonin TSH 6.76 H Free T4 Urine RBC Urine WBC Ur Squamous Epith Cells Ur Renal Epithelial Cell Amorphous Sediment Urine Bacteria Granular Casts Ur Culture Indicated? Chlamy pneumoniae PCR Adenovirus (PCR) B. pertussis DNA (PCR) B.parapertussis DNA PCR Coronavirus OC43 (PCR) Coronavirus HKU1 (PCR) Coronavirus 229E (PCR) SARS-CoV-2 (PCR) Coronavirus NL63 (PCR) Human Metapneumovir PCR Influenza Type A (PCR) Influenza Type B (PCR) M. pneumoniae (PCR) Parainfluenza 1 (PCR) Parainfluenza 2 (PCR) Parainfluenza 3 (PCR) Parainfluenza 4 (PCR) RSV (PCR) Entero/Rhino (PCR) 05/06/22 05/06/22 05/06/22 17:11 17:11 17:45 WBC RBC Hgb Hct MCV MCH MCHC RDW Plt Count Neut % (Auto) Lymph % (Auto) [place] % (Auto) Eos % (Auto) Baso % (Auto) Neut # (Auto) Lymph # (Auto) [place] # (Auto) Eos # (Auto) Baso # (Auto) PT INR D-Dimer ABG pH ABG pCO2 ABG pO2 ABG HCO3 ABG Total CO2 ABG O2 Saturation ABG Base Excess Sodium Potassium Chloride Carbon Dioxide BUN Creatinine Estimated GFR BUN/Creatinine Ratio Glucose Hemoglobin A1c Lactate 0.6 L Calcium Magnesium Total Bilirubin Conjugated Bilirubin Unconjugated Bilirubin GGT 100 H AST ALT Alkaline Phosphatase Total Creatine Kinase CK-MB (CK-2) CK-MB (CK-2) Rel Index Troponin I NT-Pro-B Natriuret Pep Total Protein Albumin Globulin Albumin/Globulin Ratio Triglycerides Cholesterol LDL Cholesterol, Calc HDL Cholesterol Amylase 36 Lipase 69 Procalcitonin TSH Free T4 Urine RBC 5-10/hpf H Urine WBC None seen Ur Squamous Epith Cells 1-5 /hpf Ur Renal Epithelial Cell 1-5/hpf H Amorphous Sediment 2+ Urine Bacteria None seen Granular Casts 1-5/lpf Ur Culture Indicated? Cult not indicated Chlamy pneumoniae PCR Adenovirus (PCR) B. pertussis DNA (PCR) B.parapertussis DNA PCR Coronavirus OC43 (PCR) Coronavirus HKU1 (PCR) Coronavirus 229E (PCR) SARS-CoV-2 (PCR) Coronavirus NL63 (PCR) Human Metapneumovir PCR Influenza Type A (PCR) Influenza Type B (PCR) M. pneumoniae (PCR) Parainfluenza 1 (PCR) Parainfluenza 2 (PCR) Parainfluenza 3 (PCR) Parainfluenza 4 (PCR) RSV (PCR) Entero/Rhino (PCR) 05/06/22 05/06/22 05/06/22 19:41 23:06 23:06 WBC RBC Hgb Hct MCV MCH MCHC RDW Plt Count Neut % (Auto) Lymph % (Auto) [place] % (Auto) Eos % (Auto) Baso % (Auto) Neut # (Auto) Lymph # (Auto) [place] # (Auto) Eos # (Auto) Baso # (Auto) PT INR D-Dimer ABG pH 7.28 L* ABG pCO2 50.8 H ABG pO2 31 L* ABG HCO3 24 ABG Total CO2 25 ABG O2 Saturation 51 L* ABG Base Excess -3.0 L Sodium Potassium Chloride Carbon Dioxide BUN Creatinine Estimated GFR BUN/Creatinine Ratio Glucose Hemoglobin A1c Lactate Calcium Magnesium Total Bilirubin Conjugated Bilirubin Unconjugated Bilirubin GGT AST ALT Alkaline Phosphatase Total Creatine Kinase CK-MB (CK-2) CK-MB (CK-2) Rel Index Troponin I 0.021 NT-Pro-B Natriuret Pep Total Protein Albumin Globulin Albumin/Globulin Ratio Triglycerides Cholesterol LDL Cholesterol, Calc HDL Cholesterol Amylase Lipase Procalcitonin TSH 6.80 H Free T4 1.50 Urine RBC Urine WBC Ur Squamous Epith Cells Ur Renal Epithelial Cell Amorphous Sediment Urine Bacteria Granular Casts Ur Culture Indicated? Chlamy pneumoniae PCR Adenovirus (PCR) B. pertussis DNA (PCR) B.parapertussis DNA PCR Coronavirus OC43 (PCR) Coronavirus HKU1 (PCR) Coronavirus 229E (PCR) SARS-CoV-2 (PCR) Coronavirus NL63 (PCR) Human Metapneumovir PCR Influenza Type A (PCR) Influenza Type B (PCR) M. pneumoniae (PCR) Parainfluenza 1 (PCR) Parainfluenza 2 (PCR) Parainfluenza 3 (PCR) Parainfluenza 4 (PCR) RSV (PCR) Entero/Rhino (PCR) 05/07/22 05/07/22 05/07/22 05:00 05:42 05:42 WBC 5.6 RBC 2.74 L Hgb 7.9 L Hct 23.8 L MCV 86.9 MCH 28.8 MCHC 33.1 RDW 15.4 H Plt Count 233 Neut % (Auto) 90.6 H Lymph % (Auto) 6.5 L [place] % (Auto) 1.8 L Eos % (Auto) 0.3 L Baso % (Auto) 0.8 Neut # (Auto) 5000 Lymph # (Auto) 400 L [place] # (Auto) 100 Eos # (Auto) 0 Baso # (Auto) 0 PT 12.0 INR 1.0 D-Dimer ABG pH ABG pCO2 ABG pO2 ABG HCO3 ABG Total CO2 ABG O2 Saturation ABG Base Excess Sodium Potassium Chloride Carbon Dioxide BUN Creatinine Estimated GFR BUN/Creatinine Ratio Glucose Hemoglobin A1c Lactate Calcium Magnesium Total Bilirubin Conjugated Bilirubin Unconjugated Bilirubin GGT AST ALT Alkaline Phosphatase Total Creatine Kinase CK-MB (CK-2) CK-MB (CK-2) Rel Index Troponin I NT-Pro-B Natriuret Pep Total Protein Albumin Globulin Albumin/Globulin Ratio Triglycerides Cholesterol LDL Cholesterol, Calc HDL Cholesterol Amylase Lipase Procalcitonin TSH Free T4 Urine RBC Urine WBC Ur Squamous Epith Cells Ur Renal Epithelial Cell Amorphous Sediment Urine Bacteria Granular Casts Ur Culture Indicated? Chlamy pneumoniae PCR Not detected Adenovirus (PCR) Detected H B. pertussis DNA (PCR) Not detected B.parapertussis DNA PCR Not detected Coronavirus OC43 (PCR) Not detected Coronavirus HKU1 (PCR) Not detected Coronavirus 229E (PCR) Not detected SARS-CoV-2 (PCR) Not detected Coronavirus NL63 (PCR) Not detected Human Metapneumovir PCR Not detected Influenza Type A (PCR) Not detected Influenza Type B (PCR) Not detected M. pneumoniae (PCR) Not detected Parainfluenza 1 (PCR) Not detected Parainfluenza 2 (PCR) Not detected Parainfluenza 3 (PCR) Not detected Parainfluenza 4 (PCR) Not detected RSV (PCR) Not detected Entero/Rhino (PCR) Not detected 05/07/22 05/07/22 05:42 05:42 WBC RBC Hgb Hct MCV MCH MCHC RDW Plt Count Neut % (Auto) Lymph % (Auto) [place] % (Auto) Eos % (Auto) Baso % (Auto) Neut # (Auto) Lymph # (Auto) [place] # (Auto) Eos # (Auto) Baso # (Auto) PT INR D-Dimer ABG pH ABG pCO2 ABG pO2 ABG HCO3 ABG Total CO2 ABG O2 Saturation ABG Base Excess Sodium 131 L Potassium 5.9 H Chloride 101 Carbon Dioxide 23 BUN 63 H Creatinine 1.39 H Estimated GFR > 60 BUN/Creatinine Ratio 45.3 H Glucose 244 H D Hemoglobin A1c Lactate Calcium 8.3 L Magnesium 1.6 Total Bilirubin 0.2 Conjugated Bilirubin Unconjugated Bilirubin GGT AST 21 ALT 24 Alkaline Phosphatase 259 H Total Creatine Kinase CK-MB (CK-2) CK-MB (CK-2) Rel Index Troponin I 0.024 NT-Pro-B Natriuret Pep 69813 H Total Protein 6.8 Albumin 2.7 L Globulin 4.1 Albumin/Globulin Ratio 0.7 L Triglycerides Cholesterol LDL Cholesterol, Calc HDL Cholesterol Amylase Lipase Procalcitonin TSH Free T4 Urine RBC Urine WBC Ur Squamous Epith Cells Ur Renal Epithelial Cell Amorphous Sediment Urine Bacteria Granular Casts Ur Culture Indicated? Chlamy pneumoniae PCR Adenovirus (PCR) B. pertussis DNA (PCR) B.parapertussis DNA PCR Coronavirus OC43 (PCR) Coronavirus HKU1 (PCR) Coronavirus 229E (PCR) SARS-CoV-2 (PCR) Coronavirus NL63 (PCR) Human Metapneumovir PCR Influenza Type A (PCR) Influenza Type B (PCR) M. pneumoniae (PCR) Parainfluenza 1 (PCR) Parainfluenza 2 (PCR) Parainfluenza 3 (PCR) Parainfluenza 4 (PCR) RSV (PCR) Entero/Rhino (PCR) [facility] Medical History (Updated 05/07/22 @ 01:01 by REG Espitia) CKD stage 3 due to type 2 diabetes mellitus Diabetic cataract of right eye Fracture of clavicle, left, closed History of bleeding following renal biopsy Iron deficiency anemia Surgical History (Updated 05/07/22 @ 01:01 by EDDIE Espitia-CHANDANA) History of renal angiogram Family History Father Diabetes mellitus Mother Diabetes mellitus Social History household members: family Smoking Status: Current some day smoker alcohol intake: never Assessment & Plan Assessment & Plan narrative: 1. Acute respiratory failure with hypercapnic/hypoxic (acidotic), due to congestive heart failure, acute, new onset, with pulmonary edema, acute, contributing factor patient's medication noncompliance, present on admission - BP 134/89, HR 93, R 20, O2 saturation 92% on 2 L nasal cannula. - CK-to 8.75, initial troponin 0.021 BNP 18,000, D-dimer 1338, BNP decreasing to 16,700 today, continue to follow -Chest CTA was negative for PE, but noted cardiomegaly with severe pulmonary edema along with related moderate to severe pleural effusions and diffuse anasarca.? -EKG normal sinus rhythm rate 94, with nonspecific T-wave abnormalities prolonged QT 372 on admission. -fluid restriction 2000 cc, low-sodium diet, continue -persistent elevated potassium. Continue to follow -respiratory consult, DuoNebs q.4 hours, incentive spirometry -Lasix 20 mg b.i.d. on admission and switched to intravenous Lasix, continue - prednisone 40 mg p.o. q.day -ordered stress test and echocardiogram-results pending -continue albuterol inhaler 2. Hyperglycemia, in the setting of insulin-dependent type 2 diabetes, with diabetic nephropathy with proteinuria, acute, present on admission-uncontrolled -initial glucose 484 -patient admitted under diabetic protocol, glucose checks a.c. HS -A1c ordered -12% -patient placed on high dose sliding scale -will initiate Lantus 20 units b.i.d. -hold metformin -monitor for developing DKA 3. Elevated alkaline phosphate, acute, present on admission -suspect hepatobiliary, also ruled out hypertriglyceridemia- Noted abd edema, abdominal ultrasound ruled out ascites 4. Diabetic foot wound, right, acute, present on admission -concerned that there may be ulceration down to the bone in the lateral right foot wound beneath the scar tissue, MRI foot shows no signs of osteomyelitis -wound care consult placed 5. Iron deficiency anemia, acute on chronic, present on admission -on admit hemoglobin 8.4, hematocrit 26.1, this is decreased from baseline as documented in the chart last H&H 02/02/2022 hemoglobin 10 hematocrit 29.5. This continues to decrease and needs to be followed. Will assess iron to see of iron infusion is appropriate. -monitor patient for bleeding, U/A positive for blood -Hemoccult as needed -continue ferrous sulfate -patient did have a renal biopsy and renal angiogram-on 03/28/2022 at [facility]-in which they kept him overnight due to the concern of bleeding. -due to risk of bleed holding VTE medication and ASA 6. Chronic kidney disease stage III, acute on chronic, present on admission -BUN 65, creatinine 1.36, glucose 484, GFR WNL, albumin 2.7, calcium 8.0, corrected calcium score 9.36 - in our records document a normal creatinine and GFR. -[facility] creatinine 1.6 03/27/2022 -holding spironolactone and torsemide, 7. Hyperlipidemia secondary to type 2 diabetes, chronic, present on admission -lipid panel ordered-reasonable control based on values today -continue Lipitor 8. Essential hypertension, acute on chronic, present on admission -initial admit BP 157/97, blood pressure is stabilized to 134/89 -continue losartan 9. Depression, chronic, present on admission -continue Lexapro and Wellbutrin 10. Positive adenovirus by PCR, consistent with patient appearing ill. 11. Elevated TSH but normal free T4, will repeat TSH and do free T3 or further evaluation tomorrow. Code status:Full Surrogate decision maker:Minda Ferris Mother COVID PCR:Negative DVT/VTE prophylaxis:Medication held due to anemia/r/o bleed- SCD's only Time Spent With Patient Critical Care time: I spent a total of [] minutes of critical care time on this patient's care today; this time is exclusive of procedural time. Quality VTE Deep Vein Thrombosis/Pulmonary Embolism Present on Admission: No
[2022-05-07] MEDS: TACROLIMUS 0.5 MG CAPSULE 5 MG PO ×2 (13:21→20:41)
--- NOTE | 2022-05-07 13:54 | CM.DANOTE ---
DCP Assessment: Payor: [facility] & Medicaid PCP: Rashi Andrade Pt is a 52 y.o. M who presented to the ER following a request from his PCP. Pt having increased shortness of breath over the past 2 weeks. It was found on work up that pt has newly discovered CHF. Stress test and echocardiogram ordered. Pt was admitted to the acute care unit for further work up and management of his symptoms. DCP attempted to meet with the pt but was unable to due to contact precautions and unable to reach him by phone. Attempted to contact pt mother (emergency contact) however, the phone number is not in service). DCP spoke with the RN and per RN, pt lives with his mom. RN states that pt is weak and would not be able to work with PT today due to his current weakness. RN states that the mom has expressed that this has been the worst it has been. RN stating pt might need home health but DCP will continue to follow and work with team on coordination of care. P: Unclear needs at this time. Will continue to work with healthcare team on discharge needs. Leanne Rivas RN/CARMENCITA Discharge Planning/Care Management CM Discharge Assessment Start: 05/07/22 13:50 Freq: Status: Active Protocol: Document 05/07/22 13:51 CARLOS A (Rec: 05/07/22 13:51 CARLOS A [id number]) Discharge Planning Assessment Assigned Plastics Design Engineer Leanne Rivas RN/CARMENCITA Advance Directives? No History Provided By Medical Record Prior Living Arrangements House Household Members family Discharge Plan Home Transportation Arrangement Family POV Referrals Initiated None needed Additional Comment At this time. Whiteboard Updated in Patient Room with No name and ext. # of Plastics Design Engineer Comment Unable to enter room due to droplet precautions. Review Status In Process Please Provide Date Initial DC 05/07/22 Assessment Was Performed Next Review Type Continued Stay Review
[2022-05-07 15:52] LABS: BUN Creatinine Ratio 45.7 (6-22); Blood Urea Nitrogen 63 mg/dL (9-20); Calcium 8.5 mg/dL (8.4-10.2); Carbon Dioxide 21 mmol/L (22-32); Chloride 102 mmol/L (98-107); Estimated Glomerular Filt Rate > 60 mL/min (>60); Glucose 252 mg/dL (70-100); HEMOLYSIS < 15 (0-50); Sodium 132 mmol/L (137-145)
[2022-05-07 15:59] LABS: Potassium 5.5 mmol/L (3.4-5.1)
--- NOTE | 2022-05-07 16:11 | DIET.CONS2 ---
Dietary Inpatient Consultation Note Admission Date: 05/06/2022 20:20 Pt too wiped out from the little movement he did today to participate in nutrition assessment. Per nursing pts BG >200 despite NPO status this morning, jumped to 244 after carb consistent lunch. Pt with edema from feet to torso. Will meet c pt Wed AM to review DM education. Diet: 05/06/22 Breakfast Fluid Restriction Diet Diet Modifications: low sodium, carb consistent 60g Total fluid amount: 2,000 Amount allotted to patient trays: 100 Free water included in total: Yes Fluid in addition to trays: 6304-1424 amount: 850 [id number] amount: 850 Electronically Signed by: Loni Ferris 05/07/22 16:11 Clinical Dietitian [address] [address]
--- NOTE | 2022-05-07 19:11 | DI.NM.S_ITS ---
DATE OF SERVICE: 05/07/2022 PROCEDURE: Pharmacological perfusion study. INDICATION: Congestive heart failure with underlying hypertension, diabetes with diabetic neuropathy, CKD, iron-deficiency anemia, hyperlipidemia. RADIOPHARMACEUTICAL: 26.2 millicurie technetium-99m Myoview IV was injected at stress and 9.2 millicurie technetium-99m Myoview IV was injected at rest. CARDIAC STRESS: The patient underwent IV Lexiscan perfusion study under the supervision of an attending staff as per standard protocol. Baseline rhythm was sinus with mild sinus tachycardia. During stress, there were some nonspecific ST -T changes. No significant arrhythmias seen. No chest pain. The patient has some shortness of breath. RAW DATA: There is increased subdiaphragmatic activity. The patient's weight is 190 pounds. GATED STUDY: Stress LV ejection fraction 31 percent with dilated LV. Stress end-diastolic volume 216 mL. Lung/heart ratio 0.37, which is within normal limits. TID ratio 1.01, which is within normal limits. MYOCARDIAL PERFUSION SCAN: Please note, that the patient does not have any stress prone images. Stress supine and resting supine images were compared to each other. There appears to be predominantly fixed moderate to large size, moderate to severely decreased perfusion of inferior wall extending into the base to mid inferolateral wall, as well as inferoapex. In addition to that, there is also moderate size, mild to moderately decreased perfusion of base to mid anterior wall and distal anteroseptum. No reversible ischemia. CONCLUSION: This is an abnormal myocardial perfusion study, consistent with moderate to large size infarction of inferior wall extending into the inferoapex and base to mid inferolateral wall, as well as infarction of base to mid anterior wall and distal anteroseptum. Dilated left ventricle. The stress left ventricular ejection fraction 31 percent with diffuse global hypokinesis. The patient does not have any prone images. Hence, cannot rule out the possibility of tissue attenuation artifact causing inferior wall defect. However, based on dilated left ventricle, poor left ventricular function and risk factors for coronary artery disease, multivessel coronary artery disease possibility appears to be real. Correlate clinically. Findings were discussed with the hospitalist team. Thaddeus Ferris Jr - Venkata/hira doc#: [id number]/job#: [id number] dd: 05/07/2022 16:48:00 dt: 05/07/2022 18:50:00 DICTATING MD/COPIES TO: Juan Jose Bradford MD COPIES MNE: AMELIA;
[2022-05-07] MEDS: ATORVASTATIN 20 MG TABLET 40 MG PO (20:40)
[2022-05-08] VITALS (7 sets, daily range): BP systolic 125–146; BP diastolic 87–96; PULSE 90–99; RESP 17–22; TEMP 36.1–37.1; O2SAT 94–97
--- NOTE | 2022-05-08 00:48 | PC.NURSE ---
Patient is alert and oriented with flat affect. Breath sounds diminished throughout. Denies SOB at rest but reports SOB with any exertion and is unable to lie flat. On oxygen at 2.5L/min per NC with sat of 91%. HRR but tachy at 102 bpm and elevated BP of 142/92; telemetry reading was ST. Denies nausea. BT hypoactive but reports having had 2 BM's earlier today. Has been continent of urine; denies dysuria. Non pitting edema present waist down to toes. Chronic neuropathy in bilateral LE from knee down. Is able to move himself in bed. Up to BSC with 2 assists due to weakness. Wearing bilateral calf SCD's. Denies pain. Fall risk score is high and bed alarm is activated.
[2022-05-08] MEDS: LEVOTHYROXINE 25 MCG TABLET 12.5 MCG PO (05:47)
[2022-05-08 06:18] LABS: Add Manual Diff / Slide Review NO; Basophils Absolute Auto 0 /uL (0-100); Basophils Percent Auto 0.6 % (0-2); Eosinophils Absolute Auto 0 /uL (0-450); Eosinophils Percent Auto 0.1 % (2-4); Hematocrit 24.4 % (41-53); Hemoglobin 8.1 g/dL (13.5-17.5); Lymphocytes Absolute Auto 1100 /uL (1100-4500); Mean Corpuscular HGB Conc 33.2 % (30-36); Mean Corpuscular Hemoglobin 28.8 PG (26-34); Mean Corpuscular Volume 86.8 fL (80-100); Monocytes Absolute Auto 600 /uL (0-900); Monocytes Percent Auto 7.3 % (3-14); Neutrophils Absolute Auto 5900 /uL (1500-7000); Platelet Count 269 X10^3/uL (150-400); Red Blood Cell Count 2.82 X10^6/uL (4.5-5.9); Red Cell Distribution Width 15.8 % (11.6-14.8); White Blood Cell Count 7.5 X10^3/uL (4.5-11.0)
[2022-05-08 06:31] LABS: Alanine Aminotransferase 21 IU/L (<50); Albumin 2.6 g/dL (3.5-5.0); Albumin Globulin Ratio 0.6 (1.0-2.8); Alkaline Phosphatase 226 U/L (38-126); Aspartate Aminotransferase 21 IU/L (17-59); BUN Creatinine Ratio 47.5 (6-22); Bilirubin Total 0.2 mg/dL (0.2-1.3); Blood Urea Nitrogen 66 mg/dL (9-20); Calcium 8.4 mg/dL (8.4-10.2); Carbon Dioxide 20 mmol/L (22-32); Chloride 101 mmol/L (98-107); Estimated Glomerular Filt Rate > 60 mL/min (>60); Globulin 4.1 g/dL (1.7-4.1); Glucose 211 mg/dL (70-100); HEMOLYSIS < 15 (0-50); Iron 35 ug/dL (49-181); Magnesium 1.7 mg/dL (1.6-2.3); Potassium 5.3 mmol/L (3.4-5.1); Sodium 133 mmol/L (137-145); Total Protein 6.7 g/dL (6.3-8.2)
[2022-05-08 06:40] LABS: NT-proBNP (BNP-Adult 18+) 19000 pg/mL (<125)
[2022-05-08 06:42] LABS: Percent Iron Saturation 12 % (20-50); Total Iron Binding Capacity 299 ug/dL (261-462); Transferrin 227 mg/dL (206-381)
[2022-05-08 06:48] LABS: Free T3, Triiodothyronine Free 2.45 pg/mL (2.77-5.27)
[2022-05-08 07:02] LABS: Thyroid Stimulating Hormone 5.87 uIU/mL (0.47-4.68)
[2022-05-08] MEDS: INSULIN LISPRO 100 UNIT/ML 3ML VIAL SUBCUT ×4 (09:26→21:03)
[2022-05-08] MEDS: FUROSEMIDE 100 MG in SODIUM CHLORIDE 0.9% 50 ML IV (09:28)
[2022-05-08] MEDS: SPIRONOLACTONE 25 MG TABLET PO (09:28)
[2022-05-08] MEDS: FERROUS SULFATE 325 MG TABLET PO ×3 (09:29→17:50)
[2022-05-08] MEDS: buPROPion XL 150 MG TAB PO (09:29)
[2022-05-08] MEDS: METOPROLOL IR 25 MG TABLET 6.25 MG PO ×2 (09:29→20:57)
[2022-05-08] MEDS: TACROLIMUS 0.5 MG CAPSULE 5 MG PO (09:29)
[2022-05-08] MEDS: ESCITALOPRAM 10 MG TABLET 20 MG PO (09:29)
[2022-05-08] MEDS: TAMSULOSIN 0.4 MG CAPSULE PO (09:32)
[2022-05-08] MEDS: predniSONE 20 MG TABLET 40 MG PO (09:32)
[2022-05-08] MEDS: INSULIN GLARGINE 100 UNIT/ML 3ML PEN 20 UNIT SUBCUT (09:33)
[2022-05-08] MEDS: lisinopriL 5 MG TABLET PO (09:33)
[2022-05-08] MEDS: LOSARTAN 25 MG TABLET 12.5 MG PO ×2 (09:33→20:56)
[2022-05-08] MEDS: SODIUM CHLORIDE 0.9% FLUSH 10 ML IV ×2 (09:34→20:58)
--- NOTE | 2022-05-08 10:54 | PM.PN.1 ---
Subjective Subjective Interval history: Thaddeus Ferris is 52 yr old male smoker with history of hypertension, diabetes with neuropathy, proteinuria with CKD stage 2, renal biopsy/angiogram 04/11, iron-deficiency anemia,? hyperlipidemia, depression presented at the request of his primary care provider for evaluation of shortness of breath increasing over the past 2 weeks or so.? He states he is gained significant weight, has noted swelling in his abdomen and lower extremities.? 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 Slowly feeling better. Not to previous baseline however. Exam Vital Signs (past 8 hours): - 05/08/22 05:51 05/08/22 09:00 Temperature 98.7 F 97.3 F L Pulse Rate 99 H 98 H Respiratory Rate 21 18 Blood Pressure 141/89 H 141/93 H Pulse Oximetry 96 95 Oxygen Flow Rate 2.5 2.5 Oxygen Delivery Method Nasal Cannula Oxygen Flow Rate 2.5 Narrative Exam Narrative: General:? Pale and thin in no acute medical distress. HEENT:? Normocephalic, atraumatic, extraocular muscles intact.? Neck is supple and symmetric, trachea is midline, no adenopathy. Chest: Breathing with no nasal flaring, retractions, tachypneic or labored. Lungs:? Auscultation of all lung lau are decreased in bases.? Cardio:? regular rate and rhythm without murmur, rubs, or gallops, no carotid bruit, no cardiac pulsations present. Abdomen:? Soft nontender, negative for organomegaly, or masses. Bowel sounds are present in all 4 quadrants hypoactive without guarding or rebound. Musculoskeletal:? Muscle tone is? equal,? diffuse wasting present.? Patient has equal bilateral lower extremity tense nonpitting of lower extremeties is decreasing from admission. Skin:? Patient has wound to the lateral side of the right foot approximately the size of a quarter, scab covering. Neuro:? Alert and orientated x3, sensation to touch intact, no gross deficits noted of cranial nerves. Psych:? Has a very flat affect. Objective Labs Result Diagrams: 05/08/22 05:28 05/08/22 05:28 Labs: Laboratory Results - last 24 hr 05/07/22 05/07/22 05/08/22 13:00 15:20 05:28 WBC RBC Hgb Hct MCV MCH MCHC RDW Plt Count Neut % (Auto) Lymph % (Auto) [place] % (Auto) Eos % (Auto) Baso % (Auto) Neut # (Auto) Lymph # (Auto) [place] # (Auto) Eos # (Auto) Baso # (Auto) Sodium 132 L Potassium 5.5 H Chloride 102 Carbon Dioxide 21 L BUN 63 H Creatinine 1.38 H Estimated GFR > 60 BUN/Creatinine Ratio 45.7 H Glucose 252 H Calcium 8.5 Magnesium Iron TIBC % Saturation Transferrin Total Bilirubin AST ALT Alkaline Phosphatase NT-Pro-B Natriuret Pep Total Protein Albumin Globulin Albumin/Globulin Ratio TSH 5.87 H Free T3 2.45 L C. difficile Tox (PCR) Cancelled 05/08/22 05/08/22 05/08/22 05:28 05:28 05:28 WBC 7.5 RBC 2.82 L Hgb 8.1 L Hct 24.4 L MCV 86.8 MCH 28.8 MCHC 33.2 RDW 15.8 H Plt Count 269 Neut % (Auto) 78.0 H Lymph % (Auto) 14.0 L [place] % (Auto) 7.3 Eos % (Auto) 0.1 L Baso % (Auto) 0.6 Neut # (Auto) 5900 Lymph # (Auto) 1100 [place] # (Auto) 600 Eos # (Auto) 0 Baso # (Auto) 0 Sodium 133 L Potassium 5.3 H Chloride 101 Carbon Dioxide 20 L BUN 66 H Creatinine 1.39 H Estimated GFR > 60 BUN/Creatinine Ratio 47.5 H Glucose 211 H Calcium 8.4 Magnesium 1.7 Iron 35 L TIBC 299 % Saturation 12 L Transferrin 227 Total Bilirubin 0.2 AST 21 ALT 21 Alkaline Phosphatase 226 H NT-Pro-B Natriuret Pep 47239 H Total Protein 6.7 Albumin 2.6 L Globulin 4.1 Albumin/Globulin Ratio 0.6 L TSH Free T3 C. difficile Tox (PCR) [facility] Medical History (Updated 05/07/22 @ 01:01 by PAZ Espitia) CKD stage 3 due to type 2 diabetes mellitus Diabetic cataract of right eye Fracture of clavicle, left, closed History of bleeding following renal biopsy Iron deficiency anemia Surgical History (Updated 05/07/22 @ 01:01 by PAZ Espitia) History of renal angiogram Family History Father Diabetes mellitus Mother Diabetes mellitus Social History household members: family Smoking Status: Current some day smoker alcohol intake: never Assessment & Plan Assessment & Plan narrative: Assessment & Plan narrative: 1. Acute respiratory failure with hypercapnic/hypoxic (acidotic), due to congestive heart failure, acute, new onset, with pulmonary edema, acute, contributing factor patient's medication noncompliance, present on admission - BP 141/93, HR 98, R 18, O2 saturation 95% on 2.5 L nasal cannula. -BNP elevated today to 19,000 - ad spironalactone and metorprolol and follow. -fluid restriction 2000 cc, low-sodium diet, continue -persistent elevated potassium.?Improving. Continue to follow -respiratory consult, DuoNebs q.4 hours, incentive spirometry, continue to follow. -Lasix 20 mg b.i.d. on admission and switched to intravenous Lasix, continue with total of IV lasix 200 mg/day - prednisone 40 mg p.o. q.day -stress test show irreversable wall dysfunction and decreased EF, Ech shows EF of 25-30% -continue albuterol inhaler 2. Hyperglycemia, in the setting of insulin-dependent type 2 diabetes, with diabetic nephropathy with proteinuria, acute, present on admission-uncontrolled -initial glucose 484 -patient admitted under diabetic protocol, glucose checks a.c. HS -A1c ordered -12% -patient placed on high dose sliding scale -Lantus 20 units b.i.d., glucose still consistent high, will increase Lantus to 25 Units b.i.d. 3. Elevated alkaline phosphate, acute, present on admission -suspect hepatobiliary, also ruled out hypertriglyceridemia- Noted abd edema, abdominal ultrasound ruled out ascites 4. Diabetic foot wound, right, acute, present on admission -concerned that there may be ulceration down to the bone in the lateral right foot wound beneath the scar tissue, MRI foot shows no signs of osteomyelitis -wound care consult placed 5. Iron deficiency anemia, acute on chronic, present on admission -on admit hemoglobin 8.4, hematocrit 26.1, this is decreased from baseline as documented in the chart last H&H 02/02/2022 hemoglobin 10 hematocrit 29.5.? This continues to decrease and needs to be followed.? Will assess iron to see of iron infusion is appropriate. -monitor patient for bleeding, U/A positive for blood -Hemoccult as needed -continue ferrous sulfate -patient did have a renal biopsy and renal angiogram-on 03/28/2022 at [facility]-in which they kept him overnight due to the concern of bleeding. -due to risk of bleed holding VTE medication and ASA 6. Chronic kidney disease stage III, acute on chronic, present on admission -BUN 65, creatinine 1.36, glucose 484, GFR WNL, albumin 2.7, calcium 8.0, corrected calcium score 9.36 - in our records document a normal creatinine and GFR. -[facility] creatinine 1.6 03/27/2022 -holding spironolactone and torsemide initially, On May 07, a GFR now normal. Spironolactone and torsemide orders in place. 7. Hyperlipidemia secondary to type 2 diabetes, chronic, present on admission -lipid panel ordered-reasonable control based on values today -continue Lipitor 8. Essential hypertension, acute on chronic, present on admission -initial admit BP 157/97, blood pressure is stabilized to 134/89 -continue losartan, metoprolol and spironalactone have been added, plus torsemide will help with blood pressure control. 9. Depression, chronic, present on admission -continue Lexapro and Wellbutrin 10. Positive adenovirus by PCR, consistent with patient appearing ill. On droplet precautions. 11. Elevated TSH but normal free T4, TSH consistently high and free T3 is low.? Levothyroxine dose increased to 75 mcg per day. Hopefully the increase of levothyroxine can help both congestive heart failure and the patient's mood. 12. Patient eager to mobilize. Will have Physical therapy assess. 13. 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 Dilated left ventricle.? The stress left ventricular ejection fraction 31 percent with diffuse global hypokinesis. Follow clinically and labs. Code status:Full Surrogate decision maker:Minda AVILEZ PCR:Negative DVT/VTE prophylaxis:Medication held due to anemia/r/o bleed- SCD's only Time Spent With Patient Critical Care time: I spent a total of [] minutes of critical care time on this patient's care today; this time is exclusive of procedural time. Quality VTE Deep Vein Thrombosis/Pulmonary Embolism Present on Admission: No
--- NOTE | 2022-05-08 11:47 | CM.DPNOTE ---
Addendum entered by Bijal Brandon R.N. 05/08/22 14:16: Met with patient's mom Minda in room today, patient was sleeping. She admits that she wants to become more proactive in encouraging her son to make healthier choices, such as stopping cigar smoking, monitoring diabetes better, taking more active role in his health. She presents as realistic and caring. She confirms that he does not want Home Health services as they have enough family support and can access the doctor should needs arise. SEJ Original Note: Discharge Planning Note: 52 year old chronically ill appearing diabetic patient was admitted 05/06/22 with increasing shortness of breath and weight gain, new onset CHF and adenovirus on contact precautions. Patient history includes DM with neuropathy, HTN, anemia, CKD III, depression, R diabetic foot ulcer, wound consult pending. He receives tacrolimus to help with prevention of nephrotic syndrome episodes per notes. Patient lives in [place] with his parents and 2 daughters. He states he walks with a cane and uses a w/c occasionally due to LE weakness. Patient states he is mostly independent in ADLs but his family helps him as needed. He does not drive. He states he is not compliant with his diabetic regime. Patient's mom and dad will be visiting this afternoon. Plan: When medically stable, patient desires to return home to previous living arrangement. Rekha Brandon RN/DCP
[2022-05-08] MEDS: MAGNESIUM CHLORIDE 64 MG TABLET 128 MG PO (11:54)
--- NOTE | 2022-05-08 14:05 | PT.IIE ---
Current Diagnoses Heart failure, unspecified (05/06/22) Surgical History ([facility] Updated 05/07[facility]22 @ 01:[facility] History of renal angiogram Medical History (Last Updated 05/07/22 @ 01:01 by EDDIE EspitiaCHANDANA) CKD stage 3 due to type 2 diabetes mellitus Diabetic cataract of right eye Fracture of clavicle, left, closed History of bleeding following renal biopsy Iron deficiency anemia Physical Therapy Inpatient Evaluation/Re-Eval M1 PT/OT-IP Prior Functional Status Start: 05/08/22 16:04 Freq: NEEDED Status: Active Protocol: Document 05/08/22 14:05 AB (Rec: 05/08/22 16:20 AB [email or web address]) Medical Review Prior Functional Status Medical History Reviewed Yes Communication able to make needs known Mobility and Gait information provided by pt's mother: stated that pt is able to move around by himself but depending on how he feels; sometimes modified independent with bed mobility, transfers and ambulating without AD but tends to furniture cruise or use a SPC but sometimes, he will need assistance and she is able to assist pt and pt's daughter also assists usually needs assistance with shower needs: sometimes pt can transfer to the tub shower but if not, daughter assists with sponge bathing pt usually stays in bed; occasionally sits up on the chair but gets up to use the toilet or during meal times. Social History Household Members family Living Arrangements House Number of Floors (Floors) One Floor Number of Stairs To Enter/Railing? 3 steps L rail coming through the laundry area 2 steps R rail coming in from the deck Home Environment High Toilet,Tub/Shower Home Equipment Straight Cane,Manual Wheelchair,Shower Seat without Backrest,Hand Held Shower Additional Social History Comment pt lives with his father, mother and daughter: mother or daughter usually assists pt at home; daughter is a [employer] M2 PT-IP Current Condition Start: 05/08/22 16:04 Freq: NEEDED Status: Active Protocol: Document 05/08/22 14:05 AB (Rec: 05/08/22 16:20 AB [email or web address]) Physical Therapy Current Condition Current Condition Evaluation Date 05/08/22 Treatment Diagnosis CHF; respiratory failure; difficulty in walking Onset Date 05/06/22 M3 PT-IP Subjective Start: 05/08/22 16:04 Freq: NEEDED Status: Active Protocol: Document 05/08/22 14:05 AB (Rec: 05/08/22 16:20 AB [email or web address]) Subjective Physical Therapy Visit Type Type Initial Evaluation Visit Start Time 14:05 Visit Stop Time 14:40 Total Visit Minutes 35 Number of LDR NURSE Visits 0 Physical Therapy Visit Comments Patient Comments agreeable to do PT M4 PT-IP Mobility and Gait Start: 05/08/22 16:04 Freq: NEEDED Status: Active Protocol: Document 05/08/22 14:05 AB (Rec: 05/08/22 16:20 AB [email or web address]) PT-Bed Mobility Assessment Supine to Sit Supine to Sit Standby Assistance,Head of Bed Elevated,Bedrails Sit to Supine Sit to Supine Standby Assistance,Head of Bed Elevated,Bedrails PT-Transfer Assessment Sit to and From Stand Sit to and from Stand Maximum Assistance,2 Person Assistance,Use of Upper Extremities Equipment Transfer Assistive Device Gait Belt,Front Wheeled Walker Orthotic/Prosthetic Devices or Brace: No Comments Mobility Comments BP in supine: 125/87 O2 sat 99 -100% with O2 on. completed supine to sit SBA with HOB elevated. pt used UE to assist with LE movement. pt able to sit on EOB SBA. completed sit to stand x 3 attempts and max cues requiring max Ax 2. pt able to stand max A x 2 using FWW for support, able to take side steps towards HOB max A x 2 and max cues ~ 2 ft. pt requested to go back to bed. completed sit to supine SBA with HOB elevated and used bed rail. pt used UE to assist LE up on bed. positioned pt in bed. call light and table placed within reach. Gait Assessment Gait Gait Assistance Required: Maximum Assistance,2 Person Assist Distance (Feet) 2 Able to Maintain Weight Bearing Status Yes During Gait Assistive Devices Assistive Device Gait Belt,Front Wheeled Walker Orthotic/Prosthetic Devices or Brace: No Gait Deviations General Gait Pattern Decreased Stride Length, Decreased Feet Clearance Factors Limiting Gait Function Factors Limiting Gait Function Decreased Activity Tolerance, Decreased Strength,Limited Range of Motion,Poor Balance, Poor Safety Awareness, Respiratory Distress PT-Balance Assessment Sitting Balance and Reactions Static Sitting Balance Ability Good Dynamic Sitting Balance Ability Good Standing Balance and Reactions Static Standing Balance Ability Poor Dynamic Standing Balance Ability Poor Device Used FWW M5 PT-IP Objective Assessments Start: 05/08/22 16:04 Freq: NEEDED Status: Active Protocol: Document 05/08/22 14:05 AB (Rec: 05/08/22 16:20 AB [email or web address]) Orientation Orientation/Cognition Level of Alertness Alert Orientation Name,Place,Situation Language Function Ability No Deficits Noted Safety Awareness Decreased Safety Awareness Strength Lower Extremity Strength Hip 3+/5 Knee 4-/5 Sensation Assessment Sensation Gross Sensation Right LE Impaired,Left LE Impaired Light Touch Impaired Proprioception (Position) Impaired Sensation Description Numbness Comments Sensation Comments pt has peripheral neuropathy on BLE : numbness on BLE from the knees down to the feet Muscle Tone Muscle Tone WNL Yes M6 PT-IP Treatment Start: 05/08/22 16:04 Freq: NEEDED Status: Active Protocol: Document 05/08/22 14:05 AB (Rec: 05/08/22 16:20 AB [email or web address]) Physical Therapy Treatment Education Education Provided Safety M7 PT-IP Assessment and Plan Start: 05/08/22 16:04 Freq: NEEDED Status: Active Protocol: Document 05/08/22 14:05 AB (Rec: 05/08/22 16:20 AB [email or web address]) PT Summary Assessment and Plan Potential Rehabilitation Potential Fair Status of Condition at Evaluation Evolving Summary Impairments Pain,ROM,Strength,Balance, Coordination,Sensation,Tone, Cognition,Bed Mobility, Transfers,Gait,Activity Tolerance Assessment Summary pt requiring max A x 2 for standing and unable to ambulate at this time. pt also has decrease activity tolerance. pt will require 24 /7 assist of 2 person and will need SNF rehab to improve overall strength and mobility. Goals Bed Mobility Goal Independent Transfer Goal Moderate Assistance,Front Wheeled Walker Gait Goal Moderate Assistance,Front Wheel Walker Gait Distance 50 Other Goals improve transfers and ambulation using FWW 100 ft SBA up/down 2 steps R rail SBA Days to Meet Goals 10 Frequency of Treatment Frequency Of Treatment Once a Day Treatment Plan Physical Therapy Treatment Plan Bed Mobility Training,Transfer Training,Gait Training, Therapeutic Exercise,Balance Retraining,Discharge Planning, Hot or Cold Pack,Neuromuscular Re-ed,Coordination Retraining Precautions Other Precautions droplet precautions(adenovirus ) Recommendations To Nursing Amount of Assist Needed Mechanical Lift Discharge Recommendations PT Discharge Recommendations SNF Rehab Transportation Needs at Discharge Wheelchair/Cabulance,Stretcher /Ambulance
--- NOTE | 2022-05-08 14:09 | PC.NURSE ---
Addendum entered by Kelly Garner R.N. 05/08/22 18:45: Patient re-weighted and he is 109kg. He denies pain and was able to stand with gaitbelt and walker. Dinner time blood sugar 194 and given 4u of ss insulin, which patient tolerates well. Family came to visit earlier on in the day. Original Note: Assess- Patient is alert and oriented. His coloring is dusky. BS with crackles to bases, on 2.5L of oxygen. Patient becomes sob with exertion. He has 2+ edema to lower extremities and ankles. Will have physical therapy consult today. He is able to move around in bed and he denies pain. Patient has abrasions and scratches on his arms and legs, and an unstagable ulcer to foot. His blood sugars have been 236, and 204. Patient given insulin x2. Family is in visiting now.
--- NOTE | 2022-05-08 17:32 | DIET.CONS ---
Dietary Consultation Note Admission Date: 05/06/2022 20:20 Assessment: 52y M admitted for multiple comorbidities referred to nutrition for DM education. Pt reports apathy regarding DM management. He lives in home with his parents. Pt reports knowledge on carb counting, can recall DM medications and how to dose sliding scale insulin as needed but often finds himself not wanting to take his medications at all. Pt with DM foot ulcer awaiting wound care consultation. Pt had bad experience with DM educator in the past, he drove an hour to meet them and did not find rapport. Pt open to DM ed at via telehealth to avoid driving. Pt states he could use some education and kind accountability to increase his motivation. Ht: 185.42 cm Wt: 111 kg BMI: 25.0 Last BM: 05/07/22 (05/07/22 20:11) MNA: 14 Osmani Score: 16 Diet: 05/06/22 Breakfast Fluid Restriction Diet Diet Modifications: low sodium, carb consistent 60g Total fluid amount: 2,000 Amount allotted to patient trays: 100 Free water included in total: Yes Fluid in addition to trays: 2112-5863 amount: 850 0406-2734 amount: 850 Nutrition Percent Meal Consumed 75% 05/07/22 20:12 Percent Meal Consumed 75% 05/07/22 18:00 Labs: RBC 2.82 X10^6/uL (4.5-5.9) L 05/08/22 05:28 Hgb 8.1 g/dL (13.5-17.5) L 05/08/22 05:28 Hct 24.4 % (41-53) L 05/08/22 05:28 Creatinine 1.39 mg/dL (0.66-1.25) H 05/08/22 05:28 Hemoglobin A1c 12.0 % (4.0-6.0) H 05/06/22 17:11 Lactate 0.6 mmol/L (0.7-2.1) L 05/06/22 17:11 Iron 35 ug/dL (49-181) L 05/08/22 05:28 % Saturation 12 % (20-50) L 05/08/22 05:28 NT-Pro-B Natriuret Pep 30691 pg/mL (<125) H 05/08/22 05:28 Nutrition Diagnosis: altered nutrition related laboratory values (A1c) r/t diabetes distress aeb pt with A1c 12, pt reports apathy and avoiding medication administration on and off through the years, pt with DM foot ulcer. Interventions: 1. Requested referral from Dr. Andrade's office for DM education per pt request. Provided kind encouragement on self-care and DM management to support functional capacity. Electronically Signed by: Loni Ferris 05/08/22 17:32 Clinical Dietitian [address] [id number]
[2022-05-08] MEDS: ATORVASTATIN 20 MG TABLET 40 MG PO (20:55)
[2022-05-08] MEDS: INSULIN GLARGINE 100 UNIT/ML 3ML PEN 25 UNIT SUBCUT (20:55)
[2022-05-08] MEDS: TORSEMIDE 100 MG TABLET PO (20:58)
[2022-05-08] MEDS: SENNOSIDES 8.6 MG TABLET 17.2 MG PO (20:58)
[2022-05-08] MEDS: TACROLIMUS 0.5 MG CAPSULE 4 MG PO (21:11)
[2022-05-09] VITALS (8 sets, daily range): BP systolic 124–136; BP diastolic 84–88; PULSE 86–97; RESP 17–20; TEMP 36–36.4; O2SAT 94–97
[2022-05-09] MEDS: ACETAMINOPHEN 325 MG TABLET 975 MG PO (00:27)
--- NOTE | 2022-05-09 01:23 | PC.NURSE ---
Patient is alert and oriented with flat affect. Breath sounds diminished in bilateral mid/lower lobes; on oxygen at 2.5L/min with sat of 94%. HRR w/telemetry reading of SR. Denies nausea. BT present and had BM this shift. Denies dysuria; using urinal to void. Is able to move himself in bed. Gets up to BSC with 2 assists and declines use of walker; very weak. Wearing bilateral calf SCD's at shift change but later removed them and declined to have them put back on. Complained of 4/10 back pain earlier and was medicated with Tylenol and is currently asleep. Continues to have edema waist down with right > left in LE. Remains on fluid restriction. Fall risk assessment is high and bed alarm is activated.
[2022-05-09 06:07] LABS: Add Manual Diff / Slide Review NO; Basophils Absolute Auto 0 /uL (0-100); Basophils Percent Auto 0.4 % (0-2); Eosinophils Absolute Auto 0 /uL (0-450); Eosinophils Percent Auto 0.1 % (2-4); Hematocrit 24.6 % (41-53); Hemoglobin 8.1 g/dL (13.5-17.5); Lymphocytes Absolute Auto 1400 /uL (1100-4500); Lymphocytes Percent Auto 18.9 % (25-40); Mean Corpuscular HGB Conc 32.9 % (30-36); Mean Corpuscular Hemoglobin 28.5 PG (26-34); Mean Corpuscular Volume 86.7 fL (80-100); Monocytes Absolute Auto 600 /uL (0-900); Monocytes Percent Auto 8.7 % (3-14); Neutrophils Absolute Auto 5200 /uL (1500-7000); Neutrophils Percent Auto 71.9 % (50-75); Platelet Count 273 X10^3/uL (150-400); Red Blood Cell Count 2.84 X10^6/uL (4.5-5.9); Red Cell Distribution Width 15.9 % (11.6-14.8); White Blood Cell Count 7.2 X10^3/uL (4.5-11.0)
[2022-05-09] MEDS: LEVOTHYROXINE 75 MCG TABLET PO (06:08)
[2022-05-09] MEDS: FUROSEMIDE 100 MG in SODIUM CHLORIDE 0.9% 50 ML IV (06:09)
[2022-05-09 06:24] LABS: Alanine Aminotransferase 22 IU/L (<50); Albumin 2.5 g/dL (3.5-5.0); Albumin Globulin Ratio 0.6 (1.0-2.8); Alkaline Phosphatase 197 U/L (38-126); Aspartate Aminotransferase 20 IU/L (17-59); Bilirubin Total 0.2 mg/dL (0.2-1.3); Blood Urea Nitrogen 73 mg/dL (9-20); Calcium 8.4 mg/dL (8.4-10.2); Carbon Dioxide 23 mmol/L (22-32); Chloride 102 mmol/L (98-107); Estimated Glomerular Filt Rate 57 mL/min (>60); Glucose 205 mg/dL (70-100); HEMOLYSIS < 15 (0-50); Magnesium 1.6 mg/dL (1.6-2.3); Sodium 133 mmol/L (137-145); Total Protein 6.5 g/dL (6.3-8.2)
[2022-05-09 06:32] LABS: NT-proBNP (BNP-Adult 18+) 16700 pg/mL (<125)
[2022-05-09] MEDS: INSULIN LISPRO 100 UNIT/ML 3ML VIAL SUBCUT ×4 (08:14→21:23)
[2022-05-09] MEDS: INSULIN GLARGINE 100 UNIT/ML 3ML PEN 25 UNIT SUBCUT ×2 (08:15→21:27)
[2022-05-09] MEDS: ESCITALOPRAM 10 MG TABLET 20 MG PO (08:19)
[2022-05-09] MEDS: buPROPion XL 150 MG TAB PO (08:19)
[2022-05-09] MEDS: predniSONE 20 MG TABLET 40 MG PO (08:20)
[2022-05-09] MEDS: FERROUS SULFATE 325 MG TABLET PO ×3 (08:21→17:11)
[2022-05-09] MEDS: TAMSULOSIN 0.4 MG CAPSULE PO (08:21)
[2022-05-09] MEDS: METOPROLOL IR 25 MG TABLET 6.25 MG PO ×2 (08:22→21:16)
[2022-05-09] MEDS: TORSEMIDE 100 MG TABLET PO ×2 (08:23→21:15)
[2022-05-09] MEDS: LOSARTAN 25 MG TABLET 12.5 MG PO ×2 (08:23→21:20)
[2022-05-09] MEDS: SPIRONOLACTONE 25 MG TABLET PO (08:24)
[2022-05-09] MEDS: SODIUM CHLORIDE 0.9% FLUSH 10 ML IV ×2 (08:25→21:23)
[2022-05-09] MEDS: TACROLIMUS 0.5 MG CAPSULE 5 MG PO ×2 (08:26→21:22)
[2022-05-09] MEDS: FUROSEMIDE 40 MG TABLET 80 MG PO ×2 (08:32→17:11)
--- NOTE | 2022-05-09 12:29 | PT-IP ANOTE ---
Pt refused PT due to high level of fatigue. Will check back tomorrow.
--- NOTE | 2022-05-09 13:33 | P.PN_ITS ---
Subjective Subjective Interval history: Thaddeus Ferris is 52 yr old male smoker with history of hypertension, diabetes with neuropathy, proteinuria with CKD stage 2, renal biopsy/angiogram 04/11, iron-deficiency anemia,? hyperlipidemia, depression presented at the request of his primary care provider for evaluation of shortness of breath increasing over the past 2 weeks or so.? He states he is gained significant weight, has noted swelling in his abdomen and lower extremities.? Receives tacrolimus medication to help with prevention of nephrotic syndrome episodes, this is prescribed by his hospitalist physician. Patient continues to feel better. Having bowel movements on a regular basis. Eating well. Has more energy. Is more optimistic about improving. Significant decrease in swelling of the lower extremities. Is pleased with his progress. Exam Vital Signs (past 8 hours): - 05/09/22 08:23 05/09/22 08:16 05/09/22 07:30 Temperature 96.8 F L Pulse Rate 86 88 Respiratory Rate 18 Blood Pressure 135/86 135/86 Pulse Oximetry 96 95 Oxygen Delivery Method Nasal Cannula Oxygen Flow Rate 2.5 2.5 05/09/22 12:23 Temperature 97.3 F L Pulse Rate 87 Respiratory Rate 20 Blood Pressure 125/86 Pulse Oximetry 97 Oxygen Delivery Method Oxygen Flow Rate 2.5 Oxygen Delivery Method Nasal Cannula Oxygen Flow Rate 2.5 Narrative Exam Narrative: General:? Pale and thin in no acute medical distress. HEENT:? Normocephalic, atraumatic, extraocular muscles intact.? Neck is supple and symmetric, trachea is midline, no adenopathy. Chest: Breathing with no nasal flaring, retractions, tachypneic or labored. Lungs:? Auscultation of all lung lau are decreased in bases.? Cardio:? regular rate and rhythm without murmur, rubs, or gallops, no carotid bruit, no cardiac pulsations present. Abdomen:? Soft nontender, negative for organomegaly, or masses. Bowel sounds are present in all 4 quadrants. Musculoskeletal:? Muscle tone is? equal,? diffuse wasting present.? Patient has equal bilateral lower extremity. Minimal edema remaining the lower extremity. Skin:? Patient has wound to the lateral side of the right foot approximately the size of a quarter, scab covering. Neuro:? Alert and orientated x3, sensation to touch intact, no gross deficits noted of cranial nerves. Psych:? Affect is less flat than previous and patient more animated. Objective Labs Result Diagrams: 05/09/22 05:45 05/09/22 05:45 Labs: Laboratory Results - last 24 hr 05/09/22 05/09/22 05/09/22 05:45 05:45 05:45 WBC 7.2 RBC 2.84 L Hgb 8.1 L Hct 24.6 L MCV 86.7 MCH 28.5 MCHC 32.9 RDW 15.9 H Plt Count 273 Neut % (Auto) 71.9 Lymph % (Auto) 18.9 L [place] % (Auto) 8.7 Eos % (Auto) 0.1 L Baso % (Auto) 0.4 Neut # (Auto) 5200 Lymph # (Auto) 1400 [place] # (Auto) 600 Eos # (Auto) 0 Baso # (Auto) 0 Sodium 133 L Cancelled Potassium 5.0 Cancelled Chloride 102 Cancelled Carbon Dioxide 23 Cancelled BUN 73 H Cancelled Creatinine 1.49 H Cancelled Estimated GFR 57 L Cancelled BUN/Creatinine Ratio 49.0 H Cancelled Glucose 205 H Cancelled Calcium 8.4 Cancelled Magnesium 1.6 Total Bilirubin 0.2 Cancelled AST 20 Cancelled ALT 22 Cancelled Alkaline Phosphatase 197 H Cancelled NT-Pro-B Natriuret Pep 95424 H Total Protein 6.5 Cancelled Albumin 2.5 L Cancelled Globulin 4.0 Cancelled Albumin/Globulin Ratio 0.6 L Cancelled [facility] Medical History (Updated 05/07/22 @ 01:01 by PAZ Espitia) CKD stage 3 due to type 2 diabetes mellitus Diabetic cataract of right eye Fracture of clavicle, left, closed History of bleeding following renal biopsy Iron deficiency anemia Surgical History (Updated 05/07/22 @ 01:01 by PAZ Espitia) History of renal angiogram Family History Father Diabetes mellitus Mother Diabetes mellitus Social History household members: family Smoking Status: Current some day smoker alcohol intake: never Assessment & Plan Assessment & Plan narrative: 1. Acute respiratory failure with hypercapnic/hypoxic (acidotic), due to congestive heart failure, acute, new onset, with pulmonary edema, acute, contributing factor patient's medication noncompliance, present on admission - BP 125/86, HR 87, R 20, O2 saturation 97% on 2.5 L nasal cannula. -BNP elevated today to 19,000 - ad spironalactone and metorprolol and follow. -fluid restriction 2000 cc, low-sodium diet, continue -potassium now normal value.?Improving.? Continue to follow -respiratory consult, DuoNebs q.4 hours, incentive spirometry, continue to follow. -furosemide now transitioned to oral 60 mg t.i.d. - prednisone 40 mg p.o. q.day. would be reasonable to discontinue. -stress test show irreversable wall dysfunction and decreased EF, Ech shows EF of 25-30% -continue albuterol inhaler 2. Hyperglycemia, in the setting of insulin-dependent type 2 diabetes, with diabetic nephropathy with proteinuria, acute, present on admission-uncontrolled -initial glucose 484 -patient admitted under diabetic protocol, glucose checks a.c. HS -A1c ordered -12% -patient placed on high dose sliding scale -Lantus 20 units b.i.d., glucose still consistent high, will increase Lantus to 25 Units b.i.d. control slowly improving -dietitian involved. 3. Elevated alkaline phosphate, acute, present on admission -suspect hepatobiliary, also ruled out hypertriglyceridemia- Noted abd edema, abdominal ultrasound ruled out ascites -alkaline phosphatase slowly improving. Continue to follow. 4. Diabetic foot wound, right, acute, present on admission -concerned that there may be ulceration down to the bone in the lateral right foot wound beneath the scar tissue, MRI foot shows no signs of osteomyelitis -wound care consult placed 5. Iron deficiency anemia, acute on chronic, present on admission -on admit hemoglobin 8.4, hematocrit 26.1, this is decreased from baseline as documented in the chart last H&H 02/02/2022 hemoglobin 10 hematocrit 29.5.? -monitor patient for bleeding, U/A positive for blood --continue ferrous sulfate, at increased dose -patient did have a renal biopsy and renal angiogram-on 03/28/2022 at [facility]-in which they kept him overnight due to the concern of bleeding. -due to risk of bleed holding VTE medication and ASA 6. Chronic kidney disease stage III, acute on chronic, present on admission -BUN 65, creatinine 1.36, glucose 484, GFR WNL, albumin 2.7, calcium 8.0, corrected calcium score 9.36 - in our records document a normal creatinine and GFR. -[facility] creatinine 1.6 03/27/2022 -holding spironolactone and torsemide initially, On May 07, a GFR now normal.? Spironolactone and torsemide orders in place. 7. Hyperlipidemia secondary to type 2 diabetes, chronic, present on admission -lipid panel ordered-reasonable control based on values today -continue Lipitor 8. Essential hypertension, acute on chronic, present on admission -initial admit BP 157/97, blood pressure is stabilized to 125/86 -continue losartan, metoprolol and spironalactone have been added, plus torsemide will help with blood pressure control. 9. Depression, chronic, present on admission -continue Lexapro and Wellbutrin 10. Positive adenovirus by PCR, consistent with patient appearing ill.? On dropl et precautions. Clinically improving. 11. Elevated TSH but normal free T4, TSH consistently high and free T3 is low.? Levothyroxine dose increased to 75 mcg per day.? Hopefully the increase of levot hyroxine can help both congestive heart failure and the patient's mood. The levothyroxine replacement C2 improving patient's energy and mood. Continue to follow clinically. 12. Patient eager to mobilize.? Will have Physical therapy assess. 13. Normal cardiac stress test as follows, patient made aware of the results:? abnormal myocardial perfusion study, consistent with moderate to large size infarction of inferior wall extending into the inferoapex and base to mid inferolateral wall, as well as infarction of base to mid anterior wall and distal anteroseptum.? Dilated left ventricle.? The stress left ventricular ejection fraction 31 percent with diffuse global hypokinesis. Follow clinically and labs. Code status:Full Surrogate decision maker:Minda Ferris Mother RAGHAV PCR:Negative DVT/VTE prophylaxis:Medication held due to anemia/r/o bleed- SCD's only Time Spent With Patient Critical Care time: I spent a total of [] minutes of critical care time on this patient's care today; this time is exclusive of procedural time. Quality VTE Deep Vein Thrombosis/Pulmonary Embolism Present on Admission: No
--- NOTE | 2022-05-09 15:57 | CM.DPNOTE ---
Discharge Planning Note: PT recommends SNF rehab due to patient's deconditioned status and requiring mechanical lift to get OOB, etc. Discussed with patient and he adamantly refuses to go to SNF Rehab, he also refuses any Home Health. Had spoken with patient's mother Minda earlier and mentioned that SNF Rehab was recommended by PT, she was amenable to but of course up to patient. Plan: Discharge home when medically stable unto care of family. Revisit idea of dc to SNF Rehab if patient open to discussion. Rekha Brandon RN/DCP
[2022-05-09 17:52] LABS: H. Pylori Antigen Stool Negative (Negative)
[2022-05-09] MEDS: ATORVASTATIN 20 MG TABLET 40 MG PO (21:16)
[2022-05-09] MEDS: SENNOSIDES 8.6 MG TABLET 17.2 MG PO (21:16)
[2022-05-10] VITALS (8 sets, daily range): BP systolic 118–145; BP diastolic 74–90; PULSE 82–90; RESP 16–18; TEMP 35.9–36.6; O2SAT 94–97
[2022-05-10] MEDS: LEVOTHYROXINE 75 MCG TABLET PO (05:45)
[2022-05-10 05:58] LABS: Add Manual Diff / Slide Review NO; Basophils Absolute Auto 0 /uL (0-100); Basophils Percent Auto 0.3 % (0-2); Eosinophils Absolute Auto 0 /uL (0-450); Eosinophils Percent Auto 0.2 % (2-4); Hematocrit 24.7 % (41-53); Hemoglobin 8.3 g/dL (13.5-17.5); Lymphocytes Absolute Auto 1600 /uL (1100-4500); Mean Corpuscular HGB Conc 33.7 % (30-36); Mean Corpuscular Volume 86.1 fL (80-100); Monocytes Absolute Auto 700 /uL (0-900); Neutrophils Absolute Auto 4800 /uL (1500-7000); Neutrophils Percent Auto 67.5 % (50-75); Platelet Count 257 X10^3/uL (150-400); Red Blood Cell Count 2.87 X10^6/uL (4.5-5.9); Red Cell Distribution Width 15.6 % (11.6-14.8); White Blood Cell Count 7.2 X10^3/uL (4.5-11.0)
[2022-05-10 06:04] LABS: Alanine Aminotransferase 20 IU/L (<50); Albumin 2.5 g/dL (3.5-5.0); Albumin Globulin Ratio 0.7 (1.0-2.8); Alkaline Phosphatase 177 U/L (38-126); Aspartate Aminotransferase 17 IU/L (17-59); BUN Creatinine Ratio 48.4 (6-22); Bilirubin Total 0.1 mg/dL (0.2-1.3); Bilirubin Unconjugated 0.1 mg/dL (0.0-1.1); Blood Urea Nitrogen 74 mg/dL (9-20); C-Reactive Protein Quant < 0.5 mg/dL (<1.0); Calcium 8.4 mg/dL (8.4-10.2); Carbon Dioxide 23 mmol/L (22-32); Chloride 100 mmol/L (98-107); Estimated Glomerular Filt Rate 55 mL/min (>60); Globulin 3.8 g/dL (1.7-4.1); Glucose 192 mg/dL (70-100); HEMOLYSIS < 15 (0-50); Potassium 4.9 mmol/L (3.4-5.1); Sodium 132 mmol/L (137-145); Total Protein 6.3 g/dL (6.3-8.2)
[2022-05-10 06:10] LABS: NT-proBNP (BNP-Adult 18+) 17800 pg/mL (<125)
[2022-05-10] MEDS: FERROUS SULFATE 325 MG TABLET PO ×3 (08:15→17:46)
[2022-05-10] MEDS: FUROSEMIDE 40 MG TABLET 80 MG PO ×2 (08:15→17:46)
[2022-05-10] MEDS: INSULIN LISPRO 100 UNIT/ML 3ML VIAL SUBCUT ×4 (08:15→21:17)
--- NOTE | 2022-05-10 09:28 | PM.PN.1 ---
Subjective Subjective Interval history: Thaddeus Ferris is 52 yr old male smoker with history of hypertension, diabetes with neuropathy, proteinuria with CKD stage 2, renal biopsy/angiogram 04/11, iron-deficiency anemia,? hyperlipidemia, depression presented at the request of his primary care provider for evaluation of shortness of breath increasing over the past 2 weeks or so.? He states he is gained significant weight, has noted swelling in his abdomen and lower extremities.? Receives tacrolimus medication to help with prevention of nephrotic syndrome episodes, this is prescribed by his slide forming machine tender. Patient continues to sleep well at night and have more energy during the day. Every day he feels a little bit better. No new complaints. Exam Vital Signs (past 8 hours): - 05/10/22 04:50 Temperature 96.7 F L Pulse Rate 87 Respiratory Rate 16 Blood Pressure 118/74 Pulse Oximetry 96 Oxygen Flow Rate 2.5 Oxygen Delivery Method Nasal Cannula Oxygen Flow Rate 2.5 Narrative Exam Narrative: General:? Pale and thin in no acute medical distress. HEENT:? Normocephalic, atraumatic, extraocular muscles intact.? Neck is supple and symmetric, trachea is midline, no adenopathy. Chest: Breathing with no nasal flaring, retractions, tachypneic or labored. Lungs:? Auscultation of all lung lau are decreased in bases.? Cardio:? regular rate and rhythm without murmur, rubs, or gallops, no carotid bruit, no cardiac pulsations present. Abdomen:? Soft nontender, negative for organomegaly, or masses. Bowel sounds are present in all 4 quadrants. Musculoskeletal:? Muscle tone is? equal,? diffuse wasting present.? Patient has equal bilateral lower extremity pulses.? Minimal edema remaining the lower extremities. Skin:? Patient has wound to the lateral side of the right foot approximately the size of a quarter, scab covering. Neuro:? Alert and orientated x3, sensation to touch intact, no gross deficits noted of cranial nerves. Psych:? Affect is becoming less flat and this may be result of being on regular dose of levothyroxine. Objective Labs Result Diagrams: 05/10/22 05:38 05/10/22 05:38 Labs: Laboratory Results - last 24 hr 05/07/22 05/10/22 05/10/22 13:00 05:38 05:38 WBC 7.2 RBC 2.87 L Hgb 8.3 L Hct 24.7 L MCV 86.1 MCH 29.0 MCHC 33.7 RDW 15.6 H Plt Count 257 Neut % (Auto) 67.5 Lymph % (Auto) 22.0 L [place] % (Auto) 10.0 Eos % (Auto) 0.2 L Baso % (Auto) 0.3 Neut # (Auto) 4800 Lymph # (Auto) 1600 [place] # (Auto) 700 Eos # (Auto) 0 Baso # (Auto) 0 Sodium 132 L Potassium 4.9 Chloride 100 Carbon Dioxide 23 BUN 74 H Creatinine 1.53 H Estimated GFR 55 L BUN/Creatinine Ratio 48.4 H Glucose 192 H Calcium 8.4 Total Bilirubin 0.1 L Conjugated Bilirubin 0.0 Unconjugated Bilirubin 0.1 AST 17 ALT 20 Alkaline Phosphatase 177 H C-Reactive Protein < 0.5 NT-Pro-B Natriuret Pep 86021 H Total Protein 6.3 Albumin 2.5 L Globulin 3.8 Albumin/Globulin Ratio 0.7 L H. pylori Antigen Negative [facility] Medical History (Updated 05/07/22 @ 01:01 by PAZ Espitia) CKD stage 3 due to type 2 diabetes mellitus Diabetic cataract of right eye Fracture of clavicle, left, closed History of bleeding following renal biopsy Iron deficiency anemia Surgical History (Updated 05/07/22 @ 01:01 by PAZ Espitia) History of renal angiogram Family History Father Diabetes mellitus Mother Diabetes mellitus Social History household members: family Smoking Status: Current some day smoker alcohol intake: never Assessment & Plan Assessment & Plan narrative: 1. Acute respiratory failure with hypercapnic/hypoxic (acidotic), due to congestive heart failure, acute, new onset, with pulmonary edema, acute, contributing factor patient's medication noncompliance, present on admission - BP 118/74, HR 87, R 16, O2 saturation 96% on 2.5 L nasal cannula. More than likely in this patient a O2 saturation of 92-94% would be acceptable however. -BNP today to 17,800 - on spironalactone, furosemide, torsemide and metorprolol. -fluid restriction 2000 cc, low-sodium diet, continue -potassium now normal value.? Continues to improve.? Continue to follow -respiratory consult, albuterol neb q.4 hours as needed, incentive spirometry, continue to follow. -furosemide now 80 mg p.o. b.i.d. - prednisone 40 mg p.o. q.day. this was discontinued yesterday. -continue albuterol inhaler 2. Acute congestive heart failure. Consistent with acute systolic failure on presentation with echo showing HFrEF. However patient's heart failure is likely chronic at this time. He has a chronic elevation of BNP that likely will be persistent not able to reduce further based on his other comorbidities. -stress test show irreversable wall dysfunction and decreased EF, Echo shows EF of 25-30%. This likely is a pattern of a previous myocardial infarction that the patient is unaware of. Likely this contributed to the acute congestive heart failure and hence the presentation. 3. Hyperglycemia, in the setting of insulin-dependent type 2 diabetes, with diabetic nephropathy with proteinuria, acute, present on admission-uncontrolled -initial glucose 484 -patient admitted under diabetic protocol, glucose checks a.c. HS -A1c ordered -12% -patient placed on high dose sliding scale -Lantus 20 units b.i.d., glucose still consistent high, this has been increased to Lantus to 25 Units b.i.d. control slowly improving -dietitian involved. 4. Elevated alkaline phosphate, acute, present on admission -suspect hepatobiliary, also ruled out hypertriglyceridemia- Noted abd edema, abdominal ultrasound ruled out ascites -alkaline phosphatase slowly improving.? Continue to follow. 5. Diabetic foot wound, right, acute, present on admission -concerned that there may be ulceration down to the bone in the lateral right foot wound beneath the scar tissue, MRI foot shows no signs of osteomyelitis -wound care consult placed 6. Iron deficiency anemia, acute on chronic, present on admission -on admit hemoglobin 8.4, hematocrit 26.1, this is decreased from baseline as documented in the chart last H&H 02/02/2022 hemoglobin 10 hematocrit 29.5.? -monitor patient for bleeding, U/A positive for blood --continue ferrous sulfate, at increased dose of t.i.d. -patient did have a renal biopsy and renal angiogram-on 03/28/2022 at [facility]-in which they kept him overnight due to the concern of bleeding. -due to risk of bleed holding VTE medication and ASA 7. Chronic kidney disease stage III, acute on chronic, present on admission -BUN 65, creatinine 1.36, glucose 484, GFR WNL, albumin 2.7, calcium 8.0, corrected calcium score 9.36 - in our records document a normal creatinine and GFR. -[facility] creatinine 1.6 03/27/2022 -holding spironolactone and torsemide initially, On May 07, a GFR which was normal.? Spironolactone and torsemide orders in place. 8. Hyperlipidemia secondary to type 2 diabetes, chronic, present on admission -lipid panel ordered-reasonable control based on values today -continue Lipitor 9. Essential hypertension, acute on chronic, present on admission -initial admit BP 157/97, blood pressure is stabilized to 125/86 -continue losartan, metoprolol and spironalactone have been added, plus torsemide will help with blood pressure control. 10. Depression, chronic, present on admission -continue Lexapro and Wellbutrin 11. Positive adenovirus by PCR, consistent with patient appearing ill on initial presentation.? On droplet precautions.? Clinically improving. 12. Elevated TSH but normal free T4, TSH consistently high and free T3 is low.? Levothyroxine dose increased to 75 mcg per day.? Hopefully the increase of levothyroxine can help both congestive heart failure and the patient's mood.? The levothyroxine replacement is improving patient's energy and mood.? Continue to follow clinically. Patient will need a repeat TSH, free T3 and free T4 approximately May 28. Based on his initial normal free T3, it should be the free T4 that is more closely follow to determine if the levothyroxine needs to be adjusted. 12. Patient eager to mobilize.? Will have Physical therapy assess. 13. Abnormal cardiac stress test as follows, patient made aware of the results:?abnormal myocardial perfusion study, consistent with moderate to large size infarction of inferior wall extending into the inferoapex and base to mid inferolateral wall, as well as infarction of base to mid anterior wall and distal anteroseptum.? Dilated left ventricle.? The stress left ventricular ejection fraction 31 percent with diffuse global hypokinesis. Follow clinically and labs. Goal now should be to establish a routine of care that can be undertaken at home and establish if the patient truly needs O2 supplementation, so that the patient can be transitioned to home with care support by the family since the patient does not want home health. Patient is agreeable to virtual dietitian/diabetes I support. Code status:Full Surrogate decision maker:Minda Ferris Mother COVID PCR:Negative DVT/VTE prophylaxis:Medication held due to anemia/r/o bleed- SCD's only Time Spent With Patient Critical Care time: I spent a total of [] minutes of critical care time on this patient's care today; this time is exclusive of procedural time. Quality VTE Deep Vein Thrombosis/Pulmonary Embolism Present on Admission: No
[2022-05-10] MEDS: TORSEMIDE 100 MG TABLET PO ×2 (10:34→21:19)
[2022-05-10] MEDS: TACROLIMUS 0.5 MG CAPSULE 5 MG PO ×2 (10:35→21:16)
[2022-05-10] MEDS: buPROPion XL 150 MG TAB PO (10:36)
[2022-05-10] MEDS: INSULIN GLARGINE 100 UNIT/ML 3ML PEN 25 UNIT SUBCUT ×2 (10:37→21:16)
[2022-05-10] MEDS: SPIRONOLACTONE 25 MG TABLET PO (10:37)
[2022-05-10] MEDS: ESCITALOPRAM 10 MG TABLET 20 MG PO (10:37)
[2022-05-10] MEDS: LOSARTAN 25 MG TABLET 12.5 MG PO ×2 (10:38→21:13)
[2022-05-10] MEDS: METOPROLOL IR 25 MG TABLET 6.25 MG PO ×2 (10:38→21:10)
[2022-05-10] MEDS: SODIUM CHLORIDE 0.9% FLUSH 10 ML IV ×2 (10:41→21:19)
--- NOTE | 2022-05-10 11:36 | PT.IPTN ---
Current Diagnoses Heart failure, unspecified (05/06/22) Physical Therapy Treatment Note M2 PT-IP Current Condition Start: 05/08/22 16:04 Freq: NEEDED Status: Active Protocol: Document 05/08/22 14:05 AB (Rec: 05/08/22 16:20 AB [id number]) Physical Therapy Current Condition Current Condition Evaluation Date 05/08/22 Treatment Diagnosis CHF; respiratory failure; difficulty in walking Onset Date 05/06/22 M3 PT-IP Subjective Start: 05/08/22 16:04 Freq: NEEDED Status: Active Protocol: Document 05/10/22 11:11 KS (Rec: 05/10/22 12:39 KS [id number]) Subjective Physical Therapy Visit Type Type Treatment Note Visit Start Time 11:11 Visit Stop Time 11:36 Total Visit Minutes 25 Notes Family present for caregiver training Number of DIRECTOR OF DIGITAL TECHNOLOGY Visits 1 Physical Therapy Visit Comments Patient Comments agreeable to do PT M4 PT-IP Mobility and Gait Start: 05/08/22 16:04 Freq: NEEDED Status: Active Protocol: Document 05/10/22 11:11 KS (Rec: 05/10/22 12:39 KS [id number]) PT-Bed Mobility Assessment Supine to Sit Supine to Sit Standby Assistance,Head of Bed Elevated,Bedrails Sit to Supine Sit to Supine Moderate Assistance,1 Person Assistance,Head of Bed Elevated Scooting Scooting to Edge of Bed Contact Guard Assistance PT-Transfer Assessment Sit to and From Stand Sit to and from Stand Moderate Assistance,1 Person Assistance,Use of Upper Extremities Equipment Transfer Assistive Device Gait Belt,Front Wheeled Walker Orthotic/Prosthetic Devices or Brace: No Transfers Transfer Destination Bed,Bedside Commode Transfer Technique Stand Step Pivot Transfer Ability Level of Assist Moderate Assistance,1 Person Assistance,Use of Upper Extremities Comments Mobility Comments Pt in bed upon arrival and wanting to use BSC. DRAG OUT WORKER and family present for assistance. Pt agreeable to having family assist w/ transfer to assess at home safety. Pts daughter provided CGA for sit<>stand from bed and stand step pivot to BSC w/ FWW. After BM, pt required Mod A to stand from BSC, which his daughter provided. She also assisted him w/ pericare and back to bed Mod A. Pt too fatigued to ambulate or for further participation. Spoke w/ pt and famiyl regarding SNF vs HH. Pts daughter is not always present to assist, mother limited in the physical assist she can provide, and father scheduled for knee surgery next month - all have some concerns about pts safety and ability to return home. Pt is open to SNF. Gait Assessment Gait Gait Assistance Required: Moderate Assistance,1 Person Assist Distance (Feet) 2 Able to Maintain Weight Bearing Status Yes During Gait Assistive Devices Assistive Device Gait Belt,Front Wheeled Walker Orthotic/Prosthetic Devices or Brace: No Gait Deviations General Gait Pattern Decreased Stride Length, Decreased Feet Clearance,Wide Based Gait Factors Limiting Gait Function Factors Limiting Gait Function Decreased Activity Tolerance, Decreased Strength,Limited Range of Motion,Poor Balance, Poor Safety Awareness, Respiratory Distress Comments Gait Comments stand step pivot only PT-Balance Assessment Sitting Balance and Reactions Static Sitting Balance Ability Good Dynamic Sitting Balance Ability Good Standing Balance and Reactions Static Standing Balance Ability Fair Dynamic Standing Balance Ability Poor Device Used FWW M5 PT-IP Objective Assessments Start: 05/08/22 16:04 Freq: NEEDED Status: Active Protocol: Document 05/08/22 14:05 AB (Rec: 05/08/22 16:20 AB [id number]) Orientation Orientation/Cognition Level of Alertness Alert Orientation Name,Place,Situation Language Function Ability No Deficits Noted Safety Awareness Decreased Safety Awareness Strength Lower Extremity Strength Hip 3+/5 Knee 4-/5 Sensation Assessment Sensation Gross Sensation Right LE Impaired,Left LE Impaired Light Touch Impaired Proprioception (Position) Impaired Sensation Description Numbness Comments Sensation Comments pt has peripheral neuropathy on BLE : numbness on BLE from the knees down to the feet Muscle Tone Muscle Tone WNL Yes M6 PT-IP Treatment Start: 05/08/22 16:04 Freq: NEEDED Status: Active Protocol: Document 05/10/22 11:11 KS (Rec: 05/10/22 12:39 KS [id number]) Physical Therapy Treatment Education Education Provided Safety Other Treatments Other Treatment Performed Caregiver training M7 PT-IP Assessment and Plan Start: 05/08/22 16:04 Freq: NEEDED Status: Active Protocol: Document 05/10/22 11:11 KS (Rec: 05/10/22 12:39 KS [id number]) PT Summary Assessment and Plan Potential Rehabilitation Potential Fair Summary Impairments Pain,ROM,Strength,Balance, Coordination,Sensation,Tone, Cognition,Bed Mobility, Transfers,Gait,Activity Tolerance Progress Towards Goals Slow Progress due to Medical Issues,Slow Progress due to Activity Tolerance Assessment Summary Pt w/ improved mobility today, but overall still needing Mod A and pt confirms some days he is weaker than others requiring increased assistance from family. Pts daughter was able to assist w/ transfer to BSC and back today, however pt does not have BSC or FWW at home and has to ambulate down a hallway to reach bathroom. He endorses several falls at home trying to ambulate to bathroom. Daughter is not present 24/7 and parents are unable to provide physical assist needed. At this time, safest d/c plan would be for pt to go to SNF to improve strength, activity tolerance, and functional mobility independence as he doest not have 24/7 assist at home. Goals Bed Mobility Goal Independent Transfer Goal Moderate Assistance,Front Wheeled Walker Gait Goal Moderate Assistance,Front Wheel Walker Gait Distance 50 Other Goals improve transfers and ambulation using FWW 100 ft SBA up/down 2 steps R rail SBA Days to Meet Goals 10 Frequency of Treatment Frequency Of Treatment Once a Day Treatment Plan Physical Therapy Treatment Plan Bed Mobility Training,Transfer Training,Gait Training, Therapeutic Exercise,Balance Retraining,Discharge Planning, Hot or Cold Pack,Neuromuscular Re-ed,Coordination Retraining Other Recommendations and Next Treatment Transfers, increase ambulation Focus Precautions Other Precautions droplet precautions(adenovirus ) Recommendations To Nursing Amount of Assist Needed 2 Person Assist Discharge Recommendations PT Discharge Recommendations Home with 24/7 Assist Available,Home Health,SNF Rehab Transportation Needs at Discharge Wheelchair/Cabulance
--- NOTE | 2022-05-10 11:52 | CM.DPC ---
DCP SNF vs Home Per MD, pt remains somewhat below baseline and working to reduce oxygen needs and may need another 1-2 days. PT recommending SNF but pt has been refusing SNF or HH as he has good family home support. SW requested DESK REPORTER talk to pt about setting up CG training with family to confirm they feel they can accept pt back home safely. Pt initially refused but then agreeable and DESK REPORTER worked with pt and family members and pt now agreeable to SNF if needed but does not want to go to [facility]. Pt has [facility] and SW printed off contracted local list: [facility]- left msg and faxed new referral [facility]- left msg and [facility] faxed new referral [facility]- left msg and Yan[facility] faxed new referral [facility]- [facility] kindly faxed new referral to review Plan: SW to follow closely for above SNF reviews to determine if one can accept and initiate auth today before the weekend. PASRR needed at d/c. [place] MSW
--- NOTE | 2022-05-10 13:34 | CM.DPC ---
Addendum entered by Leanne Rivas R.N. 05/10/22 15:19: [facility] called back and verbalized that they do not accept the patients insurance. ADJ Original Note: DCP Cont: [facility] and [facility] have both declined this pt. Still awaiting [facility] and [facility] SNF decision. Leanne Rivas RN/CORONAP
[2022-05-10] MEDS: ATORVASTATIN 20 MG TABLET 40 MG PO (21:10)
[2022-05-11 00:45] VITALS: BP 133/64; PULSE 86; RESP 17; TEMP 36.3; O2SAT 96
[2022-05-11 05:04] VITALS: BP 131/83; PULSE 81; RESP 16; TEMP 36.2; O2SAT 97
[2022-05-11] MEDS: LEVOTHYROXINE 75 MCG TABLET PO (05:39)
--- NOTE | 2022-05-11 06:48 | PC.NURSE ---
Dr. Orozco notified regarding a wound culture ordered by ARNP. West 05/07/22. Tried to get wound specimen earlier but his wound has already healing & scabbed over. Dr. Orozco ordered to cancel the order.
[2022-05-11 08:13] VITALS: BP 134/84; PULSE 83; RESP 18; TEMP 35.9; O2SAT 94
[2022-05-11] MEDS: FERROUS SULFATE 325 MG TABLET PO ×2 (08:19→13:22)
[2022-05-11] MEDS: FUROSEMIDE 40 MG TABLET 80 MG PO (08:19)
[2022-05-11 09:28] VITALS: O2SAT 95
[2022-05-11] MEDS: TACROLIMUS 0.5 MG CAPSULE 5 MG PO (10:31)
[2022-05-11] MEDS: TORSEMIDE 100 MG TABLET PO (10:31)
[2022-05-11] MEDS: buPROPion XL 150 MG TAB PO (10:32)
[2022-05-11] MEDS: METOPROLOL IR 25 MG TABLET 6.25 MG PO (10:32)
[2022-05-11] MEDS: ESCITALOPRAM 10 MG TABLET 20 MG PO (10:32)
[2022-05-11] MEDS: LOSARTAN 25 MG TABLET 12.5 MG PO (10:33)
[2022-05-11] MEDS: SPIRONOLACTONE 25 MG TABLET PO (10:33)
[2022-05-11] MEDS: SODIUM CHLORIDE 0.9% FLUSH 10 ML IV (10:33)
[2022-05-11] MEDS: INSULIN GLARGINE 100 UNIT/ML 3ML PEN 25 UNIT SUBCUT (10:33)
[2022-05-11 10:53] LABS: Add Manual Diff / Slide Review NO; Basophils Absolute Auto 100 /uL (0-100); Basophils Percent Auto 0.9 % (0-2); Eosinophils Absolute Auto 100 /uL (0-450); Eosinophils Percent Auto 0.9 % (2-4); Hematocrit 27.9 % (41-53); Hemoglobin 9.2 g/dL (13.5-17.5); Lymphocytes Absolute Auto 1000 /uL (1100-4500); Lymphocytes Percent Auto 12.7 % (25-40); Mean Corpuscular HGB Conc 32.8 % (30-36); Mean Corpuscular Hemoglobin 28.5 PG (26-34); Mean Corpuscular Volume 86.6 fL (80-100); Monocytes Absolute Auto 600 /uL (0-900); Monocytes Percent Auto 7.4 % (3-14); Neutrophils Absolute Auto 6200 /uL (1500-7000); Neutrophils Percent Auto 78.1 % (50-75); Platelet Count 284 X10^3/uL (150-400); Red Blood Cell Count 3.22 X10^6/uL (4.5-5.9); Red Cell Distribution Width 15.6 % (11.6-14.8); White Blood Cell Count 7.9 X10^3/uL (4.5-11.0)
[2022-05-11 11:10] LABS: BUN Creatinine Ratio 55.4 (6-22); Blood Urea Nitrogen 82 mg/dL (9-20); Calcium 8.7 mg/dL (8.4-10.2); Carbon Dioxide 27 mmol/L (22-32); Chloride 100 mmol/L (98-107); Estimated Glomerular Filt Rate 57 mL/min (>60); Glucose 167 mg/dL (70-100); HEMOLYSIS < 15 (0-50); Potassium 4.3 mmol/L (3.4-5.1); Sodium 133 mmol/L (137-145)
--- NOTE | 2022-05-11 11:10 | PT.IPTN ---
Current Diagnoses Heart failure, unspecified (05/06/22) Physical Therapy Treatment Note M2 PT-IP Current Condition Start: 05/08/22 16:04 Freq: NEEDED Status: Active Protocol: Document 05/08/22 14:05 AB (Rec: 05/08/22 16:20 AB [id number]) Physical Therapy Current Condition Current Condition Evaluation Date 05/08/22 Treatment Diagnosis CHF; respiratory failure; difficulty in walking Onset Date 05/06/22 M3 PT-IP Subjective Start: 05/08/22 16:04 Freq: NEEDED Status: Active Protocol: Document 05/11/22 10:46 KS (Rec: 05/11/22 13:33 KS [id number]) Subjective Physical Therapy Visit Type Type Treatment Note Visit Start Time 10:46 Visit Stop Time 11:10 Total Visit Minutes 24 Number of PRECISION LENS GENERATOR Visits 2 Physical Therapy Visit Comments Patient Comments agreeable to do PT M4 PT-IP Mobility and Gait Start: 05/08/22 16:04 Freq: NEEDED Status: Active Protocol: Document 05/11/22 10:46 KS (Rec: 05/11/22 13:33 KS [id number]) PT-Bed Mobility Assessment Supine to Sit Supine to Sit Standby Assistance,Head of Bed Elevated,Bedrails Sit to Supine Sit to Supine Standby Assistance,Head of Bed Elevated Scooting Scooting to Edge of Bed Standby Assistance PT-Transfer Assessment Sit to and From Stand Sit to and from Stand Contact Guard Assistance,1 Person Assistance,Use of Upper Extremities Equipment Transfer Assistive Device Gait Belt,Front Wheeled Walker Orthotic/Prosthetic Devices or Brace: No Transfers Transfer Destination Bed Transfer Technique Pt ambulated Transfer Ability Level of Assist Contact Guard Assistance,1 Person Assistance,Use of Upper Extremities Comments Mobility Comments Pt on RA today and wanting to return home. SBA for bed mobility, sup<>sit and scooting EOB. O2 90-93% on RA. Pt sit<>stand w/ FWW CGA and performed ~[address] w/ O2 desat to 87% but quickly recovered to 90. He then ambulated ~12 ft w/ FWW CGA, O2 decreased to 88% but improved to 91% w/ seated rest break. He ambulated additional 12 ft after rest break and had similar results. Pt SBA for getting back into bed and reported fatigue. Left w/ alarm on and all needs in reach. Gait Assessment Gait Gait Assistance Required: Contact Guard Assist,1 Person Assist Distance (Feet) 12 Able to Maintain Weight Bearing Status Yes During Gait Assistive Devices Assistive Device Gait Belt,Front Wheeled Walker Orthotic/Prosthetic Devices or Brace: No Gait Deviations General Gait Pattern Decreased Stride Length, Decreased Feet Clearance,Wide Based Gait Factors Limiting Gait Function Factors Limiting Gait Function Decreased Activity Tolerance, Decreased Strength,Limited Range of Motion,Poor Balance, Poor Safety Awareness, Respiratory Distress Comments Gait Comments Pt ambulated 2x12 ft w/ FWW and seated rest break in between. PT-Balance Assessment Sitting Balance and Reactions Static Sitting Balance Ability Good Dynamic Sitting Balance Ability Good Standing Balance and Reactions Static Standing Balance Ability Fair Dynamic Standing Balance Ability Fair Device Used FWW M5 PT-IP Objective Assessments Start: 05/08/22 16:04 Freq: NEEDED Status: Active Protocol: Document 05/08/22 14:05 AB (Rec: 05/08/22 16:20 AB [id number]) Orientation Orientation/Cognition Level of Alertness Alert Orientation Name,Place,Situation Language Function Ability No Deficits Noted Safety Awareness Decreased Safety Awareness Strength Lower Extremity Strength Hip 3+/5 Knee 4-/5 Sensation Assessment Sensation Gross Sensation Right LE Impaired,Left LE Impaired Light Touch Impaired Proprioception (Position) Impaired Sensation Description Numbness Comments Sensation Comments pt has peripheral neuropathy on BLE : numbness on BLE from the knees down to the feet Muscle Tone Muscle Tone WNL Yes M6 PT-IP Treatment Start: 05/08/22 16:04 Freq: NEEDED Status: Active Protocol: Document 05/11/22 10:46 KS (Rec: 05/11/22 13:33 KS [id number]) Physical Therapy Treatment Education Education Provided Safety Other Treatments Other Treatment Performed Discussed PLB M7 PT-IP Assessment and Plan Start: 05/08/22 16:04 Freq: NEEDED Status: Active Protocol: Document 05/11/22 10:46 KS (Rec: 05/11/22 13:33 KS [id number]) PT Summary Assessment and Plan Potential Rehabilitation Potential Fair Summary Impairments Pain,ROM,Strength,Balance, Coordination,Sensation,Tone, Cognition,Bed Mobility, Transfers,Gait,Activity Tolerance Progress Towards Goals Slow Progress due to Medical Issues,Slow Progress due to Activity Tolerance Assessment Summary Pt improving w/ mobility but remains limited by low tolerance for activity and O2 desaturation w/ mobility. SBA for bed mobility, CGA for sit< >stand and short distance ambulation. Pt feels eager to return home and states his family can assist him. Encouraged at least HHPT to improve activity tolerance and strength. Goals Bed Mobility Goal Independent Transfer Goal Moderate Assistance,Front Wheeled Walker Gait Goal Moderate Assistance,Front Wheel Walker Gait Distance 50 Other Goals improve transfers and ambulation using FWW 100 ft SBA up/down 2 steps R rail SBA Days to Meet Goals 10 Frequency of Treatment Frequency Of Treatment Once a Day Treatment Plan Physical Therapy Treatment Plan Bed Mobility Training,Transfer Training,Gait Training, Therapeutic Exercise,Balance Retraining,Discharge Planning, Hot or Cold Pack,Neuromuscular Re-ed,Coordination Retraining Other Recommendations and Next Treatment Transfers, increase ambulation Focus Precautions Other Precautions droplet precautions(adenovirus ) Recommendations To Nursing Amount of Assist Needed 1 Person Assist Discharge Recommendations PT Discharge Recommendations Home with 24/ Assist Available,Home Health,SNF Rehab Transportation Needs at Discharge Private Vehicle,Wheelchair/ Cabulance
[2022-05-11 12:15] VITALS: BP 149/94; PULSE 91; RESP 18; TEMP 36.2; O2SAT 93
[2022-05-11] MEDS: INSULIN LISPRO 100 UNIT/ML 3ML VIAL SUBCUT (12:19)
--- NOTE | 2022-05-11 12:21 | CM.DPC ---
Addendum entered by NANCY Alexandra 05/11/22 14:54: ADD: Per [employer] SHARPSHO[employer]ER, pt eager to return home and participated in therapy today and was able to stand and march in place and ambulated with walker with SBA and had brief desat but improved quickly and encouraged pt with HH but pt continues to decline HH at this time. Pt was fatigued and left in bed. Per MD, possible chance pt may be stable for d/c home with family assist later today. BF Original Note: DCP SNF vs Home Per MD, pt remains on oxygen 2LNC but attempting trial on room air this morning to see if he can tolerate and requested pt to work with PT today towards determining SNF vs Home, pt told MD he was agreeable. Pt with [facility] and SW had attempted following SNF referrals: [facility]- no longer contracted [facility]- decline accepting [facility]- decline accepting [facility]- no new admissions currently, just had COVID+ pts in their building SW faxed [facility] and [facility] as well as a back if SNF needed but pt has expressed desire to d/c home as well. PASRR needed if SNF accepts. Plan: SW to follow closely for further PT today to determine if pt at his marginal baseline for home or still continue with SNF search as his insurance is a barrier. NANCY Alexandra
--- NOTE | 2022-05-11 12:28 | PM.DS.1 ---
History of Present Illness History of Present Illness Date Patient Seen: 05/11/22 Chief complaint: Sent from [facility] Narrative: Per Nini West, [facility]-: Thaddeus Ferris is 52 yr old male smoker with history of hypertension, diabetes with neuropathy, proteinuria with CKD stage 2, renal biopsy/angiogram 04/11, iron-deficiency anemia, hyperlipidemia, depression presented at the request of his primary care provider for evaluation of shortness of breath increasing over the past 2 weeks or so.? He states he is gained significant weight, has noted swelling in his abdomen and lower extremities.? He becomes short of breath when he lays flat as well as with minimal exertion.? He now become so fatigued that he is using a wheelchair.? He was evaluated earlier today and had chest x-ray suggestive of pulmonary edema with bilateral pleural effusions and significantly elevated BNP.? He was sent here for further evaluation.? The patient was unable to complete ambulation trial in ED, and was satting in the low 80s on room air and would decompensate with any movement. Presented to the ED blood pressure 148/93, HR 95, R 22, O2 saturation 88% on room air. He denies any change in medications or diet.? He is had no chest pain, abd pain, nausea, vomiting, diarrhea, urinary symptoms, changes in bowel, hematemesis, melena, hematuria, fever, body aches, chills, endorses a dry, non productive, hacking cough and congestion. Denies dizziness, lightheadedness but is profoundly weak.? He denies runny nose, sore throat, notes a wound to the right foot lateral that has been there for approximately 1 month. Patient denies any recent illness injury or trauma. Patient received 40 mg of IV Lasix in ED. Upon admit to the floor patient's shortness of breath and tachypnea has resolved. Initial admit vitals temp 97.5?, BP 157/97, HR 97, RR 22, 89% O2 saturation on room air. Currently patient's BP 143/92, HR 95, R 17, O2 saturation 93% on 2 L nasal cannula. In interviewing the patient and chart review Dr. Rocha, Dr. Saunders, and Hospital admission [facility] 03/27/2022. It appears the patient is frequently noncompliant in taking his medications. When asked I received deferring answers as to compliance. ABGs pH 7.28, pCO2 50.8, PO2 31, base excess -3. Hemoglobin 8.4, hematocrit 26.1, these are lower than the patient's baseline in chart, sodium 130, potassium 5.3, BUN 65, creatinine 1.36, glucose 484, GFR WNL, albumin 2.7, calcium 8.0, corrected calcium score 9.36, patient does not have a gap, no DKA. urine was positive for blood no culture pending, TCK 339, CK-to 8.75, initial troponin 0.021 BNP 18,000, D-dimer 1338 patient's chest CTA was negative for PE, but noted cardiomegaly with severe pulmonary edema along with related moderate to severe pleural effusions and diffuse anasarca. EKG normal sinus rhythm rate 94, with nonspecific T-wave abnormalities prolonged QT 372. Patient admitted for acute respiratory failure secondary to acute onset congestive heart failure exacerbation, with hyperkalemia, hyponatremia. Discharge Providers Provider Date of admission: 05/06/22 20:20 Discharge Date: 05/11/22 Primary care physician: Rashi Andrade MD Consults: 05/06/22 21:10 Consult to Dietitian, Adult Routine Comment: Reason For Exam: uncontrolled DM, CHF, anemia 05/06/22 21:25 Consult to Respiratory Therapy Evaluate & Treat Comment: As needed Physician Instructions: Evaluate and treat 05/07/22 01:28 Consult to Wound Care Routine Comment: Consulting Provider: [facility] 05/07/22 07:00 Consult to Inpatient Wound Care Nurse Routine Comment: Reason for consultation: Pressure injury to R lateral foot. 05/08/22 11:26 Consult to Physical Therapy Evaluate & Treat Comment: Physician Instructions: Evaluate and Treat Discharge provider: Lion Regan DO Summary Hospital Course Discharge Diagnosis: Please see hospital course by problem list noted below: Hospital Course: 1. Acute respiratory failure with hypercapnic/hypoxic (acidotic), due to congestive heart failure, acute, new onset, with pulmonary edema, acute, contributing factor patient's medication noncompliance, present on admission -Patient was admitted for respiratory failure secondary to CHF exacerbation. Initially it was unclear if COPD was contributing so he was started on prednisone as well as diuresis but this was stopped. Diuretics were continued with improvement and ultimate resolution of his respiratory failure. On the day of discharge, he appeared near his baseline at the time of discharge and was able to ambulate keeping his O2 saturations above 90% on room air. -discharged on home torsemide and aldactone as well as losartan and beta fany therapy. 2. Acute congestive heart failure.? Consistent with acute systolic failure on presentation with echo showing HFrEF.? However patient's heart failure is likely chronic at this time.? He has a chronic elevation of BNP that likely will be persistent not able to reduce further based on his other comorbidities. -stress test show irreversable wall dysfunction and decreased EF, Echo shows EF of 25-30%.? This likely is a pattern of a previous myocardial infarction that the patient is unaware of.? Likely this contributed to the acute congestive heart failure and hence the presentation. -recommend outpatient follow up with cardiology. He is discharged on medical therapy including asa and statin therapy. -continue management as noted above. 3. Hyperglycemia, in the setting of insulin-dependent type 2 diabetes, with diabetic nephropathy with proteinuria, acute, present on admission-uncontrolled -initial glucose 484 -patient admitted under diabetic protocol, glucose checks a.c. HS -A1c ordered -12% -Recommend continued outpatient follow up with PCP for insulin therapy adjustments. 4. Elevated alkaline phosphate, acute, present on admission -suspect hepatobiliary, also ruled out hypertriglyceridemia- Noted abd edema, abdominal ultrasound ruled out ascites -alkaline phosphatase slowly improving over the course of admission. 5. Diabetic foot wound, right, acute, present on admission -concerned that there may be ulceration down to the bone in the lateral right foot wound beneath the scar tissue, MRI foot shows no signs of osteomyelitis -recommend outpatient follow up with wound care and to continue local care. No apparent infection at this time. 6. Iron deficiency anemia, acute on chronic, present on admission -on admit hemoglobin 8.4, hematocrit 26.1, this is decreased from baseline as documented in the chart last H&H 02/02/2022 hemoglobin 10 hematocrit 29.5.? -no obvious bleeding on admission other than small amount of hemature. -further outpatient evaluation recommended, h/h was stable here over the course of admission. Continue ferrous sulfate daily as an outpatient. 7. Chronic kidney disease stage III, acute on chronic, present on admission -creatinine was stable here over the course of his admission. Appears near baseline. 8. Hyperlipidemia secondary to type 2 diabetes, chronic, present on admission -lipid panel ordered-reasonable control based on values -continue Lipitor 9. Essential hypertension, acute on chronic, present on admission -continued medications for heart failure as discussed above. 10. Depression, chronic, present on admission -continued Lexapro and Wellbutrin 11. Positive adenovirus by PCR, consistent with patient appearing ill on initial presentation.? On droplet precautions during admission.? Clinically improving with diuresis and supportive care. 12. Subclinical hypothyroidism - recommend repeat TSH and thyroid studies as an outpatient after medical management for heart failure. Time Spent with Patient Time spent: Greater than 30 minutes Exam Vital Signs (past 8 hours): - 05/11/22 05:04 05/11/22 08:13 05/11/22 09:28 Temperature 97.1 F L 96.6 F L Pulse Rate 81 83 Respiratory Rate 16 18 Blood Pressure 131/83 134/84 Pulse Oximetry 97 94 95 Oxygen Delivery Method Nasal Cannula Oxygen Flow Rate 2.5 2.5 2.5 Fraction of Inspired Oxygen 29 05/11/22 08:35 05/11/22 12:15 Temperature 97.2 F L Pulse Rate 91 H Respiratory Rate 18 Blood Pressure 149/94 H Pulse Oximetry 93 Oxygen Delivery Method Nasal Cannula Oxygen Flow Rate 0 Fraction of Inspired Oxygen Fraction of Inspired Oxygen 29 SaO2/FiO2 Ratio 327 Oxygen Delivery Method Nasal Cannula Oxygen Flow Rate 0 Narrative Exam Narrative: General:? Pale and thin in no acute medical distress. HEENT:? Normocephalic, atraumatic, extraocular muscles intact.? Neck is supple and symmetric, trachea is midline, no adenopathy. Chest: Breathing with no nasal flaring, retractions, tachypneic or labored. Lungs:? Auscultation of all lung lau are decreased in bases.? Cardio:? regular rate and rhythm without murmur, rubs, or gallops, no carotid bruit, no cardiac pulsations present. Abdomen:? Soft nontender, negative for organomegaly, or masses. Bowel sounds are present in all 4 quadrants. Musculoskeletal:? Muscle tone is? equal,? diffuse wasting present.? Patient has equal bilateral lower extremity pulses.? Minimal edema remaining the lower extremities. Skin:? Patient has wound to the lateral side of the right foot approximately the size of a quarter, scab covering. No erythema or purulence noted. Neuro:? Alert and orientated x3, sensation to touch intact, no gross deficits noted of cranial nerves. Objective Labs Result Diagrams: 05/11/22 10:40 05/11/22 10:40 Labs: Laboratory Results - last 24 hr 05/11/22 05/11/22 10:40 10:40 WBC 7.9 RBC 3.22 L Hgb 9.2 L Hct 27.9 L MCV 86.6 MCH 28.5 MCHC 32.8 RDW 15.6 H Plt Count 284 Neut % (Auto) 78.1 H Lymph % (Auto) 12.7 L Rowan % (Auto) 7.4 Eos % (Auto) 0.9 L Baso % (Auto) 0.9 Neut # (Auto) 6200 Lymph # (Auto) 1000 L Rowan # (Auto) 600 Eos # (Auto) 100 Baso # (Auto) 100 Sodium 133 L Potassium 4.3 Chloride 100 Carbon Dioxide 27 BUN 82 H Creatinine 1.48 H Estimated GFR 57 L BUN/Creatinine Ratio 55.4 H Glucose 167 H Calcium 8.7 PFSH Medical History (Updated 05/07/22 @ 01:01 by PAZ Espitia) CKD stage 3 due to type 2 diabetes mellitus Diabetic cataract of right eye Fracture of clavicle, left, closed History of bleeding following renal biopsy Iron deficiency anemia Surgical History (Updated 05/07/22 @ 01:01 by PAZ Espitia) History of renal angiogram Family History Father Diabetes mellitus Mother Diabetes mellitus Social History household members: family Smoking Status: Current some day smoker alcohol intake: never Discharge Plan Discharge Plan Patient Disposition: Home Health Service Provider Discharge Comment: You were admitted to the hospital with shortness of breath due to a CHF exacerbation. You improved with fluid removal and did well with therapies today. New medication was sent to [facility]. Resume the medications you were taking as noted below. Discharge orders & Medications Prescriptions: New metoprolol succinate 25 mg tablet extended release 24 hr 12.5 mg PO DAILY 30 Days Qty: 15 0RF Continued (DME) insulin syr/ndl U100 half damien 0.5 mL 31 gauge x 5/16 syringe See Rx Instructions .ROUTE .MEDSUPPLY Qty: 300 3RF Rx Instructions: sliding scale 3 times a day before meals (DME) GLUCOSE TEST STRIPS Qty: 100 5RF Rx Instructions: CHECK BLOOD SUGARS THREE TIMES DAILY escitalopram oxalate 20 mg tablet 20 mg PO DAILY Qty: 90 3RF bupropion HCl 150 mg tablet extended release 24 hr 150 mg PO QAM Qty: 30 0RF (DME) Glucometer Relion Qty: 1 Rx Instructions: As directed (DME) PEN NEEDLES 32G Qty: 100 1RF Rx Instructions: USE TO CHECK BLOOD SUGARS THREE TIMES A DAY OR DIRECTED albuterol sulfate 90 mcg/actuation HFA aerosol inhaler 1 - 2 puff INHALATION Q4H PRN (Reason: Shortness Of Breath Or Wheezing) Qty: 8.5 11RF atorvastatin 40 mg tablet 40 mg PO BEDTIME Qty: 90 3RF Novolog U-100 Insulin aspart 100 unit/mL solution 10 unit subcut AC MDD 50 units Qty: 10 5RF Rx Instructions: For high carb meals, inject 10 units. For low carb meals, inject 5 units. metformin 750 mg tablet extended release 24 hr 1,500 mg PO DAILY Qty: 180 1RF (DME) blood sugar diagnostic [Blood Glucose Test] strip See Dose Instructions .ROUTE .MEDSUPPLY Qty: 100 2RF Dose Instruction: As directed Rx Instructions: TEST BLOOD SUGAR 3 TIMES A DAY aspirin 81 mg tablet,delayed release (DR/EC) 81 mg PO DAILY ferrous sulfate [FeroSul] 325 mg (65 mg iron) tablet 325 mg PO DAILY Label Comments: TAKE 1 TABLET BY MOUTH ONCE DAILY WITH BREAKFAST losartan 25 mg tablet 12.5 mg PO BID Label Comments: TAKE 1/2 (ONE-HALF) TABLET BY MOUTH TWICE DAILY metolazone 2.5 mg tablet 5 mg PO DAILY Label Comments: TAKE 2 TABLETS BY MOUTH ONCE DAILY spironolactone 25 mg tablet 25 mg PO DAILY Label Comments: TAKE 1 TABLET BY MOUTH ONCE DAILY tacrolimus 5 mg capsule 5 mg PO BID Label Comments: TAKE 1 CAPSULE BY MOUTH TWICE DAILY torsemide 100 mg tablet 100 mg PO BID Label Comments: TAKE 1 TABLET BY MOUTH TWICE DAILY cholecalciferol (vitamin D3) 1,250 mcg (50,000 unit) capsule 1,250 mcg PO WEEKLY Label Comments: TAKE 1 CAPSULE BY MOUTH ONCE A WEEK FOR 3 MONTHS Follow up/Referrals: Rashi Andrade MD [Primary Care Provider] - Diet/Activity/Treatments Diet: Diet as Tolerated Activity: As tolerated Visit Report/Discharge Packet Instructions: Chronic Kidney Disease, DI for Iron Deficiency Anemia-Adult Discharge Data Primary Care Provider: Rashi Andrade VTE Deep Vein Thrombosis/Pulmonary Embolism Present on Admission: No
== END 2022-05-11 14:00 | disposition home or self-care (01) | DRG 194 ==
LOC: ED 20:19 → AC 20:20
PROVIDERS: Emergency Medicine; Neuromusculoskeletal Medicine, Sports Medicine; Admitting Provider Nurse Practitioner Family; Emergency Provider Emergency Medicine; PCP Student in an Organized Health Care Education/Training Program; Referring Provider Emergency Medicine; Visit Provider Nurse Practitioner Family
DX: I13.0 Hypertensive heart and chronic kidney disease with heart failure and stage 1 through stage 4 chronic kidney disease, or unspecified chronic kidney disease (principal); I50.23 Acute on chronic systolic (congestive) heart failure; J96.02 Acute respiratory failure with hypercapnia; J96.01 Acute respiratory failure with hypoxia; N18.30 Chronic kidney disease, stage 3 unspecified; E11.65 Type 2 diabetes mellitus with hyperglycemia; E11.621 Type 2 diabetes mellitus with foot ulcer; D50.9 Iron deficiency anemia, unspecified; E11.22 Type 2 diabetes mellitus with diabetic chronic kidney disease; E78.5 Hyperlipidemia, unspecified; F32.A Depression, unspecified; B34.0 Adenovirus infection, unspecified; E03.8 Other specified hypothyroidism; L97.519 Non-pressure chronic ulcer of other part of right foot with unspecified severity; F17.200 Nicotine dependence, unspecified, uncomplicated; Z79.84 Long term (current) use of oral hypoglycemic drugs; Z79.4 Long term (current) use of insulin; Z20.822 Contact with and (suspected) exposure to COVID-19; E11.59 Type 2 diabetes mellitus with other circulatory complications; E11.69 Type 2 diabetes mellitus with other specified complication; E55.9 Vitamin D deficiency, unspecified; R60.0 Localized edema; N05.0 Unspecified nephritic syndrome with minor glomerular abnormality
CPT/HCPCS: 36415; 36600; 71046; 71275; 73720; 76705; 78452; 80048; 80053; 80061; 80076; 80197; 81003; 81015; 82150; 82306; 82550; 82553; 82805; 82962; 82977; 83036; 83540; 83550; 83605; 83690; 83735; 83880; 84145; 84439; 84443; 84481; 84484; 85025; 85027; 85379; 85610; 86140; 87338; 87633; 87635; 93005; 93010; 93017; 93306; 94762; 96374; 97116; 97162; 97530; 99283; 99285; C9803; A9502; A9579; C9113; J1815; J1940; J2785; J7507; Q9967

== ENCOUNTER → 2022-05-13 08:21 | Outpatient (CLI) | payer OTHER, MEDICAID, SELFPAY ==
[2022-05-06 20:43] VITALS: BMI 25.0
[2022-05-13 08:44] LABS: Hemoglobin A1C% w Est Avg Glu 11.2 % (4.0-6.0)
[2022-05-14 09:36] LABS: Tacrolimus 4.6 ng/mL (2.0-20.0)
== END ==
PROVIDERS: PCP Student in an Organized Health Care Education/Training Program; Referring Provider Internal Medicine Nephrology; Visit Provider Internal Medicine Nephrology
DX: E11.21 Type 2 diabetes mellitus with diabetic nephropathy (principal); N05.0 Unspecified nephritic syndrome with minor glomerular abnormality; Z79.4 Long term (current) use of insulin
CPT/HCPCS: 36415; 80197; 83036

== ENCOUNTER → 2022-05-20 08:18 | Outpatient (CLI) | payer OTHER, MEDICAID, SELFPAY ==
[2022-05-06 20:43] VITALS: BMI 25.0
[2022-05-21 12:17] LABS: Tacrolimus 3.8 ng/mL (2.0-20.0)
== END ==
PROVIDERS: PCP Student in an Organized Health Care Education/Training Program; Referring Provider Internal Medicine Nephrology; Visit Provider Internal Medicine Nephrology
DX: N05.0 Unspecified nephritic syndrome with minor glomerular abnormality (principal)
CPT/HCPCS: 36415; 80197

== ENCOUNTER 2022-05-22 09:41 | Emergency (ER) | payer OTHER, MEDICAID, SELFPAY ==
[2022-05-06 20:43] VITALS: BMI 25.0
[2022-05-22] VITALS (17 sets, daily range): BP systolic 75–149; BP diastolic 43–94; PULSE 86–94; RESP 16–32; TEMP 36.5; O2SAT 95–99; BMI 23.1
--- NOTE | 2022-05-22 10:24 | DI.RAD.S_ITS ---
PROCEDURE: XR CHEST 1V INDICATIONS: chest pain TECHNIQUE: One view of the chest was acquired. COMPARISON: [facility], CT, CT ANGIO CHEST PE PROTOCOL, 05/06/2022, 19:17. [facility], CR, XR CHEST 2V, 05/06/2022, 15:10. [facility], CR, XR CHEST 1V, 09/17/2019, 22:17. FINDINGS: Surgical changes and devices: None. Lungs and pleura: Lungs are clear. No pleural effusions or pneumothorax. Mediastinum: Mediastinal contours appear normal. Heart size is normal. Bones and chest wall: No suspicious bony lesions. Overlying soft tissues appear unremarkable. IMPRESSION: No acute cardiopulmonary abnormality. Dictated by: Cristhian Gonzalez M.D. on 05/22/2022 at 9:44 Approved by: Cristhian Gonzalez M.D. on 05/22/2022 at 9:45
--- NOTE | 2022-05-22 10:36 | PC.NURSE ---
RN did blood glucose check this [employer] charted it.
--- NOTE | 2022-05-22 10:43 | PC.NURSE ---
Pts daughter just informed me that he had a seizure last night as well.
[2022-05-22 10:46] LABS: Add Manual Diff / Slide Review NO; Basophils Absolute Auto 100 /uL (0-100); Basophils Percent Auto 1.3 % (0-2); Eosinophils Absolute Auto 100 /uL (0-450); Eosinophils Percent Auto 1.1 % (2-4); Hematocrit 31.6 % (41-53); Hemoglobin 10.5 g/dL (13.5-17.5); Lymphocytes Absolute Auto 1600 /uL (1100-4500); Lymphocytes Percent Auto 18.6 % (25-40); Mean Corpuscular HGB Conc 33.1 % (30-36); Mean Corpuscular Hemoglobin 28.5 PG (26-34); Monocytes Absolute Auto 700 /uL (0-900); Monocytes Percent Auto 8.6 % (3-14); Neutrophils Absolute Auto 6100 /uL (1500-7000); Neutrophils Percent Auto 70.4 % (50-75); Platelet Count 140 X10^3/uL (150-400); Red Blood Cell Count 3.68 X10^6/uL (4.5-5.9); Red Cell Distribution Width 15.3 % (11.6-14.8); White Blood Cell Count 8.7 X10^3/uL (4.5-11.0)
[2022-05-22 10:52] LABS: Prothrombin Time 11.3 SECONDS (10.1-12.7)
--- NOTE | 2022-05-22 10:52 | ED_ITS ---
HPI - Seizure General Chief Complaint: Seizure Stated Complaint: passed out last night, dizziness when walking Time Seen by Provider: 05/22/22 10:49 Source: patient Mode of arrival: Wheelchair Limitations: no limitations History of Present Illness HPI Narrative: The patient was walking into his bathroom yesterday evening. He developed sudden syncope, he fell to his buttocks then fell backwards hitting his head. His witnessed the situation, he was quickly conscious again. He is no headache, visual changes or neck pain. No peripheral weakness or numbness. He has a history of seizure disorder for 2-3 years. He has been off antiepileptics for about 1 year, since his neurologist left the region. He had a seizure for about 1 minute after the fall/head injury. Last seizure was 1 year ago. He is up and ambulatory this morning without extremity pain, no peripheral weakness. He is no headaches, no visual changes, and no confusion. He speaks clearly now. He Does not drink alcohol, he is a former smoker. He does not use drugs. He denies recent illness. He has known history of diabetes with neuropathy, CKD, iron deficiency anemia, hypertension. He was admitted this facility about 3 weeks ago with CHF and acute respiratory failure. Echo revealed concentric LVH with EF 25-30%. There is moderate to severe global hypokinesis of the left ventricle. Myocardial perfusion study was consistent with a moderate to large infarction to the inferior lateral wall of the left ventricle. Related Data Home Medications Medication Instructions Recorded Confirmed Glucometer Relion #1 ea 05/21/19 05/21/22 aspirin 81 mg tablet,delayed 81 mg PO DAILY 07/27/19 05/21/22 release cholecalciferol (vitamin D3) 1,250 1,250 mcg PO WEEKLY 05/06/22 05/21/22 mcg (50,000 unit) capsule ferrous sulfate 325 mg (65 mg 325 mg PO DAILY 05/06/22 05/21/22 iron) tablet (FeroSul) losartan 25 mg tablet 12.5 mg PO BID 05/06/22 05/21/22 metolazone 2.5 mg tablet 5 mg PO DAILY 05/06/22 05/21/22 spironolactone 25 mg tablet 25 mg PO DAILY 05/06/22 05/21/22 tacrolimus 5 mg capsule, 5 mg PO BID 05/06/22 05/21/22 immediate-release torsemide 100 mg tablet 100 mg PO BID 05/06/22 05/21/22 Previous Rx's Medication Instructions Recorded blood sugar diagnostic (Blood #100 ea 06/02/18 Glucose Test strips) PEN NEEDLES #100 ea 05/21/19 insulin syr/ndl U100 half damien 0.5 #300 ea 09/29/19 mL 31 gauge x 5/16 GLUCOSE TEST STRIPS #100 ea 03/21/20 albuterol sulfate 90 mcg/actuation 1 - 2 puff inhalation Q4H PRN 05/31/21 aerosol inhaler Shortness Of Breath Or Wheezing #8.5 grams atorvastatin 40 mg tablet 40 mg PO BEDTIME #90 tabs 05/31/21 insulin aspart U-100 100 unit/mL 10 unit (0.1 mL) SUBCUT AC #10 mL 05/31/21 subcutaneous solution (Novolog U-100 Insulin aspart) metformin 750 mg tablet,extended 1,500 mg PO DAILY #180 tabs 05/31/21 release 24 hr escitalopram oxalate 20 mg tablet 20 mg PO DAILY #90 tabs 07/27/21 bupropion HCl 150 mg 24 hr tablet, 150 mg PO QAM #30 tabs 01/31/22 extended release metoprolol succinate 25 mg 12.5 mg PO DAILY 30 days #15 tabs 05/11/22 tablet,extended release 24 hr carbamazepine 200 mg 200 mg PO BID #60 tabs 05/22/22 tablet,extended release,12 hr (Tegretol XR) lamotrigine 100 mg tablet 100 mg PO BID #180 tabs 05/22/22 Allergies Allergy/AdvReac Type Severity Reaction Status Date / Time No Known Drug Allergies Allergy Verified 05/22/22 10:21 Review of Systems Review of Systems ROS Unobtainable: All systems reviewed & are unremarkable except as noted in HPI and below Constitutional Constitutional: Denies body ache(s), Denies chills, Denies fatigue and Denies fever(s) Eyes Eyes: Denies blurry vision and Denies change in vision ENT Ears, Nose, Mouth, and Throat: Denies vertigo, Denies dizziness, Denies mouth lesions and Denies sinus pain Cardiovascular Cardiovascular: Denies chest pain, Reports syncope, Denies rapid heart rate, Denies pedal edema and Denies irregular heart rhythm Respiratory Respiratory: Denies chest congestion and Denies cough Gastrointestinal Gastrointestinal: Denies abdominal pain, Denies nausea and Denies vomiting Genitourinary Genitourinary: Denies dysuria Musculoskeletal Musculoskeletal: Denies abnormal gait, Denies arthralgias, Denies back pain and Denies myalgias Integumentary/Breasts Skin/Breast: Denies lesions, Denies rash and Denies skin swelling Neurologic Neurologic: Denies abnormal gait, Denies confusion, Denies vertigo, Denies dizziness, Reports syncope and Denies memory loss Psychiatric Psychiatric: Denies anxiety, Denies confusion, Denies depression and Denies memory loss Endocrine Endocrine: Denies fatigue Hematologic/Lymphatic Hematologic/Lymphatic: Denies easy bruising On Anticoagulants: No Allergic/Immunologic Allergic/Immunologic: Reports system reviewed and no additional complaints, except as documented Patient History Medical History (Updated 05/22/22 @ 14:09 by Edy Byers MD) CKD stage 3 due to type 2 diabetes mellitus Diabetic cataract of right eye Fracture of clavicle, left, closed History of bleeding following renal biopsy Iron deficiency anemia Seizure disorder Surgical History History of renal angiogram Family History Father Diabetes mellitus Mother Diabetes mellitus Social History household members: family Smoking Status: Current some day smoker alcohol intake: never Smoking Status: Current some day smoker alcohol intake frequency: holidays/special occasions only Substance Use Type: does not use Exam Initial Vital Signs Initial Vital Signs: Vital Signs Temperature 97.7 F 05/22/22 10:21 Pulse Rate 94 H 05/22/22 10:21 Respiratory Rate 16 05/22/22 10:21 Blood Pressure 75/43 L 05/22/22 10:21 Pulse Oximetry 98 05/22/22 10:21 Oxygen Delivery Method 05/22/22 10:21 Const General: cooperative, comfortable and frail appearing Nutritional Appearance: underweight HENMT Head: normal to inspection, normocephalic and atraumatic Ears: TM's normal bilaterally Mouth: oral mucosae normal Throat: posterior oropharynx normal Eyes General: Yes appearance normal, both eyes and all related structures Neck Neck: normal visual inspection, full ROM and No tender Thyroid: thyroid normal Chest Chest: normal inspection of the chest Resp Effort & Inspection: normal respiratory effort Auscultation: clear to auscultation bilaterally Cardio Palpation: normal PMI Rate: regular rate Rhythm: regular rhythm and abnormal rhythm Heart Sounds: S1 normal, S2 normal and no murmurs Pulses: radial pulses present GI Inspection: normal to inspection Palpation: soft Auscultation: normal bowel sounds Back/Spine/Pelvis Back: normal to inspection Cervical Spine: normal cervical lordosis Thoracic/Lumbar Spine: thoracic and lumbar spine normal to inspection Skin General: no rashes or lesions noted Neuro General: patient alert, patient awake, patient oriented x3 and no focal motor deficits Course Course Course Narrative: Patient has diabetes, renal failure, and known cardiac disease. He had syncope and seizure yesterday. He has been off seizure medications for about 1 year. Seizure activities was not mentioned in his recent admission. Dr. Andrade saw the patient yesterday. Cardiology consultation has been initiated. Dr. Andrade was surprised to hear these off seizure medications and has immediately agreed to refilling Lamictal and Carbamazepine. Orders Ordered: ED Orders 05/22/22 10:24 XR chest 1V Stat EKG-12 Lead Stat 05/22/22 10:35 Complete Blood Count AUTO DIFF Stat Comprehensive Metabolic Panel Stat Lipase Stat Magnesium Stat Partial Thromboplastin Time Stat Prothrombin Time INR Stat Troponin & CK Cardiac Panel Stat 05/22/22 11:02 CT head/brain wo con Stat 05/22/22 13:06 NT-proBNP (BNP-Adult 18+) Stat Trop I [Troponin I] Stat Discontinued Medications Lamotrigine (Lamotrigine 100 Mg Tablet) 200 mg PO NOW ONE Stop: 05/22/22 13:29 Last Admin: 05/22/22 13:37 Dose: 200 mg Documented By: KACEY Vital Signs Vital signs: Vital Signs - 8 hr 05/22/22 10:45 05/22/22 10:45 05/22/22 11:00 Pulse Rate 88 Respiratory Rate 26 H Blood Pressure 121/74 122/78 Pulse Oximetry 96 05/22/22 11:00 05/22/22 11:15 05/22/22 11:30 Pulse Rate 87 91 H Respiratory Rate 21 21 Blood Pressure 141/87 H Pulse Oximetry 97 99 05/22/22 11:30 05/22/22 11:45 05/22/22 11:45 Pulse Rate 90 92 H Respiratory Rate 20 18 Blood Pressure 145/94 H Pulse Oximetry 95 96 05/22/22 12:00 05/22/22 12:00 05/22/22 12:15 Pulse Rate 92 H Respiratory Rate 19 Blood Pressure 149/94 H 144/94 H Pulse Oximetry 97 05/22/22 12:15 05/22/22 12:30 05/22/22 12:30 Pulse Rate 90 90 Respiratory Rate 20 20 Blood Pressure 144/89 H Pulse Oximetry 97 99 05/22/22 12:45 05/22/22 12:45 05/22/22 13:00 Pulse Rate 89 Respiratory Rate 20 Blood Pressure 138/90 133/85 Pulse Oximetry 98 05/22/22 13:00 05/22/22 13:15 05/22/22 13:15 Pulse Rate 88 87 Respiratory Rate 20 22 Blood Pressure 138/87 Pulse Oximetry 98 98 05/22/22 13:30 05/22/22 13:30 05/22/22 13:45 Pulse Rate 89 Respiratory Rate 19 Blood Pressure 116/81 129/87 Pulse Oximetry 99 05/22/22 13:45 05/22/22 14:00 05/22/22 14:00 Pulse Rate 86 86 Respiratory Rate 26 H 24 Blood Pressure 127/86 Pulse Oximetry 99 97 MDM - Seizure Lab Data Result diagrams: 05/22/22 10:35 05/22/22 10:35 Labs: Lab Results 05/22/22 05/22/22 05/22/22 Range/Units 10:35 10:35 10:35 WBC 8.7 (4.5-11.0) X10^3/uL RBC 3.68 L (4.5-5.9) X10^6/uL Hgb 10.5 L (13.5-17.5) g/dL Hct 31.6 L (41-53) % MCV 86.0 (80-100) fL MCH 28.5 (26-34) PG MCHC 33.1 (30-36) % RDW 15.3 H (11.6-14.8) % Plt Count 140 L (150-400) X10^3/uL Neut % (Auto) 70.4 (50-75) % Lymph % (Auto) 18.6 L (25-40) % [place] % (Auto) 8.6 (3-14) % Eos % (Auto) 1.1 L (2-4) % Baso % (Auto) 1.3 (0-2) % Neut # (Auto) 6100 (9091-2844) /uL Lymph # (Auto) 1600 (8160-1424) /uL [place] # (Auto) 700 (0-900) /uL Eos # (Auto) 100 (0-450) /uL Baso # (Auto) 100 (0-100) /uL PT 11.3 (10.1-12.7) SECONDS INR 1.0 (0.9-1.3) APTT 29 (26-36) SECONDS Sodium 129 L (137-145) mmol/L Potassium 4.3 (3.4-5.1) mmol/L Chloride 86 L (98-107) mmol/L Carbon Dioxide 33 H (22-32) mmol/L BUN 90 H (9-20) mg/dL Creatinine 2.06 H (0.66-1.25) mg/dL Estimated GFR 39 L (>60) mL/min BUN/Creatinine Ratio 43.7 H (6-22) Glucose 258 H (70-100) mg/dL Calcium 8.6 (8.4-10.2) mg/dL Magnesium 1.0 L (1.6-2.3) mg/dL Total Bilirubin 0.5 (0.2-1.3) mg/dL AST 40 (17-59) IU/L ALT 37 (<50) IU/L Alkaline Phosphatase 138 H (38-126) U/L Total Creatine Kinase 151 (55-170) U/L CK-MB (CK-2) 3.47 H (<2.37) ng/mL CK-MB (CK-2) Rel Index 2.3 (1.5-5.0) % Troponin I 0.044 H (0.01-0.034) ng/mL NT-Pro-B Natriuret Pep (<125) pg/mL Total Protein 7.9 (6.3-8.2) g/dL Albumin 3.5 (3.5-5.0) g/dL Globulin 4.4 H (1.7-4.1) g/dL Albumin/Globulin Ratio 0.8 L (1.0-2.8) Lipase 62 (23-300) U/L 05/22/22 05/22/22 Range/Units 13:06 13:06 WBC (4.5-11.0) X10^3/uL RBC (4.5-5.9) X10^6/uL Hgb (13.5-17.5) g/dL Hct (41-53) % MCV (80-100) fL MCH (26-34) PG MCHC (30-36) % RDW (11.6-14.8) % Plt Count (150-400) X10^3/uL Neut % (Auto) (50-75) % Lymph % (Auto) (25-40) % [place] % (Auto) (3-14) % Eos % (Auto) (2-4) % Baso % (Auto) (0-2) % Neut # (Auto) (1023-6178) /uL Lymph # (Auto) (7982-0202) /uL [place] # (Auto) (0-900) /uL Eos # (Auto) (0-450) /uL Baso # (Auto) (0-100) /uL PT (10.1-12.7) SECONDS INR (0.9-1.3) APTT (26-36) SECONDS Sodium (137-145) mmol/L Potassium (3.4-5.1) mmol/L Chloride (98-107) mmol/L Carbon Dioxide (22-32) mmol/L BUN (9-20) mg/dL Creatinine (0.66-1.25) mg/dL Estimated GFR (>60) mL/min BUN/Creatinine Ratio (6-22) Glucose (70-100) mg/dL Calcium (8.4-10.2) mg/dL Magnesium (1.6-2.3) mg/dL Total Bilirubin (0.2-1.3) mg/dL AST (17-59) IU/L ALT (<50) IU/L Alkaline Phosphatase (38-126) U/L Total Creatine Kinase (55-170) U/L CK-MB (CK-2) (<2.37) ng/mL CK-MB (CK-2) Rel Index (1.5-5.0) % Troponin I 0.033 (0.01-0.034) ng/mL NT-Pro-B Natriuret Pep 58196 H (<125) pg/mL Total Protein (6.3-8.2) g/dL Albumin (3.5-5.0) g/dL Globulin (1.7-4.1) g/dL Albumin/Globulin Ratio (1.0-2.8) Lipase (23-300) U/L Point of Care Testing Glucose POC [address] scan - head: Radiologist's Impression: No acute intracranial hemorrhage or other significant abnormalities. Chest x-ray: Radiologist's Impression: No acute cardiopulmonary disease. ECG Data Attestation: I personally reviewed and interpreted this ECG as follows: (Normal sinus rhythm rate 89 beats per minute. Normal intervals. No ectopy. No acute ST T wave changes. Normal study.) Discharge Plan Departure Patient Disposition: Home Clinical Impression: Seizure, Diabetes mellitus, Syncope, CAD (coronary artery disease) Instructions: DI for Seizure Disorder -- Adult Activity Restrictions/Additional Instructions: Continue your current medications. Dr. Andrade has ordered cardiology consultation, I suspect you are aware this. Dr. Andrade is also worried your seizure medications. He is refilled carbamazepine and Lamictal, prescriptions for called to your pharmacy. Return here as needed. Prescriptions: No Action (DME) insulin syr/ndl U100 half damien 0.5 mL 31 gauge x 5/16 syringe See Rx Instructions .ROUTE .MEDSUPPLY Qty: 300 3RF Rx Instructions: sliding scale 3 times a day before meals (DME) GLUCOSE TEST STRIPS Qty: 100 5RF Rx Instructions: CHECK BLOOD SUGARS THREE TIMES DAILY escitalopram oxalate 20 mg tablet 20 mg PO DAILY Qty: 90 3RF bupropion HCl 150 mg tablet extended release 24 hr 150 mg PO QAM Qty: 30 0RF (DME) Glucometer Relion Qty: 1 Rx Instructions: As directed (DME) PEN NEEDLES 32G Qty: 100 1RF Rx Instructions: USE TO CHECK BLOOD SUGARS THREE TIMES A DAY OR DIRECTED albuterol sulfate 90 mcg/actuation HFA aerosol inhaler 1 - 2 puff INHALATION Q4H PRN (Reason: Shortness Of Breath Or Wheezing) Qty: 8.5 11RF atorvastatin 40 mg tablet 40 mg PO BEDTIME Qty: 90 3RF Novolog U-100 Insulin aspart 100 unit/mL solution 10 unit subcut AC MDD 50 units Qty: 10 5RF Rx Instructions: For high carb meals, inject 10 units. For low carb meals, inject 5 units. metformin 750 mg tablet extended release 24 hr 1,500 mg PO DAILY Qty: 180 1RF (DME) blood sugar diagnostic [Blood Glucose Test] strip See Dose Instructions .ROUTE .MEDSUPPLY Qty: 100 2RF Dose Instruction: As directed Rx Instructions: TEST BLOOD SUGAR 3 TIMES A DAY aspirin 81 mg tablet,delayed release (DR/EC) 81 mg PO DAILY lamotrigine 100 mg tablet 100 mg PO BID Qty: 180 1RF carbamazepine [Tegretol XR] 200 mg tablet extended release 12 hr 200 mg PO BID Qty: 60 0RF ferrous sulfate [FeroSul] 325 mg (65 mg iron) tablet 325 mg PO DAILY Label Comments: TAKE 1 TABLET BY MOUTH ONCE DAILY WITH BREAKFAST losartan 25 mg tablet 12.5 mg PO BID Label Comments: TAKE 1/2 (ONE-HALF) TABLET BY MOUTH TWICE DAILY metolazone 2.5 mg tablet 5 mg PO DAILY Label Comments: TAKE 2 TABLETS BY MOUTH ONCE DAILY spironolactone 25 mg tablet 25 mg PO DAILY Label Comments: TAKE 1 TABLET BY MOUTH ONCE DAILY tacrolimus 5 mg capsule 5 mg PO BID Label Comments: TAKE 1 CAPSULE BY MOUTH TWICE DAILY torsemide 100 mg tablet 100 mg PO BID Label Comments: TAKE 1 TABLET BY MOUTH TWICE DAILY cholecalciferol (vitamin D3) 1,250 mcg (50,000 unit) capsule 1,250 mcg PO WEEKLY Label Comments: TAKE 1 CAPSULE BY MOUTH ONCE A WEEK FOR 3 MONTHS metoprolol succinate 25 mg tablet extended release 24 hr 12.5 mg PO DAILY 30 Days Qty: 15 0RF Referrals: Rashi Andrade MD [Primary Care Provider] - Visit Report Forms: Patient Portal/API
[2022-05-22 10:55] LABS: PTT Partial Thromboplastin Tim 29 SECONDS (26-36)
[2022-05-22 10:58] LABS: Alanine Aminotransferase 37 IU/L (<50); Albumin 3.5 g/dL (3.5-5.0); Albumin Globulin Ratio 0.8 (1.0-2.8); Alkaline Phosphatase 138 U/L (38-126); Aspartate Aminotransferase 40 IU/L (17-59); BUN Creatinine Ratio 43.7 (6-22); Bilirubin Total 0.5 mg/dL (0.2-1.3); Blood Urea Nitrogen 90 mg/dL (9-20); Calcium 8.6 mg/dL (8.4-10.2); Carbon Dioxide 33 mmol/L (22-32); Chloride 86 mmol/L (98-107); Creatine Kinase 151 U/L (55-170); Estimated Glomerular Filt Rate 39 mL/min (>60); Globulin 4.4 g/dL (1.7-4.1); Glucose 258 mg/dL (70-100); HEMOLYSIS < 15 (0-50); Lipase 62 U/L (23-300); Potassium 4.3 mmol/L (3.4-5.1); Sodium 129 mmol/L (137-145); Total Protein 7.9 g/dL (6.3-8.2)
--- NOTE | 2022-05-22 11:02 | DI.CT.S_ITS ---
PROCEDURE: CT HEAD/BRAIN WO CON INDICATIONS: Syncope. Head injury. Brief seizure. TECHNIQUE: Noncontrast 4.5 mm thick angled axial sections acquired from the foramen magnum to the vertex, with coronal and sagittal reformats. For radiation dose reduction, the following was used: automated exposure control, adjustment of mA and/or kV according to patient size. COMPARISON: [facility], MR, MR HEAD/BRAIN WO/W CON, 09/30/2019, 7:53. [facility], CT, CT HEAD/BRAIN WO CON, 09/17/2019, 22:24. [facility], CT, CT HEAD/BRAIN WO CON, 05/18/2019, 19:04. FINDINGS: Image quality: Excellent. CSF spaces: Basal cisterns are patent. No extra-axial fluid collections. Ventricles are normal in size and shape. Brain: No midline shift. No intracranial masses or hemorrhage. Johnson-white matter interface is normal. Skull and face: Calvarium and visualized facial bones are intact, without suspicious lesions. Sinuses: Visualized sinuses and mastoids are clear. IMPRESSION: Unremarkable noncontrast head CT, without acute intracranial hemorrhage or other significant abnormality identified. Dictated by: Jimbo Navarro M.D. on 05/22/2022 at 10:25 Approved by: Jimbo Navarro M.D. on 05/22/2022 at 10:27
[2022-05-22 11:09] LABS: Troponin I 0.044 ng/mL (0.01-0.034)
[2022-05-22 11:13] LABS: CKMB % Relative Index 2.3 % (1.5-5.0); Creatine Kinase MB 3.47 ng/mL (<2.37)
[2022-05-22] MEDS: lamoTRIgine 100 MG TABLET 200 MG PO (13:37)
[2022-05-22 13:51] LABS: NT-proBNP (BNP-Adult 18+) 10000 pg/mL (<125)
[2022-05-22 13:53] LABS: Troponin I 0.033 ng/mL (0.01-0.034)
== END 2022-05-22 14:22 | disposition home or self-care (01) ==
PROVIDERS: Emergency Provider Emergency Medicine; PCP Student in an Organized Health Care Education/Training Program
DX: R56.9 Unspecified convulsions (principal); R55 Syncope and collapse; I25.10 Atherosclerotic heart disease of native coronary artery without angina pectoris; E11.9 Type 2 diabetes mellitus without complications; S09.90XA Unspecified injury of head, initial encounter; R07.9 Chest pain, unspecified; I50.9 Heart failure, unspecified
CPT/HCPCS: 36415; 70450; 71045; 80053; 82550; 82553; 82962; 83690; 83735; 83880; 84484; 85025; 85610; 85730; 93005; 99284

== ENCOUNTER → 2022-05-27 08:49 | Outpatient (CLI) | payer OTHER, MEDICAID, SELFPAY ==
[2022-05-06 20:43] VITALS: BMI 25.0
[2022-05-28 09:36] LABS: Tacrolimus 7.5 ng/mL (2.0-20.0)
== END ==
PROVIDERS: PCP Student in an Organized Health Care Education/Training Program; Referring Provider Internal Medicine Nephrology; Visit Provider Internal Medicine Nephrology
DX: N05.0 Unspecified nephritic syndrome with minor glomerular abnormality (principal)
CPT/HCPCS: 36415; 80197

== ENCOUNTER → 2022-06-18 08:15 | Outpatient (CLI) | payer OTHER, MEDICAID, SELFPAY ==
[2022-05-06 20:43] VITALS: BMI 25.0
[2022-06-19 07:53] LABS: Tacrolimus None Detected ng/mL (2.0-20.0)
== END ==
PROVIDERS: PCP Student in an Organized Health Care Education/Training Program; Referring Provider Internal Medicine Nephrology; Visit Provider Internal Medicine Nephrology
DX: N05.0 Unspecified nephritic syndrome with minor glomerular abnormality (principal)
CPT/HCPCS: 36415; 80197

== ENCOUNTER → 2022-06-25 11:22 | Outpatient (CLI) | payer OTHER, MEDICAID, SELFPAY ==
[2022-05-06 20:43] VITALS: BMI 25.0
[2022-06-26 08:53] LABS: Tacrolimus 2.2 ng/mL (2.0-20.0)
== END ==
PROVIDERS: PCP Student in an Organized Health Care Education/Training Program; Referring Provider Internal Medicine Nephrology; Visit Provider Internal Medicine Nephrology
DX: N05.0 Unspecified nephritic syndrome with minor glomerular abnormality (principal)
CPT/HCPCS: 36415; 80197

== ENCOUNTER → 2022-07-01 11:09 | Outpatient (CLI) | payer OTHER, MEDICAID, SELFPAY ==
[2022-05-06 20:43] VITALS: BMI 25.0
[2022-07-01 12:07] LABS: Add Manual Diff / Slide Review NO; Basophils Absolute Auto 100 /uL (0-100); Basophils Percent Auto 0.8 % (0-2); Eosinophils Absolute Auto 100 /uL (0-450); Eosinophils Percent Auto 1.5 % (2-4); Hematocrit 22.8 % (41-53); Hemoglobin 7.9 g/dL (13.5-17.5); Lymphocytes Absolute Auto 1000 /uL (1100-4500); Lymphocytes Percent Auto 10.9 % (25-40); Mean Corpuscular HGB Conc 34.6 % (30-36); Mean Corpuscular Hemoglobin 29.6 PG (26-34); Mean Corpuscular Volume 85.4 fL (80-100); Monocytes Absolute Auto 800 /uL (0-900); Monocytes Percent Auto 9.2 % (3-14); Neutrophils Absolute Auto 6800 /uL (1500-7000); Neutrophils Percent Auto 77.6 % (50-75); Platelet Count 160 X10^3/uL (150-400); Red Blood Cell Count 2.68 X10^6/uL (4.5-5.9); Red Cell Distribution Width 15.6 % (11.6-14.8); White Blood Cell Count 8.8 X10^3/uL (4.5-11.0)
[2022-07-01 12:19] LABS: Alanine Aminotransferase 26 IU/L (<50); Albumin 3.1 g/dL (3.5-5.0); Albumin Globulin Ratio 0.9 (1.0-2.8); Alkaline Phosphatase 133 U/L (38-126); Aspartate Aminotransferase 24 IU/L (17-59); Bilirubin Total 0.2 mg/dL (0.2-1.3); Bilirubin Unconjugated 0.2 mg/dL (0.0-1.1); Globulin 3.5 g/dL (1.7-4.1); HEMOLYSIS < 15 (0-50); Total Protein 6.6 g/dL (6.3-8.2)
[2022-07-01 12:26] LABS: Alanine Aminotransferase 26 IU/L (<50); Albumin 3.1 g/dL (3.5-5.0); Albumin Globulin Ratio 0.9 (1.0-2.8); Alkaline Phosphatase 134 U/L (38-126); Aspartate Aminotransferase 25 IU/L (17-59); BUN Creatinine Ratio 38.9 (6-22); Bilirubin Total 0.2 mg/dL (0.2-1.3); Blood Urea Nitrogen 61 mg/dL (9-20); Calcium 8.3 mg/dL (8.4-10.2); Carbon Dioxide 26 mmol/L (22-32); Chloride 98 mmol/L (98-107); Estimated Glomerular Filt Rate 53 mL/min (>60); Globulin 3.4 g/dL (1.7-4.1); Glucose 189 mg/dL (70-100); HEMOLYSIS < 15 (0-50); Potassium 3.9 mmol/L (3.4-5.1); Sodium 134 mmol/L (137-145); Total Protein 6.5 g/dL (6.3-8.2)
[2022-07-02 04:08] LABS: Fructosamine 275 umol/L (0-285)
[2022-07-02 10:12] LABS: Tacrolimus 1.5 ng/mL (2.0-20.0)
== END ==
PROVIDERS: PCP Student in an Organized Health Care Education/Training Program; Referring Provider Internal Medicine Nephrology; Visit Provider Internal Medicine Nephrology
DX: N06.9 Isolated proteinuria with unspecified morphologic lesion (principal); E11.22 Type 2 diabetes mellitus with diabetic chronic kidney disease; N18.2 Chronic kidney disease, stage 2 (mild); E11.9 Type 2 diabetes mellitus without complications; G40.909 Epilepsy, unspecified, not intractable, without status epilepticus; R60.1 Generalized edema; N18.30 Chronic kidney disease, stage 3 unspecified; S91.309A Unspecified open wound, unspecified foot, initial encounter; Z79.4 Long term (current) use of insulin; Z79.899 Other long term (current) drug therapy
CPT/HCPCS: 36415; 80053; 80076; 80197; 82985; 85025

== ENCOUNTER → 2022-07-10 14:29 | Outpatient (CLI) | payer OTHER, MEDICAID, SELFPAY ==
[2022-05-06 20:43] VITALS: BMI 25.0
[2022-07-10 16:48] LABS: Alanine Aminotransferase 20 IU/L (<50); Albumin 3.1 g/dL (3.5-5.0); Albumin Globulin Ratio 0.8 (1.0-2.8); Alkaline Phosphatase 161 U/L (38-126); Aspartate Aminotransferase 22 IU/L (17-59); BUN Creatinine Ratio 35.1 (6-22); Bilirubin Total 0.3 mg/dL (0.2-1.3); Blood Urea Nitrogen 54 mg/dL (9-20); Calcium 8.3 mg/dL (8.4-10.2); Carbon Dioxide 27 mmol/L (22-32); Chloride 97 mmol/L (98-107); Estimated Glomerular Filt Rate 55 mL/min (>60); Globulin 3.7 g/dL (1.7-4.1); Glucose 133 mg/dL (70-100); HEMOLYSIS < 15 (0-50); Potassium 3.7 mmol/L (3.4-5.1); Sodium 136 mmol/L (137-145); Total Protein 6.8 g/dL (6.3-8.2)
[2022-07-11 16:07] LABS: Tacrolimus 5.7 ng/mL (2.0-20.0)
== END ==
PROVIDERS: PCP Student in an Organized Health Care Education/Training Program; Referring Provider Internal Medicine Nephrology; Visit Provider Internal Medicine Nephrology
DX: N06.9 Isolated proteinuria with unspecified morphologic lesion (principal); E11.22 Type 2 diabetes mellitus with diabetic chronic kidney disease; N18.2 Chronic kidney disease, stage 2 (mild); Z79.4 Long term (current) use of insulin
CPT/HCPCS: 36415; 80053; 80197

== ENCOUNTER → 2022-07-15 10:06 | Outpatient (CLI) | payer OTHER, MEDICAID, SELFPAY ==
[2022-05-06 20:43] VITALS: BMI 25.0
[2022-07-15 11:25] LABS: Alanine Aminotransferase 53 IU/L (<50); Albumin 2.9 g/dL (3.5-5.0); Albumin Globulin Ratio 0.7 (1.0-2.8); Alkaline Phosphatase 186 U/L (38-126); Aspartate Aminotransferase 44 IU/L (17-59); BUN Creatinine Ratio 31.4 (6-22); Bilirubin Total 0.2 mg/dL (0.2-1.3); Blood Urea Nitrogen 61 mg/dL (9-20); Calcium 8.1 mg/dL (8.4-10.2); Carbon Dioxide 27 mmol/L (22-32); Chloride 98 mmol/L (98-107); Estimated Glomerular Filt Rate 41 mL/min (>60); Globulin 3.9 g/dL (1.7-4.1); Glucose 173 mg/dL (70-100); HEMOLYSIS < 15 (0-50); Potassium 4.3 mmol/L (3.4-5.1); Sodium 136 mmol/L (137-145); Total Protein 6.8 g/dL (6.3-8.2)
[2022-07-16 05:35] LABS: Tacrolimus 10.8 ng/mL (2.0-20.0)
== END ==
PROVIDERS: PCP Student in an Organized Health Care Education/Training Program; Referring Provider Internal Medicine Nephrology; Visit Provider Internal Medicine Nephrology
DX: E11.22 Type 2 diabetes mellitus with diabetic chronic kidney disease (principal); Z79.4 Long term (current) use of insulin; N06.9 Isolated proteinuria with unspecified morphologic lesion; N18.2 Chronic kidney disease, stage 2 (mild)
CPT/HCPCS: 36415; 80053; 80197

== ENCOUNTER → 2022-07-22 09:17 | Outpatient (CLI) | payer OTHER, MEDICAID, SELFPAY ==
[2022-05-06 20:43] VITALS: BMI 25.0
[2022-07-22 10:30] LABS: Hematocrit 23.5 % (41-53); Hemoglobin 7.7 g/dL (13.5-17.5)
[2022-07-22 10:35] LABS: HEMOLYSIS < 15 (0-50); Iron 32 ug/dL (49-181)
[2022-07-22 10:37] LABS: Alanine Aminotransferase 23 IU/L (<50); Albumin Globulin Ratio 0.8 (1.0-2.8); Alkaline Phosphatase 178 U/L (38-126); Aspartate Aminotransferase 21 IU/L (17-59); BUN Creatinine Ratio 37.4 (6-22); Bilirubin Total 0.2 mg/dL (0.2-1.3); Blood Urea Nitrogen 65 mg/dL (9-20); Carbon Dioxide 29 mmol/L (22-32); Chloride 95 mmol/L (98-107); Estimated Glomerular Filt Rate 47 mL/min (>60); Globulin 3.9 g/dL (1.7-4.1); Glucose 143 mg/dL (70-100); HEMOLYSIS < 15 (0-50); Potassium 4.6 mmol/L (3.4-5.1); Sodium 132 mmol/L (137-145); Total Protein 6.9 g/dL (6.3-8.2)
[2022-07-22 10:47] LABS: Percent Iron Saturation 12 % (20-50); Total Iron Binding Capacity 260 ug/dL (261-462); Transferrin 161 mg/dL (206-381)
[2022-07-22 11:10] LABS: Ferritin 45 ng/mL (18-464)
[2022-07-23 08:44] LABS: Tacrolimus 2.3 ng/mL (2.0-20.0)
== END ==
PROVIDERS: PCP Student in an Organized Health Care Education/Training Program; Referring Provider Internal Medicine Nephrology; Visit Provider Internal Medicine Nephrology
DX: N06.9 Isolated proteinuria with unspecified morphologic lesion (principal); E11.22 Type 2 diabetes mellitus with diabetic chronic kidney disease; N18.2 Chronic kidney disease, stage 2 (mild); Z79.4 Long term (current) use of insulin; I10 Essential (primary) hypertension
CPT/HCPCS: 36415; 80053; 80197; 82728; 83540; 83550; 85014; 85018

== ENCOUNTER → 2022-07-29 08:55 | Outpatient (CLI) | payer OTHER, MEDICAID, SELFPAY ==
[2022-05-06 20:43] VITALS: BMI 25.0
[2022-07-29 10:29] LABS: Hematocrit 25.9 % (41-53); Hemoglobin 8.6 g/dL (13.5-17.5)
[2022-07-29 10:42] LABS: Alanine Aminotransferase 23 IU/L (<50); Albumin 3.4 g/dL (3.5-5.0); Albumin Globulin Ratio 0.9 (1.0-2.8); Alkaline Phosphatase 164 U/L (38-126); Aspartate Aminotransferase 25 IU/L (17-59); BUN Creatinine Ratio 40.6 (6-22); Bilirubin Total 0.2 mg/dL (0.2-1.3); Blood Urea Nitrogen 80 mg/dL (9-20); Calcium 8.6 mg/dL (8.4-10.2); Carbon Dioxide 30 mmol/L (22-32); Chloride 97 mmol/L (98-107); Estimated Glomerular Filt Rate 41 mL/min (>60); Glucose 231 mg/dL (70-100); HEMOLYSIS < 15 (0-50); Potassium 4.8 mmol/L (3.4-5.1); Sodium 135 mmol/L (137-145); Total Protein 7.4 g/dL (6.3-8.2)
[2022-07-29 11:13] LABS: Ferritin 32 ng/mL (18-464)
[2022-07-29 11:14] LABS: HEMOLYSIS < 15 (0-50); Iron 141 ug/dL (49-181)
[2022-07-29 11:22] LABS: Creatinine Urine Random 35.8 mg/dL
[2022-07-29 11:27] LABS: Percent Iron Saturation 44 % (20-50); Total Iron Binding Capacity 320 ug/dL (261-462); Transferrin 231 mg/dL (206-381)
[2022-07-29 16:31] LABS: Microalbumi Creatinin Ratio Ur 9692.7 ug/mg CR (<30)
[2022-07-30 16:04] LABS: Tacrolimus 2.7 ng/mL (2.0-20.0)
== END ==
PROVIDERS: PCP Student in an Organized Health Care Education/Training Program; Referring Provider Internal Medicine Nephrology; Visit Provider Internal Medicine Nephrology
DX: N06.9 Isolated proteinuria with unspecified morphologic lesion (principal); E11.22 Type 2 diabetes mellitus with diabetic chronic kidney disease; N18.2 Chronic kidney disease, stage 2 (mild); I10 Essential (primary) hypertension
CPT/HCPCS: 36415; 80053; 80197; 82043; 82570; 82728; 83540; 83550; 85014; 85018

== ENCOUNTER → 2022-08-06 08:44 | Outpatient (CLI) | payer OTHER, MEDICAID, SELFPAY ==
[2022-05-06 20:43] VITALS: BMI 25.0
[2022-08-06 09:13] LABS: Hematocrit 29.7 % (41-53); Hemoglobin 9.9 g/dL (13.5-17.5)
[2022-08-06 09:50] LABS: HEMOLYSIS < 15 (0-50); Iron 99 ug/dL (49-181)
[2022-08-06 09:52] LABS: Alanine Aminotransferase 30 IU/L (<50); Alkaline Phosphatase 128 U/L (38-126); Aspartate Aminotransferase 37 IU/L (17-59); BUN Creatinine Ratio 46.1 (6-22); Bilirubin Total 0.3 mg/dL (0.2-1.3); Blood Urea Nitrogen 76 mg/dL (9-20); Calcium 8.7 mg/dL (8.4-10.2); Carbon Dioxide 34 mmol/L (22-32); Chloride 94 mmol/L (98-107); Estimated Glomerular Filt Rate 50 mL/min (>60); Glucose 146 mg/dL (70-100); HEMOLYSIS < 15 (0-50); Sodium 139 mmol/L (137-145); Total Protein 7.5 g/dL (6.3-8.2)
[2022-08-06 10:02] LABS: Percent Iron Saturation 28 % (20-50); Total Iron Binding Capacity 349 ug/dL (261-462); Transferrin 263 mg/dL (206-381)
[2022-08-06 10:25] LABS: Ferritin 33 ng/mL (18-464)
[2022-08-07 18:37] LABS: Tacrolimus 6.6 ng/mL (2.0-20.0)
[2022-08-09 17:51] LABS: Albumin 3.6 g/dL (3.5-5.0); Albumin Globulin Ratio 0.9 (1.0-2.8); Globulin 3.9 g/dL (1.7-4.1)
== END ==
PROVIDERS: PCP Student in an Organized Health Care Education/Training Program; Referring Provider Internal Medicine Nephrology; Visit Provider Internal Medicine Nephrology
DX: N06.9 Isolated proteinuria with unspecified morphologic lesion (principal); E11.22 Type 2 diabetes mellitus with diabetic chronic kidney disease; N18.2 Chronic kidney disease, stage 2 (mild); Z79.4 Long term (current) use of insulin; I10 Essential (primary) hypertension
CPT/HCPCS: 36415; 80053; 80197; 82043; 82570; 82728; 83540; 83550; 85014; 85018

== ENCOUNTER → 2022-08-12 08:34 | Outpatient (CLI) | payer OTHER, MEDICAID, SELFPAY ==
[2022-05-06 20:43] VITALS: BMI 25.0
[2022-08-12 10:06] LABS: Hematocrit 29.7 % (41-53); Hemoglobin 10.1 g/dL (13.5-17.5)
[2022-08-12 10:18] LABS: Creatinine Urine Random 33.4 mg/dL
[2022-08-12 10:37] LABS: BUN Creatinine Ratio 39.8 (6-22); Blood Urea Nitrogen 68 mg/dL (9-20); Calcium 8.6 mg/dL (8.4-10.2); Carbon Dioxide 34 mmol/L (22-32); Chloride 95 mmol/L (98-107); Estimated Glomerular Filt Rate 48 mL/min (>60); Glucose 150 mg/dL (70-100); HEMOLYSIS < 15 (0-50); Potassium 4.2 mmol/L (3.4-5.1); Sodium 135 mmol/L (137-145)
[2022-08-12 10:58] LABS: Microalbumi Creatinin Ratio Ur 11946.1 ug/mg CR (<30)
== END ==
PROVIDERS: PCP Student in an Organized Health Care Education/Training Program; Referring Provider Internal Medicine Nephrology; Visit Provider Internal Medicine Nephrology
DX: N06.9 Isolated proteinuria with unspecified morphologic lesion (principal); E11.22 Type 2 diabetes mellitus with diabetic chronic kidney disease; N18.2 Chronic kidney disease, stage 2 (mild); Z79.4 Long term (current) use of insulin; I10 Essential (primary) hypertension
CPT/HCPCS: 36415; 80048; 82043; 82570; 85014; 85018

== ENCOUNTER → 2022-08-26 08:31 | Outpatient (CLI) | payer OTHER, MEDICAID, SELFPAY ==
[2022-05-06 20:43] VITALS: BMI 25.0
[2022-08-27 16:31] LABS: Tacrolimus 6.6 ng/mL (2.0-20.0)
== END ==
PROVIDERS: PCP Student in an Organized Health Care Education/Training Program; Referring Provider Internal Medicine Nephrology; Visit Provider Internal Medicine Nephrology
DX: N05.0 Unspecified nephritic syndrome with minor glomerular abnormality (principal)
CPT/HCPCS: 36415; 80197

== ENCOUNTER → 2022-09-02 08:42 | Outpatient (CLI) | payer OTHER, MEDICAID, SELFPAY ==
[2022-05-06 20:43] VITALS: BMI 25.0
[2022-09-02 10:22] LABS: Hematocrit 32.9 % (41-53); Hemoglobin 11.3 g/dL (13.5-17.5)
[2022-09-02 10:37] LABS: Creatinine Urine Random 83.8 mg/dL
[2022-09-02 10:43] LABS: Protein (Total) Urine Random 411 mg/dL (0-12)
[2022-09-02 11:00] LABS: Calcium 9.6 mg/dL (8.4-10.2); Carbon Dioxide 28 mmol/L (22-32); Chloride 92 mmol/L (98-107); Estimated Glomerular Filt Rate 17 mL/min (>60); Glucose 128 mg/dL (70-100); HEMOLYSIS < 15 (0-50); Potassium 4.7 mmol/L (3.4-5.1); Sodium 135 mmol/L (137-145)
[2022-09-02 11:04] LABS: Microalbumi Creatinin Ratio Ur 4844.8 ug/mg CR (<30)
[2022-09-02 11:16] LABS: BUN Creatinine Ratio 29.3 (6-22)
[2022-09-02 11:38] LABS: Blood Urea Nitrogen 120 mg/dL (9-20)
[2022-09-03 13:15] LABS: Tacrolimus 9.2 ng/mL (2.0-20.0)
== END ==
PROVIDERS: PCP Student in an Organized Health Care Education/Training Program; Referring Provider Internal Medicine Nephrology; Visit Provider Internal Medicine Nephrology
DX: N05.0 Unspecified nephritic syndrome with minor glomerular abnormality (principal); N06.9 Isolated proteinuria with unspecified morphologic lesion; E11.22 Type 2 diabetes mellitus with diabetic chronic kidney disease; N18.2 Chronic kidney disease, stage 2 (mild); I10 Essential (primary) hypertension; Z79.4 Long term (current) use of insulin
CPT/HCPCS: 36415; 80048; 80197; 82043; 82570; 84156; 85014; 85018

== ENCOUNTER → 2022-09-09 08:30 | Outpatient (CLI) | payer OTHER, MEDICAID, SELFPAY ==
[2022-05-06 20:43] VITALS: BMI 25.0
[2022-09-09 09:52] LABS: Hematocrit 26.5 % (41-53); Hemoglobin 9.3 g/dL (13.5-17.5)
[2022-09-09 10:38] LABS: BUN Creatinine Ratio 40.9 (6-22); Blood Urea Nitrogen 61 mg/dL (9-20); Calcium 8.8 mg/dL (8.4-10.2); Carbon Dioxide 27 mmol/L (22-32); Chloride 102 mmol/L (98-107); Estimated Glomerular Filt Rate 57 mL/min (>60); Glucose 166 mg/dL (70-100); HEMOLYSIS < 15 (0-50); Potassium 4.9 mmol/L (3.4-5.1); Sodium 136 mmol/L (137-145)
[2022-09-09 11:34] LABS: Protein (Total) Urine Random 1274 mg/dL (0-12); Protein Creatinine Ratio Urine 17.69 GRAM/24H
[2022-09-10 15:42] LABS: Tacrolimus None Detected ng/mL (2.0-20.0)
== END ==
PROVIDERS: PCP Student in an Organized Health Care Education/Training Program; Referring Provider Internal Medicine Nephrology; Visit Provider Internal Medicine Nephrology
DX: N05.0 Unspecified nephritic syndrome with minor glomerular abnormality (principal); N06.9 Isolated proteinuria with unspecified morphologic lesion; E11.22 Type 2 diabetes mellitus with diabetic chronic kidney disease; N18.2 Chronic kidney disease, stage 2 (mild); Z79.4 Long term (current) use of insulin; I10 Essential (primary) hypertension
CPT/HCPCS: 36415; 80048; 80197; 82570; 84156; 85014; 85018

== ENCOUNTER → 2022-09-16 08:37 | Outpatient (CLI) | payer OTHER, MEDICAID, SELFPAY ==
[2022-05-06 20:43] VITALS: BMI 25.0
[2022-09-16 09:23] LABS: Hematocrit 25.2 % (41-53); Hemoglobin 8.8 g/dL (13.5-17.5)
[2022-09-16 10:09] LABS: BUN Creatinine Ratio 36.7 (6-22); Blood Urea Nitrogen 54 mg/dL (9-20); Calcium 8.3 mg/dL (8.4-10.2); Carbon Dioxide 28 mmol/L (22-32); Chloride 100 mmol/L (98-107); Estimated Glomerular Filt Rate 58 mL/min (>60); Glucose 163 mg/dL (70-100); HEMOLYSIS < 15 (0-50); Sodium 135 mmol/L (137-145)
[2022-09-16 16:46] LABS: Creatinine Urine Random 25.7 mg/dL; Protein (Total) Urine Random 371 mg/dL (0-12); Protein Creatinine Ratio Urine 14.43 GRAM/24H
[2022-09-17 14:08] LABS: Tacrolimus 4.6 ng/mL (2.0-20.0)
== END ==
PROVIDERS: PCP Student in an Organized Health Care Education/Training Program; Referring Provider Internal Medicine Nephrology; Visit Provider Internal Medicine Nephrology
DX: N05.0 Unspecified nephritic syndrome with minor glomerular abnormality (principal); N05.9 Unspecified nephritic syndrome with unspecified morphologic changes; E11.22 Type 2 diabetes mellitus with diabetic chronic kidney disease; N18.2 Chronic kidney disease, stage 2 (mild); Z79.4 Long term (current) use of insulin; I10 Essential (primary) hypertension
CPT/HCPCS: 36415; 80048; 80197; 82043; 82570; 84156; 85014; 85018

== ENCOUNTER → 2022-09-23 08:31 | Outpatient (CLI) | payer OTHER, MEDICAID, SELFPAY ==
[2022-05-06 20:43] VITALS: BMI 25.0
[2022-09-23 09:42] LABS: Hematocrit 25.8 % (41-53)
[2022-09-23 10:12] LABS: BUN Creatinine Ratio 35.5 (6-22); Blood Urea Nitrogen 71 mg/dL (9-20); Calcium 8.3 mg/dL (8.4-10.2); Carbon Dioxide 34 mmol/L (22-32); Chloride 93 mmol/L (98-107); Estimated Glomerular Filt Rate 40 mL/min (>60); Glucose 164 mg/dL (70-100); HEMOLYSIS < 15 (0-50); Potassium 4.7 mmol/L (3.4-5.1); Sodium 133 mmol/L (137-145)
[2022-09-23 11:13] LABS: Creatinine Urine Random 52.7 mg/dL
[2022-09-23 12:18] LABS: Microalbumi Creatinin Ratio Ur 16698.2 ug/mg CR (<30); Protein (Total) Urine Random 880 mg/dL (0-12); Protein Creatinine Ratio Urine 16.69 GRAM/24H
[2022-09-24 13:37] LABS: Tacrolimus 4.9 ng/mL (2.0-20.0)
== END ==
PROVIDERS: PCP Student in an Organized Health Care Education/Training Program; Referring Provider Internal Medicine Nephrology; Visit Provider Internal Medicine Nephrology
DX: N05.0 Unspecified nephritic syndrome with minor glomerular abnormality (principal); N06.9 Isolated proteinuria with unspecified morphologic lesion; E11.22 Type 2 diabetes mellitus with diabetic chronic kidney disease; N18.2 Chronic kidney disease, stage 2 (mild); Z79.4 Long term (current) use of insulin; I10 Essential (primary) hypertension
CPT/HCPCS: 36415; 80048; 80197; 82043; 82570; 84156; 85014; 85018

== ENCOUNTER → 2022-09-30 08:15 | Outpatient (CLI) | payer OTHER, MEDICAID, SELFPAY ==
[2022-05-06 20:43] VITALS: BMI 25.0
[2022-09-30 08:36] LABS: Hematocrit 24.6 % (41-53); Hemoglobin 8.6 g/dL (13.5-17.5)
[2022-09-30 10:28] LABS: BUN Creatinine Ratio 32.5 (6-22); Blood Urea Nitrogen 78 mg/dL (9-20); Calcium 8.6 mg/dL (8.4-10.2); Carbon Dioxide 30 mmol/L (22-32); Chloride 97 mmol/L (98-107); Estimated Glomerular Filt Rate 32 mL/min (>60); Glucose 145 mg/dL (70-100); HEMOLYSIS < 15 (0-50); Potassium 4.3 mmol/L (3.4-5.1); Sodium 134 mmol/L (137-145)
[2022-09-30 10:30] LABS: Creatinine Urine Random 38.7 mg/dL
[2022-09-30 12:20] LABS: Microalbumi Creatinin Ratio Ur 6180.8 ug/mg CR (<30); Microalbumin Urine Random 239.2 mg/dL (0-1.6); Protein (Total) Urine Random 571 mg/dL (0-12); Protein Creatinine Ratio Urine 14.75 GRAM/24H
[2022-10-01 15:57] LABS: Tacrolimus 5.7 ng/mL (2.0-20.0)
== END ==
PROVIDERS: PCP Student in an Organized Health Care Education/Training Program; Referring Provider Internal Medicine Nephrology; Visit Provider Internal Medicine Nephrology
DX: N05.0 Unspecified nephritic syndrome with minor glomerular abnormality (principal); N06.9 Isolated proteinuria with unspecified morphologic lesion; E11.22 Type 2 diabetes mellitus with diabetic chronic kidney disease; I10 Essential (primary) hypertension; Z79.4 Long term (current) use of insulin; N18.2 Chronic kidney disease, stage 2 (mild)
CPT/HCPCS: 36415; 80048; 80197; 82043; 82570; 84156; 85014; 85018

== ENCOUNTER → 2022-10-07 08:27 | Outpatient (CLI) | payer OTHER, MEDICAID, SELFPAY ==
[2022-05-06 20:43] VITALS: BMI 25.0
[2022-10-07 09:48] LABS: Hematocrit 25.4 % (41-53); Hemoglobin 8.7 g/dL (13.5-17.5)
[2022-10-07 10:14] LABS: BUN Creatinine Ratio 29.7 (6-22); Blood Urea Nitrogen 49 mg/dL (9-20); Calcium 8.7 mg/dL (8.4-10.2); Carbon Dioxide 25 mmol/L (22-32); Chloride 108 mmol/L (98-107); Estimated Glomerular Filt Rate 50 mL/min (>60); Glucose 159 mg/dL (70-100); HEMOLYSIS < 15 (0-50); Potassium 4.9 mmol/L (3.4-5.1); Sodium 136 mmol/L (137-145)
[2022-10-07 10:23] LABS: Creatinine Urine Random 64.5 mg/dL
[2022-10-07 10:37] LABS: Protein (Total) Urine Random 1515 mg/dL (0-12); Protein Creatinine Ratio Urine 23.48 GRAM/24H
[2022-10-07 11:58] LABS: Creatinine Urine Random 63.2 mg/dL; Microalbumi Creatinin Ratio Ur 26170.8 ug/mg CR (<30)
[2022-10-08 17:03] LABS: Tacrolimus 7.3 ng/mL (2.0-20.0)
== END ==
PROVIDERS: PCP Student in an Organized Health Care Education/Training Program; Referring Provider Internal Medicine Nephrology; Visit Provider Internal Medicine Nephrology
DX: N05.0 Unspecified nephritic syndrome with minor glomerular abnormality (principal); N06.9 Isolated proteinuria with unspecified morphologic lesion; E11.22 Type 2 diabetes mellitus with diabetic chronic kidney disease; N18.2 Chronic kidney disease, stage 2 (mild); I10 Essential (primary) hypertension; Z79.4 Long term (current) use of insulin
CPT/HCPCS: 36415; 80048; 80197; 82043; 82570; 84156; 85014; 85018

== ENCOUNTER → 2022-10-14 08:26 | Outpatient (CLI) | payer OTHER, MEDICAID, SELFPAY ==
[2022-05-06 20:43] VITALS: BMI 25.0
[2022-10-14 10:16] LABS: Hemoglobin 9.2 g/dL (13.5-17.5)
[2022-10-14 10:39] LABS: BUN Creatinine Ratio 25.6 (6-22); Blood Urea Nitrogen 44 mg/dL (9-20); Calcium 8.6 mg/dL (8.4-10.2); Carbon Dioxide 28 mmol/L (22-32); Chloride 104 mmol/L (98-107); Estimated Glomerular Filt Rate 48 mL/min (>60); Glucose 151 mg/dL (70-100); HEMOLYSIS < 15 (0-50); Potassium 4.3 mmol/L (3.4-5.1); Sodium 135 mmol/L (137-145)
[2022-10-14 16:46] LABS: Creatinine Urine Random 60.8 mg/dL
[2022-10-14 17:19] LABS: Microalbumi Creatinin Ratio Ur 23930.9 ug/mg CR (<30); Protein (Total) Urine Random 1455 mg/dL (0-12); Protein Creatinine Ratio Urine 23.93 GRAM/24H
== END ==
PROVIDERS: PCP Student in an Organized Health Care Education/Training Program; Referring Provider Internal Medicine Nephrology; Visit Provider Internal Medicine Nephrology
DX: N05.0 Unspecified nephritic syndrome with minor glomerular abnormality (principal); N06.9 Isolated proteinuria with unspecified morphologic lesion; E11.22 Type 2 diabetes mellitus with diabetic chronic kidney disease; N18.2 Chronic kidney disease, stage 2 (mild); I10 Essential (primary) hypertension; Z79.4 Long term (current) use of insulin
CPT/HCPCS: 36415; 80048; 80197; 82043; 82570; 84156; 85014; 85018

== ENCOUNTER → 2022-10-21 08:07 | Outpatient (CLI) | payer OTHER, MEDICAID, SELFPAY ==
[2022-05-06 20:43] VITALS: BMI 25.0
[2022-10-22 09:44] LABS: Creatinine Urine Random 63.4 mg/dL
[2022-10-22 10:26] LABS: Protein (Total) Urine Random 934 mg/dL (0-12); Protein Creatinine Ratio Urine 14.73 GRAM/24H
[2022-10-22 10:44] LABS: Microalbumi Creatinin Ratio Ur 14968.4 ug/mg CR (<30)
== END ==
PROVIDERS: PCP Student in an Organized Health Care Education/Training Program; Referring Provider Internal Medicine Nephrology; Visit Provider Internal Medicine Nephrology
DX: N06.9 Isolated proteinuria with unspecified morphologic lesion (principal); E11.22 Type 2 diabetes mellitus with diabetic chronic kidney disease; N18.2 Chronic kidney disease, stage 2 (mild); I10 Essential (primary) hypertension; Z79.4 Long term (current) use of insulin
CPT/HCPCS: 82043; 82570; 84156

== ENCOUNTER → 2022-10-28 07:59 | Outpatient (CLI) | payer OTHER, MEDICAID, SELFPAY ==
[2022-05-06 20:43] VITALS: BMI 25.0
[2022-10-28 09:00] LABS: Hematocrit 25.8 % (41-53); Hemoglobin 9.1 g/dL (13.5-17.5)
[2022-10-28 09:08] LABS: BUN Creatinine Ratio 27.6 (6-22); Blood Urea Nitrogen 59 mg/dL (9-20); Calcium 8.8 mg/dL (8.4-10.2); Carbon Dioxide 25 mmol/L (22-32); Chloride 105 mmol/L (98-107); Estimated Glomerular Filt Rate 37 mL/min (>60); Glucose 144 mg/dL (70-100); HEMOLYSIS < 15 (0-50); Potassium 4.6 mmol/L (3.4-5.1); Sodium 137 mmol/L (137-145)
[2022-10-28 09:51] LABS: Protein (Total) Urine Random 566 mg/dL (0-12); Protein Creatinine Ratio Urine 14.15 GRAM/24H
[2022-11-04 09:20] LABS: Tacrolimus 3.9
== END ==
PROVIDERS: PCP Student in an Organized Health Care Education/Training Program; Referring Provider Internal Medicine Nephrology; Visit Provider Internal Medicine Nephrology
DX: N05.0 Unspecified nephritic syndrome with minor glomerular abnormality (principal); N06.9 Isolated proteinuria with unspecified morphologic lesion; E11.22 Type 2 diabetes mellitus with diabetic chronic kidney disease; N18.2 Chronic kidney disease, stage 2 (mild); Z79.4 Long term (current) use of insulin; I10 Essential (primary) hypertension
CPT/HCPCS: 36415; 80048; 80197; 82043; 82570; 84156; 85014; 85018

== ENCOUNTER → 2022-11-04 08:52 | Outpatient (CLI) | payer OTHER, MEDICAID, SELFPAY ==
[2022-05-06 20:43] VITALS: BMI 25.0
[2022-11-04 10:01] LABS: Hematocrit 25.5 % (41-53); Hemoglobin 9.1 g/dL (13.5-17.5)
[2022-11-04 10:24] LABS: Blood Urea Nitrogen 57 mg/dL (9-20); Calcium 8.8 mg/dL (8.4-10.2); Carbon Dioxide 28 mmol/L (22-32); Chloride 101 mmol/L (98-107); Estimated Glomerular Filt Rate 37 mL/min (>60); Glucose 147 mg/dL (70-100); HEMOLYSIS < 15 (0-50); Potassium 4.5 mmol/L (3.4-5.1); Sodium 136 mmol/L (137-145)
[2022-11-04 12:11] LABS: Creatinine Urine Random 38.2 mg/dL; Microalbumi Creatinin Ratio Ur 8502.6 ug/mg CR (<30); Microalbumin Urine Random 324.8 mg/dL (0-1.6); Protein (Total) Urine Random 731 mg/dL (0-12); Protein Creatinine Ratio Urine 19.13 GRAM/24H
[2022-11-07 13:27] LABS: Tacrolimus 5.6
== END ==
PROVIDERS: PCP Student in an Organized Health Care Education/Training Program; Referring Provider Internal Medicine Nephrology; Visit Provider Internal Medicine Nephrology
DX: N05.0 Unspecified nephritic syndrome with minor glomerular abnormality (principal); E11.22 Type 2 diabetes mellitus with diabetic chronic kidney disease; N18.2 Chronic kidney disease, stage 2 (mild); Z79.4 Long term (current) use of insulin; I10 Essential (primary) hypertension
CPT/HCPCS: 36415; 80048; 80197; 82043; 82570; 84156; 85014; 85018

== ENCOUNTER → 2022-11-11 08:48 | Outpatient (CLI) | payer OTHER, MEDICAID, SELFPAY ==
[2022-05-06 20:43] VITALS: BMI 25.0
[2022-11-11 10:13] LABS: Hematocrit 24.4 % (41-53); Hemoglobin 8.7 g/dL (13.5-17.5)
[2022-11-11 10:38] LABS: BUN Creatinine Ratio 26.9 (6-22); Blood Urea Nitrogen 56 mg/dL (9-20); Calcium 8.9 mg/dL (8.4-10.2); Carbon Dioxide 29 mmol/L (22-32); Chloride 102 mmol/L (98-107); Estimated Glomerular Filt Rate 38 mL/min (>60); Glucose 141 mg/dL (70-100); HEMOLYSIS < 15 (0-50); Potassium 4.8 mmol/L (3.4-5.1); Sodium 135 mmol/L (137-145)
[2022-11-11 10:42] LABS: Creatinine Urine Random 46.9 mg/dL
[2022-11-11 11:09] LABS: Protein (Total) Urine Random 831 mg/dL (0-12)
[2022-11-11 11:11] LABS: Protein Creatinine Ratio Urine 17.71 GRAM/24H
[2022-11-11 11:17] LABS: Microalbumi Creatinin Ratio Ur 17505.3 ug/mg CR (<30)
[2022-11-22 11:09] LABS: Tacrolimus 5.7
== END ==
PROVIDERS: PCP Student in an Organized Health Care Education/Training Program; Referring Provider Internal Medicine Nephrology; Visit Provider Internal Medicine Nephrology
DX: N05.0 Unspecified nephritic syndrome with minor glomerular abnormality (principal); N06.9 Isolated proteinuria with unspecified morphologic lesion; E11.22 Type 2 diabetes mellitus with diabetic chronic kidney disease; N18.2 Chronic kidney disease, stage 2 (mild); Z79.4 Long term (current) use of insulin; I10 Essential (primary) hypertension
CPT/HCPCS: 36415; 80048; 80197; 82043; 82570; 84156; 85014; 85018

== ENCOUNTER → 2022-11-18 08:34 | Outpatient (CLI) | payer OTHER, MEDICAID, SELFPAY ==
[2022-05-06 20:43] VITALS: BMI 25.0
--- NOTE | 2022-11-18 08:38 | DI.NM.S_ITS ---
PROCEDURE: HI CAROLYN PERF SPECT SINGLE STUDY Resting myocardial perfusion SPECT, with gated imaging and ejection fraction RADIOPHARMACEUTICAL: 12.9 mCi 99m-Tc sestamibi intravenously. INDICATIONS: Chronic systolic (congestive) heart failure TECHNIQUE: Radiopharmaceutical was injected at rest. SPECT images were obtained. SPECT myocardial perfusion images were displayed in short axis, horizontal long axis, and vertical long axis views. Gated images were reviewed using LoLoQUANT software. COMPARISON: None. FINDINGS: Raw data: There is good tracer uptake by the myocardium. No significant motion artifacts. Left ventricle function: Gated images demonstrate global hypokinesis with akinesis of the basal to mid inferior wall. Left ventricle resting end-diastolic volume is 257 mL. Left ventricle resting ejection fraction is 32%; normal values are above 45%. Myocardial perfusion: There is a large size, moderate to severe inferior and inferoapical defect. IMPRESSION: Abnormal resting images. There is a large size, moderate to severe intensity inferior and inferolateral apical defect with akinesis of the basal to mid inferior wall. Global hypokinesis with LV dilation and reduced ejection fraction. Dictated by: Anitra Jeffers D.O. on 11/18/2022 at 16:25 Approved by: Anitra Jeffers D.O. on 11/18/2022 at 16:30
[2022-11-18 10:51] LABS: Hemoglobin 8.9 g/dL (13.5-17.5)
[2022-11-18 11:20] LABS: BUN Creatinine Ratio 26.9 (6-22); Blood Urea Nitrogen 61 mg/dL (9-20); Calcium 8.4 mg/dL (8.4-10.2); Carbon Dioxide 26 mmol/L (22-32); Chloride 99 mmol/L (98-107); Estimated Glomerular Filt Rate 34 mL/min (>60); Glucose 144 mg/dL (70-100); HEMOLYSIS < 15 (0-50); Potassium 4.2 mmol/L (3.4-5.1); Sodium 132 mmol/L (137-145)
[2022-11-18 12:22] LABS: Protein (Total) Urine Random 1613 mg/dL (0-12)
[2022-11-18 18:58] LABS: Microalbumi Creatinin Ratio Ur 19202.3 ug/mg CR (<30)
[2022-11-22 13:10] LABS: Tacrolimus 2.6
== END ==
PROVIDERS: Internal Medicine Nephrology; PCP Student in an Organized Health Care Education/Training Program; Referring Provider Internal Medicine Cardiovascular Disease; Visit Provider Internal Medicine Cardiovascular Disease
DX: E11.22 Type 2 diabetes mellitus with diabetic chronic kidney disease (principal); I13.0 Hypertensive heart and chronic kidney disease with heart failure and stage 1 through stage 4 chronic kidney disease, or unspecified chronic kidney disease; N18.2 Chronic kidney disease, stage 2 (mild); I50.22 Chronic systolic (congestive) heart failure; R94.39 Abnormal result of other cardiovascular function study; N05.0 Unspecified nephritic syndrome with minor glomerular abnormality; N06.9 Isolated proteinuria with unspecified morphologic lesion; Z79.4 Long term (current) use of insulin
CPT/HCPCS: 36415; 78451; 80048; 80197; 82043; 82570; 84156; 85014; 85018; A9502

== ENCOUNTER → 2022-11-26 07:53 | Outpatient (CLI) | payer OTHER, MEDICAID, SELFPAY ==
[2022-05-06 20:43] VITALS: BMI 25.0
[2022-11-26 08:51] LABS: Hemoglobin 8.3 g/dL (13.5-17.5)
[2022-11-26 09:31] LABS: BUN Creatinine Ratio 23.6 (6-22); Blood Urea Nitrogen 49 mg/dL (9-20); Calcium 8.5 mg/dL (8.4-10.2); Carbon Dioxide 23 mmol/L (22-32); Chloride 104 mmol/L (98-107); Estimated Glomerular Filt Rate 38 mL/min (>60); Glucose 131 mg/dL (70-100); HEMOLYSIS < 15 (0-50); Sodium 133 mmol/L (137-145)
[2022-11-26 09:32] LABS: Potassium 5.6 mmol/L (3.4-5.1)
[2022-11-26 18:14] LABS: Creatinine Urine Random 37.2 mg/dL
[2022-11-26 20:19] LABS: Microalbumi Creatinin Ratio Ur 15295.6 ug/mg CR (<30); Protein (Total) Urine Random 569 mg/dL (0-12); Protein Creatinine Ratio Urine 15.29 GRAM/24H
== END ==
PROVIDERS: PCP Student in an Organized Health Care Education/Training Program; Referring Provider Internal Medicine Nephrology; Visit Provider Internal Medicine Nephrology
DX: N05.0 Unspecified nephritic syndrome with minor glomerular abnormality (principal); N06.9 Isolated proteinuria with unspecified morphologic lesion; E11.22 Type 2 diabetes mellitus with diabetic chronic kidney disease; N18.2 Chronic kidney disease, stage 2 (mild); I10 Essential (primary) hypertension; Z79.4 Long term (current) use of insulin
CPT/HCPCS: 36415; 80048; 80197; 82043; 82570; 84156; 85014; 85018

== ENCOUNTER → 2022-12-07 09:11 | Outpatient (CLI) | payer OTHER, MEDICAID, SELFPAY ==
[2022-05-06 20:43] VITALS: BMI 25.0
[2022-12-08 10:40] LABS: Fructosamine 232 umol/L (0-285)
[2022-12-09 01:36] LABS: Labcorp Hemoglobin (Hb) A1c 6.2 % (4.8-5.6)
== END ==
PROVIDERS: PCP Student in an Organized Health Care Education/Training Program; Referring Provider Student in an Organized Health Care Education/Training Program; Visit Provider Student in an Organized Health Care Education/Training Program
DX: E11.22 Type 2 diabetes mellitus with diabetic chronic kidney disease (principal); N18.32 Chronic kidney disease, stage 3b; Z79.4 Long term (current) use of insulin
CPT/HCPCS: 36415; 82985; 83036

== ENCOUNTER → 2022-12-12 11:24 | Outpatient (CLI) | payer OTHER, MEDICAID, SELFPAY ==
[2022-05-06 20:43] VITALS: BMI 25.0
[2022-12-12 13:04] LABS: BUN Creatinine Ratio 27.6 (6-22); Blood Urea Nitrogen 55 mg/dL (9-20); Calcium 8.6 mg/dL (8.4-10.2); Carbon Dioxide 24 mmol/L (22-32); Chloride 104 mmol/L (98-107); Estimated Glomerular Filt Rate 40 mL/min (>60); Glucose 140 mg/dL (70-100); HEMOLYSIS < 15 (0-50); Magnesium 1.8 mg/dL (1.6-2.3); Potassium 4.6 mmol/L (3.4-5.1); Sodium 137 mmol/L (137-145)
[2022-12-13 13:08] LABS: Ionized Calcium 4.8 mg/dL (4.5-5.6)
== END ==
PROVIDERS: Referring Provider Pediatrics; Visit Provider Pediatrics
DX: E11.21 Type 2 diabetes mellitus with diabetic nephropathy (principal); E11.59 Type 2 diabetes mellitus with other circulatory complications; E11.22 Type 2 diabetes mellitus with diabetic chronic kidney disease; E11.69 Type 2 diabetes mellitus with other specified complication; E11.9 Type 2 diabetes mellitus without complications; E78.5 Hyperlipidemia, unspecified; G40.909 Epilepsy, unspecified, not intractable, without status epilepticus; I10 Essential (primary) hypertension; N18.30 Chronic kidney disease, stage 3 unspecified
CPT/HCPCS: 36415; 80048; 82330; 83735

== ENCOUNTER → 2023-02-18 09:22 | Outpatient (CLI) | payer OTHER, MEDICAID, SELFPAY ==
[2022-05-06 20:43] VITALS: BMI 25.0
[2023-02-18 12:33] LABS: Hematocrit 25.6 % (41-53)
[2023-02-18 13:10] LABS: Creatinine Urine Random 33.7 mg/dL
[2023-02-18 13:25] LABS: Alanine Aminotransferase 40 IU/L (<50); Albumin 3.1 g/dL (3.5-5.0); Albumin Globulin Ratio 0.9 (1.0-2.8); Alkaline Phosphatase 141 U/L (38-126); Aspartate Aminotransferase 48 IU/L (17-59); BUN Creatinine Ratio 33.8 (6-22); Bilirubin Total 0.6 mg/dL (0.2-1.3); Blood Urea Nitrogen 73 mg/dL (9-20); Calcium 8.4 mg/dL (8.4-10.2); Chloride 93 mmol/L (98-107); Estimated Glomerular Filt Rate 36 mL/min (>60); Globulin 3.3 g/dL (1.7-4.1); Glucose 128 mg/dL (70-100); HEMOLYSIS < 15 (0-50); Potassium 3.8 mmol/L (3.4-5.1); Sodium 134 mmol/L (137-145); Total Protein 6.4 g/dL (6.3-8.2)
[2023-02-18 13:41] LABS: Carbon Dioxide 35 mmol/L (22-32)
[2023-02-18 21:04] LABS: Microalbumi Creatinin Ratio Ur 28011.8 ug/mg CR (<30); Protein (Total) Urine Random 944 mg/dL (0-12); Protein Creatinine Ratio Urine 28.01 GRAM/24H
== END ==
PROVIDERS: Referring Provider Internal Medicine Nephrology; Visit Provider Internal Medicine Nephrology
DX: R80.9 Proteinuria, unspecified (principal); N06.9 Isolated proteinuria with unspecified morphologic lesion; E11.22 Type 2 diabetes mellitus with diabetic chronic kidney disease; N18.2 Chronic kidney disease, stage 2 (mild); Z79.4 Long term (current) use of insulin; N17.9 Acute kidney failure, unspecified
CPT/HCPCS: 36415; 80053; 82043; 82570; 84156; 85014; 85018

== ENCOUNTER → 2023-02-21 08:41 | Outpatient (CLI) | payer OTHER, MEDICAID, SELFPAY ==
[2022-05-06 20:43] VITALS: BMI 25.0
[2023-02-21 09:02] LABS: HEMOLYSIS < 15 (0-50); Iron 54 ug/dL (49-181)
[2023-02-21 09:13] LABS: Percent Iron Saturation 16 % (20-50); Total Iron Binding Capacity 337 ug/dL (261-462); Transferrin 238 mg/dL (206-381)
[2023-02-21 09:39] LABS: Ferritin 62 ng/mL (18-464)
== END ==
PROVIDERS: Referring Provider Internal Medicine Nephrology; Visit Provider Internal Medicine Nephrology
DX: N18.32 Chronic kidney disease, stage 3b (principal); I10 Essential (primary) hypertension; E11.22 Type 2 diabetes mellitus with diabetic chronic kidney disease; N18.2 Chronic kidney disease, stage 2 (mild); R80.9 Proteinuria, unspecified; N18.9 Chronic kidney disease, unspecified; D63.1 Anemia in chronic kidney disease; Z79.4 Long term (current) use of insulin
CPT/HCPCS: 82728; 83540; 83550

== ENCOUNTER → 2023-03-20 08:49 | Outpatient (CLI) | payer OTHER, MEDICAID, SELFPAY ==
[2022-05-06 20:43] VITALS: BMI 25.0
--- NOTE | 2023-03-20 | DI.ECHO.S_ITS ---
[facility] +---------+ : : [address] : : : : [id number] : : : : Phone: [phone]+ Echocardiogram Report + + :Name: CUCO CHAU JR Study Date: 03/20/2023 Height: 74 in : :[facility] ReadingLocation: Weight: 185 lb : : Gender: Male BSA: 2.1 m2 : :: 1970 Age: 52 yrs BP: 127/73 mmHg: :Reason For Study: CHRONIC SYSTOLIC HEART FAILURE : :Ordering Physician: ARMANI, : :ANITRA Baker Performed By: Luiza Perez : :Referring: ANITRA JEFFERS : + + Interpretation Summary The left ventricle is mildly dilated. The ejection fraction is estimated to be 30-35%. Diastolic function could not be accurately assessed due to unobtainable data. The left atrium is severely dilated. The right ventricle is mildly dilated. The right ventricular systolic function is normal. The right atrium is mildly dilated. There is moderate to severe mitral regurgitation. There is trace aortic regurgitation. There is mild tricuspid regurgitation. Pulmonary artery pressures cannot be estimated because of the lack of a measurable TR jet velocity. There is a moderate pericardial effusion noted near the right atrium and right ventricle without evidence of tamponade. Compared to the prior study dated 05/07/2022, the ejection fraction has increased but the mitral regurgitation appears to have worsened. The pericardial effusion appears to have been present on the prior study near the right atrium however the pericardium near the right ventricle is not well visualized.. Procedure: A two-dimensional transthoracic echocardiogram with color flow and Doppler was performed. The study quality was technically adequate. Comparison is made with the echocardiogram of 05/07/2022. The heart rate ranged between 74-87 bpm during the study. Left Ventricle: The left ventricle is mildly dilated. The estimated left ventricular end diastolic volume is 169 ml. There is eccentric hypertrophy. The ejection fraction is estimated to be 30-35%. Diastolic function could not be accurately assessed due to unobtainable data. Right Ventricle: The right ventricle is mildly dilated. The right ventricular systolic function is normal. Atria: The left atrium is severely dilated. The right atrium is mildly dilated. There is no Doppler evidence for an interatrial shunt. Mitral Valve: The mitral valve leaflets appear mildly thickened, but open well. There is mild to moderate mitral annular calcification. There is moderate to severe mitral regurgitation. Aortic Valve: The aortic valve is trileaflet. The aortic valve opens well. There is no aortic valve stenosis. There is trace aortic regurgitation. Tricuspid Valve: The tricuspid valve is normal in structure and function. There is mild tricuspid regurgitation. Pulmonary artery pressures cannot be estimated because of the lack of a measurable TR jet velocity. Pulmonic Valve: The pulmonic valve is not well visualized. There is no pulmonic valvular regurgitation. Great Vessels: The aortic root is normal size. The pulmonary artery is normal size. The IVC is of normal diameter and collapses greater than 50% with a sniff. This suggests a low right atrial pressure of 3 mm Hg. Pericardium/ Pleura There is a moderate pericardial effusion noted. MMode/2D Measurements & Calculations LVIDd: 6.1 cm LVOT diam: 2.6 cm LVIDs: 4.9 cm Ao root diam: 3.9 cm FS: 19.9 % asc Aorta Diam: 3.5 cm EPSS: 1.9 cm Ao Arch Diam (Prox Trans): 3.2 cm IVSd: 1.1 cm LVPWd: 1.1 cm LV ray. diameter/BSA (cm/m^2): 2.9 LV sys. diameter/BSA (cm/m^2): 2.3 LA A2 area: 32.1 cm2 RA long axis: 5.1 cm LA A4 area: 32.7 cm2 RA area: 20.9 cm2 LA length (vol): 6.5 cm RA vol: 71.9 ml LA vol: 136.6 ml RA : 34.2 ml/m2 LA vol index: 65.0 ml/m2 IVC diam: 1.8 cm RVD1 (basal): 4.5 cm RVD2 (mid): 3.2 cm TAPSE: 1.8 cm Doppler Measurements & Calculations Ao V2 max: 100.3 cm/sec LVOT Max Jay[place]ob: 77.9 cm/sec Ao V2 mean: 78.2 cm/sec LV V1 max P.4 mmHg Ao max P.0 mmHg LV V1 VTI: 15.9 cm Ao mean P.6 mmHg ELISSA(I,D): 4.2 cm2 Ao V2 VTI: 20.1 cm ELISSA(V,D): 4.1 cm2 sev ratio: 0.79 ELISSA indexed to BSA (cm^2/m^2): 2.0 MV E max jaycob: 113.5 cm/sec PA V2 max: 66.3 cm/sec MV A max jaycob: 48.2 cm/sec PA V2 mean: 45.1 cm/sec MV E/A: 2.4 PA mean P.92 mmHg Med Peak E' Jaycob: 4.0 cm/sec PA pr(Accel): 39.6 mmHg E/E' med: 28.3 Lat Peak E' Jaycob: 8.5 cm/sec E/E' lat: 13.3 E/e' average: 20.8 MV dec time: 0.15 sec MR ERO: 0.41 cm2 MR PISA: 5.2 cm2 SV(LVOT): 83.6 ml MR flow rate: 192.3 cm3/sec MR PISA radius: 0.91 cm Reading Physician:03:15 PM
== END ==
PROVIDERS: Referring Provider Internal Medicine Cardiovascular Disease; Visit Provider Internal Medicine Cardiovascular Disease
DX: I50.22 Chronic systolic (congestive) heart failure (principal); I08.1 Rheumatic disorders of both mitral and tricuspid valves; I31.39 Other pericardial effusion (noninflammatory)
CPT/HCPCS: 93306

== ENCOUNTER → 2023-06-03 11:41 | Outpatient (CLI) | payer OTHER, MEDICAID, SELFPAY ==
[2022-05-06 20:43] VITALS: BMI 25.0
[2023-06-03 12:48] LABS: Add Manual Diff / Slide Review NO; Basophils Absolute Auto 0 /uL (0-100); Basophils Percent Auto 0.3 % (0-2); Eosinophils Absolute Auto 100 /uL (0-450); Eosinophils Percent Auto 0.4 % (2-4); Hematocrit 24.7 % (41-53); Hemoglobin 8.2 g/dL (13.5-17.5); Lymphocytes Absolute Auto 500 /uL (1100-4500); Lymphocytes Percent Auto 3.7 % (25-40); Mean Corpuscular HGB Conc 33.4 % (30-36); Mean Corpuscular Hemoglobin 31.1 PG (26-34); Mean Corpuscular Volume 93.2 fL (80-100); Monocytes Absolute Auto 1000 /uL (0-900); Monocytes Percent Auto 7.8 % (3-14); Neutrophils Absolute Auto 11700 /uL (1500-7000); Neutrophils Percent Auto 87.8 % (50-75); Platelet Count 142 X10^3/uL (150-400); Red Blood Cell Count 2.65 X10^6/uL (4.5-5.9); Red Cell Distribution Width 14.2 % (11.6-14.8); White Blood Cell Count 13.4 X10^3/uL (4.5-11.0)
[2023-06-03 13:40] LABS: Alanine Aminotransferase 21 IU/L (<50); Albumin 2.7 g/dL (3.5-5.0); Albumin Globulin Ratio 0.8 (1.0-2.8); Alkaline Phosphatase 241 U/L (38-126); Aspartate Aminotransferase 27 IU/L (17-59); BUN Creatinine Ratio 23.8 (6-22); Bilirubin Total 0.6 mg/dL (0.2-1.3); Blood Urea Nitrogen 77 mg/dL (9-20); Carbon Dioxide 26 mmol/L (22-32); Chloride 95 mmol/L (98-107); Estimated Glomerular Filt Rate 22 mL/min (>60); Globulin 3.6 g/dL (1.7-4.1); Glucose 112 mg/dL (70-100); HEMOLYSIS < 15 (0-50); Potassium 4.3 mmol/L (3.4-5.1); Sodium 131 mmol/L (137-145); Total Protein 6.3 g/dL (6.3-8.2)
== END ==
PROVIDERS: PCP Family Medicine; Referring Provider Internal Medicine Cardiovascular Disease; Visit Provider Internal Medicine Cardiovascular Disease
DX: I34.0 Nonrheumatic mitral (valve) insufficiency (principal)
CPT/HCPCS: 36415; 80053; 85025